=== PATIENT | female | born 1980 | race Caucasian/White ===

== ENCOUNTER 2022-04-19 08:00 | Outpatient (CLI) | payer BC, SELFPAY ==
--- NOTE | 2022-04-19 08:15 | CRLHL7_ITS ---
For Patients: As a result of the Century Cures Act, medical imaging exams and procedure reports are released immediately into your electronic medical record. You may view this report before your referring provider. If you have questions, please contact your health care provider. ULTRASOUND-GUIDED LEFT AXILLARY LYMPH NODE BIOPSY AND MARKER PLACEMENT CLINICAL HISTORY: Suspicious LEFT axillary lymph node. COMPARISON STUDIES: 04/11/2022. TECHNIQUE: Real-time ultrasound with image documentation was used for targeting the axillary lesion. Core biopsy specimens were obtained using an automated gun with an 18-gauge biopsy needle. CONSENT and TIME OUT: The procedure, risks, and alternatives were explained to the patient and a consent was signed. [place] Protocol was followed including pre-procedure verification that relevant information/documentation was available, reviewed and properly matched to the patient; consent accurate and complete; and equipment and supplies available. Time Out was conducted just prior to starting procedure to verify the four required elements: patient identity, correct side/site marked (if applicable), procedure, relevant images/results properly labeled and displayed (if applicable). PROCEDURE: The patient was positioned supine on the ultrasound table. The LEFT axilla was prepped with ChloraPrep. 8 cc 1 percent lidocaine used for local anesthesia. Core samples were obtained. A sterile metal biopsy clip was placed percutaneously to britt the lesion position within the LEFT axilla. The specimens were placed in 10% formalin and sent to the pathology department. Pressure was held on the biopsy site until all bleeding subsided. The skin incision was closed with Steri-Strips. An ice pack was positioned over the biopsy site. Post-biopsy instructions were reviewed with the patient, and a written copy was given to her. LATERALITY: LEFT axilla. LESION: Enlarged LEFT axillary lymph node with a thickened hypoechoic cortex measuring 2.4 x 1.0 x 1.1 cm. SUSPICION FOR MALIGNANCY: High. NUMBER OF SAMPLES: 5. BIOPSY CLIP SHAPE: Coil. PROXIMITY OF CLIP TO TARGET: Within the lesion. IMPRESSION: Ultrasound-guided LEFT axillary lymph node biopsy. When the pathology report is available, an addendum to this report will be made. ACR not applicable Dictated by Humble Burnham MD @ 04/19/2022 11:00:16 AM jj/Dictated by: Humble Burnham MD @ 04/19/2022 11:00:00 AM (Electronically Signed) ----ADDENDUM---- Addendum: Pathology consistent with metastatic disease to the LEFT axillary lymph node. This is concordant. Appropriate action recommended. HUMBLE BURNHAM M.D. Diagnostic Radiologist [email or web address] HOLDEN/tracy D& Transcribed: 2:[address]/Dictated by: Humble Burnham MD @ 04/19/2022 11:00:00 AM Signed by:?Humble Burnham MD @04/22/2022 3:37:46 PM (Electronic Signature)
--- NOTE | 2022-04-19 09:15 | CRLHL7_ITS ---
For Patients: As a result of the Century Cures Act, medical imaging exams and procedure reports are released immediately into your electronic medical record. You may view this report before your referring provider. If you have questions, please contact your health care provider. ULTRASOUND-GUIDED CORE NEEDLE BREAST BIOPSY OF TWO AND POST-BIOPSY DIGITAL MAMMOGRAM FOR BIOPSY MARKER PLACEMENT CLINICAL HISTORY: Suspicious LEFT breast masses. COMPARISON STUDIES: 04/11/2022. TECHNIQUE: Real-time ultrasound with image documentation was used for targeting the breast lesions. A spring-loaded biopsy system was used to obtain core tissue samples with an 18-gauge needle. Post-biopsy CC and ML digital mammograms were obtained to document position of the biopsy marker. CONSENT and TIME OUT: The procedure, risks, and alternatives were explained to the patient and a consent was signed. [place] Protocol was followed including pre-procedure verification that relevant information/documentation was available, reviewed and properly matched to the patient; consent accurate and complete; and equipment and supplies available. Time Out was conducted just prior to starting procedure to verify the four required elements: patient identity, correct side/site marked (if applicable), procedure, relevant images/results properly labeled and displayed (if applicable). PROCEDURE: All biopsies were performed in a similar manner. The patient was positioned supine on the ultrasound table. The breast was prepped with ChloraPrep. 8 cc of 1 percent lidocaine used for local anesthesia regarding each site. Core samples were obtained. A sterile metal biopsy clip was placed percutaneously to britt the lesion position within the breast. The specimens were placed in 10% formalin and sent to the Pathology Department. Pressure was held on the biopsy site until all bleeding subsided. The skin incision was closed with Steri-Strips. An ice pack was positioned over the biopsy site. The patient tolerated the procedure well. Post-biopsy instructions were reviewed with the patient, and a written copy was given to her. SITE A: LATERALITY: LEFT breast. LESION: Spiculated hypoechoic solid mass 2 o`clock 8 cm from the nipple measuring approximately 4.0 x 2.8 x 2.1 cm. SUSPICION: High. NUMBER OF SAMPLES: 5. BIOPSY CLIP SHAPE: Ribbon. PROXIMITY OF CLIP TO TARGET: Within the lesion. SITE B: LATERALITY: LEFT breast. LESION: Solid lobulated hypoechoic mass measuring 1.3 x 1.1 x 1.5 cm 1 o`clock 10 cm from the nipple. SUSPICION: High. NUMBER OF SAMPLES: 5. BIOPSY CLIP SHAPE: Coil. PROXIMITY OF CLIP TO TARGET: Within the lesion. DISTANCE BETWEEN: Sites A and B: 1 cm. IMPRESSION: Ultrasound-guided breast biopsy of two sites. When the pathology report is available, an addendum to this report will be made. ACR not applicable Dictated by Humble Burnham MD @ 04/19/2022 10:52:42 AM jj/Dictated by: Humble Burnham MD @ 04/19/2022 10:52:00 AM (Electronically Signed) ----ADDENDUM---- Addendum: Pathology consistent with invasive ductal carcinoma for both breast lesions and metastatic disease to the LEFT axillary lymph node. These results are concordant. Appropriate action is recommended. HUMBLE BURNHAM M.D. Diagnostic Radiologist [email or web address] HOLDEN/tracy D& Transcribed: 2:30 p.m. Signed by:?Humble Burnham MD @04/22/2022 3:37:43 PM (Electronic Signature)
--- NOTE | 2022-04-19 10:00 | CRLHL7_ITS ---
For Patients: As a result of the Cures Act, medical imaging exams and procedure reports are released immediately into your electronic medical record. You may view this report before your referring provider. If you have questions, please contact your health care provider. PLEASE SEE ULTRASOUND-GUIDED LEFT BREAST TWO-SITE BIOPSY PERFORMED SAME DAY CRL:[email or web address] marks/Dictated by: Donadl Bowie MD @ 04/19/2022 10:53:00 AM (Electronically Signed)
== END 2022-04-19 08:01 | disposition home or self-care (01) ==
LOC: US 08:05
PROVIDERS: Visit Provider Physician Assistant Medical
DX: N63.20 Unspecified lump in the left breast, unspecified quadrant (principal); C50.912 Malignant neoplasm of unspecified site of left female breast; R92.8 Other abnormal and inconclusive findings on diagnostic imaging of breast
CPT/HCPCS: 19083; 19084; 38505; 76942; 77065; 88305; 88342; 88361; 88377; A4648; A4649

== ENCOUNTER 2022-04-26 14:49 | Outpatient (CLI) | payer BC, SELFPAY ==
--- NOTE | 2022-04-26 15:00 | CRLHL7_ITS ---
For Patients: As a result of the Century Cures Act, medical imaging exams and procedure reports are released immediately into your electronic medical record. You may view this report before your referring provider. If you have questions, please contact your health care provider. BILATERAL BREAST MRI WITHOUT AND WITH GADOLINIUM, 04/26/2022 CLINICAL HISTORY: New diagnosis LEFT breast cancer. Diagnosed by ultrasound biopsy 04/19/2022. Biopsy-proven lymph node involvement. Two sites of cancer within the LEFT breast as well as a positive lymph node. History of BILATERAL silicone breast implants for augmentation. History of breast lift 10/2021. INDICATION FOR BREAST MRI: Staging of newly diagnosed breast cancer and screening of contralateral breast. Regional lymph nodes will also be assessed. COMPARISON STUDIES: BILATERAL mammogram 04/11/2022, ultrasound breast biopsy two sites with ultrasound-guided lymph node biopsy LEFT axilla 04/19/2022. CONTRAST: 15 mL Dotarem. TECHNIQUE: The patient was positioned prone using a breast coil. Multiple imaging sequences were obtained using 1-1.5 mm thick slices with no gap. The image sequences include T2-weighted STIR in the axial plane, T1-weighted nonfat-saturated gradient echo in the axial plane, pre- and post-contrast T1-weighted FLASH 3D with fat suppression in the axial plane, and T1-weighted FLASH high-resolution 3D with fat suppression in the sagittal plane. Image post-processing was performed on a [employer] workstation. Complex 3D rendering including maximum intensity projections (MIPS) and volumetric renderings were obtained to optimize visualization of the extent of pathology and relationship to the nipple, skin, and chest wall. This aids in determining feasibility of breast conservation surgery. Subtraction, multiplanar reconstruction, mean curve determination, and angiogenesis mapping were also performed. The study was technically adequate. FINDINGS: Breast Density: Scattered fibroglandular tissue. Breast Background Enhancement: Mild. RIGHT Breast: Negative for suspicious mass or non mass enhancement. LEFT Breast: Correlating with the ultrasound-guided biopsy at 2 o???clock 8 cm from the nipple there is a solid irregular mass containing a marker clip placed at biopsy. Measurement of the spiculated mass is 3 x 4 x 1.7 cm. At the 1 o???clock position the second site of cancer is identified as a solid enhancing rounded mass containing marker clip measurement 1 cm in diameter. In addition, there is segmental non mass enhancement extending toward the nipple over a length of 7 cm. This is suspicious enhancement and may correlate with the DCIS component of the diagnosis. If it would impact the treatment plan, consider biopsy of a more anterior site with MRI guidance. There is a small area of fat necrosis in the medial LEFT breast. Lymph Nodes: No enlarged RIGHT axillary nodes. There are enlarged lymph nodes in the LEFT axilla; one of which contains marker clip. At least three abnormal lymph nodes visualized. Other Findings: BILATERAL silicone breast implants subpectoral location unremarkable appearance. IMPRESSIONS AND RECOMMENDATIONS: Two biopsy-proven sites of breast cancer; the largest of which is at 2 o???clock 8 cm from the nipple measurement on MRI 3.1 x 4.4 x 1.7 cm. Second site 1 cm enhancing mass medial to the primary site. In addition, abnormal non mass enhancement extending towards the nipple 7 cm. If it would impact treatment consider biopsy of anterior site of enhancement to determine extent of disease. Abnormal LEFT axillary lymph nodes. RIGHT breast is negative. RIGHT axilla negative. BI-RADS: BI-RADS Category 4: Suspicious Yessenia Arreaga M.D. Body/Breast Radiologist [email or web address] ODELL/sarah Transcribed: 9:22 a.m. JR/Dictated by: Yessenia Arreaga MD @ 05/01/2022 9:10:00 AM (Electronically Signed)
== END 2022-04-26 14:50 | disposition home or self-care (01) ==
LOC: MRI 14:51
PROVIDERS: PCP Physician Assistant Medical; Visit Provider Surgery
DX: C50.912 Malignant neoplasm of unspecified site of left female breast (principal)
CPT/HCPCS: 77049; A9575

== ENCOUNTER 2022-05-07 07:56 | Day surgery (SDC) | payer BC, SELFPAY ==
[2022-05-07 08:14] VITALS: BMI 29.0
[2022-05-07] MEDS: SODIUM CHLORIDE 0.9 % (FLUSH) 10 ML SYRINGE IVF (08:30)
[2022-05-07] MEDS: LACTATED RINGERS 1000 ML 1,000 ML 100 ML IV (08:30)
[2022-05-07 08:36] VITALS: BP 134/84; PULSE 80; RESP 16; TEMP 36.7; O2SAT 99
--- NOTE | 2022-05-07 08:41 | SUR.PREOP ---
HOME COVID NEGATIVE.
--- NOTE | 2022-05-07 09:15 | CRLHL7_ITS ---
For Patients: As a result of the Century Cures Act, medical imaging exams and procedure reports are released immediately into your electronic medical record. You may view this report before your referring provider. If you have questions, please contact your health care provider. Indication: Port placement Technique: One fluoroscopic image of the upper chest. Fluoroscopic time 30.9 seconds. IMPRESSION: Fluoroscopic guidance for Port-A-Cath placement. Dictated by Donald Bowie MD @ 05/07/2022 10:20:14 AM (Electronically Signed)
[2022-05-07] MEDS: CEFAZOLIN 2 GM INJ IVP (09:20)
--- NOTE | 2022-05-07 09:20 | W.ANESCHARGE ---
Anesthesia Charges Start Date/Time Anesthesia Start Date: 05/07/22 Anesthesia Start Time: 09:10 Stop Date/Time Anesthesia Stop Date: 05/07/22 Anesthesia Stop Time: 10:13 Summary Emergency: No
[2022-05-07] MEDS: LIDOCAINE 1 % PF 30 ML INJECTION (09:27)
[2022-05-07] MEDS: BUPIVACAINE 0.5% 30 ML INJECTION (09:27)
[2022-05-07] MEDS: 0.9 % SODIUM CHL 20 ml vial INJECTION (09:40)
[2022-05-07] MEDS: HEPARIN 500 UNIT/5 ML SYRINGE IVF (09:50)
[2022-05-07] MEDS: ACETAMINOPHEN 325 MG TABLET 650 MG PO (10:04)
--- NOTE | 2022-05-07 10:04 | CRLHL7_ITS ---
For Patients: As a result of the Century Cures Act, medical imaging exams and procedure reports are released immediately into your electronic medical record. You may view this report before your referring provider. If you have questions, please contact your health care provider. Indication: POST OP PORT PLACEMENT Technique: Chest one view IMPRESSION: Right-sided Port-A-Cath is present with the tip in the mid SVC. No pneumothorax or pleural effusion. Dictated by Donald Bowie MD @ 05/07/2022 10:25:33 AM (Electronically Signed)
--- NOTE | 2022-05-07 10:07 | PM.GSPRC ---
Operative Note Date of procedure: 05/07/22 Pre-op diagnosis: Breast cancer Post-op diagnosis: Same Type of Procedure: Right internal jugular Port-A-Cath Indications: Patient is a 42-year-old female with recently new diagnosis invasive ductal carcinoma of the left breast. She has met with a surgeon, and an oncologist with recommendations for neoadjuvant treatment. Risks and benefits of port a catheter placement were discussed at length with the patient. Risks included, but were not limited to: Bleeding, infection, risk of damage to surrounding structures possible need for additional procedures. All questions and concerns were addressed with patient agreeing to proceed. Procedure Description: After discussing the risks and benefits of the procedure, the patient signed informed consent.? The operative site was marked and the patient was brought to the operating room and placed on the operating table in supine position.? Care was taken to pad the patient's pressure points.?? The patient was then given sedation by anesthesia.?? The operative site was then prepped and draped in the usual sterile fashion.? A time-out was then performed. The patient's right internal jugular vein was visualized using ultrasound. Local anesthetic was injected into the neck skin above the vein. This was accessed percutaneously via Seldinger technique using ultrasound guidance. A skin brittanie was made around the wire. Next local anesthetic was injected into the skin below the clavicle and along the proposed tract to the neck incision. A skin incision was then made with a 15 blade and a pocket created in the chest wall with cautery. A tunneler was then used to thread the catheter from the chest wall pocket to the neck incision. Once this was done fluoroscopy was brought into the field. Over the wire the tract was dilated using fluoroscopy. The wire and the dilator were then removed leaving the sheath intact in the vein. Through this the catheter was threaded. Using fluoroscopy the catheter was positioned into the distal SVC. The catheter was noted to flush and aspirate easily. The catheter was then connected to the port. The port was placed in the pocket and secured in place with two 2 0 Prolene stay sutures. It was noted to flush and aspirate easily. This was then locked with heparinized saline. The skin was closed with absorbable suture. Sterile dressings were applied. Instrument sponge and needle counts were correct at the end of the case. The patient was woken and taken to the PACU in stable condition. ? Findings: Compressible right internal jugular vein, successful placement of port a catheter Anesthesia: MAC Surgeon: Corina Zambrano MD Estimated blood loss (mL): 5 Condition: stable Disposition: same day
[2022-05-07 10:08] VITALS: BP 140/85; PULSE 82; RESP 16; TEMP 36.9; O2SAT 98
--- NOTE | 2022-05-07 10:14 | W.ANESCHARGE ---
Anesthesia Charges Start Date/Time Anesthesia Start Date: 05/07/22 Anesthesia Start Time: 09:10 Stop Date/Time Anesthesia Stop Date: 05/07/22 Anesthesia Stop Time: 10:13 Summary Emergency: No
[2022-05-07 10:15] VITALS: BP 133/87; PULSE 78; RESP 16; O2SAT 98
[2022-05-07 10:30] VITALS: BP 121/79; PULSE 67; RESP 16; O2SAT 98
[2022-05-07 10:45] VITALS: BP 116/76; PULSE 68; RESP 16; O2SAT 98
[2022-05-07 11:00] VITALS: BP 115/71; PULSE 67; RESP 16; O2SAT 97
== END 2022-05-07 11:30 | disposition home or self-care (01) ==
PROVIDERS: PCP Physician Assistant Medical; Visit Provider Surgery
PROC: (CPT 36561; principal; 2022-05-07 09:15)
DX: Z45.2 Encounter for adjustment and management of vascular access device (principal); C50.912 Malignant neoplasm of unspecified site of left female breast; Z17.0 Estrogen receptor positive status [ER+]
CPT/HCPCS: 36561; 00532; 71045; A9270; C1788; J0690; J1642; J1885; J2001; J2250; J2405; J2704; J3010; J3490; J7120

== ENCOUNTER 2022-05-10 12:53 | Outpatient (CLI) | payer BC, SELFPAY ==
[2022-05-10] MEDS: PERFLUTREN LIPID MICROSPHERES 2 ML VIAL IV (13:46)
--- NOTE | 2022-05-10 13:47 | PC.NURSE ---
Definity given via 20g PIV in right wrist 2ml pushed. tolerated well. Lot# [id number] Exp Date: 01/14/23. PIV taken out and catheter intact.
== END 2022-05-10 12:54 | disposition home or self-care (01) ==
LOC: RAD 12:53
PROVIDERS: PCP Physician Assistant Medical; Visit Provider Nurse Practitioner Family
DX: Z51.11 Encounter for antineoplastic chemotherapy (principal); C50.919 Malignant neoplasm of unspecified site of unspecified female breast
CPT/HCPCS: 93306; Q9957

== ENCOUNTER 2022-06-26 14:25 | Outpatient (CLI) | payer BC, SELFPAY ==
--- NOTE | 2022-06-26 14:30 | CRLHL7_ITS ---
For Patients: As a result of the 21st Century Cures Act, medical imaging exams and procedure reports are released immediately into your electronic medical record. You may view this report before your referring provider. If you have questions, please contact your health care provider. BILATERAL BREAST MRI WITHOUT AND WITH GADOLINIUM, 06/26/2022 CLINICAL HISTORY: 42-year-old female with recently diagnosed LEFT breast cancer, currently undergoing neoadjuvant therapy. Positive LEFT axillary lymph node. INDICATION FOR BREAST MRI: Evaluate response to neoadjuvant therapy. COMPARISON STUDIES: Mammogram and ultrasound 04/11/2022, breast MRI 04/26/2022. CONTRAST: 20 cc of Dotarem. TECHNIQUE: The patient was positioned prone using a breast coil. Multiple imaging sequences were obtained using 1-1.5 mm thick slices with no gap. The image sequences include T2-weighted STIR in the axial plane, T1-weighted nonfat-saturated gradient echo in the axial plane, pre- and post-contrast T1-weighted FLASH 3D with fat suppression in the axial plane, and T1-weighted FLASH high resolution 3D with fat suppression in the sagittal plane. Image post-processing was performed on a [employer] workstation. Complex 3D rendering including maximum intensity projections (MIPS) and volumetric renderings were obtained to optimize visualization of the extent of pathology and relationship to the nipple, skin, and chest wall. This aids in determining feasibility of breast conservation surgery. Subtraction, multiplanar reconstruction, mean curve determination, and angiogenesis mapping were also performed. The study was technically adequate. FINDINGS: Amount of Fibroglandular Tissue: Scattered fibroglandular tissue. Breast Background Enhancement: Moderate. RIGHT Breast: There is a subpectoral implant in place. No suspicious areas of enhancement. LEFT Breast: At 2 o`clock, middle to posterior depth there is an irregular mass with irregular margins and heterogeneous internal enhancement which measures 2.3 x 4.1 x 1.4 cm, previously 3.1 x 4.4 x 1.7 cm. Artifact from a biopsy marker clip is seen within the mass. Medial to this mass there is a second site of biopsy-proven malignancy which measures 1.0 x 0.7 x 0.7 cm, previously 1.2 x 1.0 x 0.9 cm. There is persistent non mass enhancement which extends anteriorly towards the nipple measuring approximately 6 cm the degree of enhancement appears less. Lymph Nodes: Decreased size of the LEFT axillary lymph nodes including the previously biopsied lymph node which measures 1.1 x 0.5 cm, previously 1.9 x 1.0 cm IMPRESSIONS AND RECOMMENDATIONS: LEFT breast: 1. Mild decreased size of the biopsy-proven malignant, consistent with treatment response. 2. Decreased size of a LEFT axillary lymph nodes which now appear morphologically normal. 3. Surgical/oncologic follow-up for continued management. RIGHT breast: Negative, there is no MRI evidence of contralateral malignancy. BI-RADS Category 6: Known Biopsy-Proven Malignancy Dictated by Usha Marc MD @ 06/27/2022 9:27:08 AM JR/Dictated by: Usha Marc MD @ 06/27/2022 9:27:00 AM (Electronically Signed)
== END 2022-06-26 14:26 | disposition home or self-care (01) ==
LOC: MRI 14:26
PROVIDERS: PCP Physician Assistant Medical; Visit Provider Physician Assistant
DX: C50.912 Malignant neoplasm of unspecified site of left female breast (principal)
CPT/HCPCS: 77049; A9575

== ENCOUNTER 2022-06-30 11:05 | Emergency (ER) | payer BC, SELFPAY ==
[2022-06-30 11:16] VITALS: BP 138/83; PULSE 86; RESP 18; TEMP 36.6; O2SAT 98; BMI 23.6
[2022-06-30 11:33] LABS: Appearance Urine Clear (Clear); Bilirubin Urine Negative (Negative); Blood Urine Negative (Negative); Color Urine Yellow (Yellow); Glucose Urine Negative (Negative); Ketones Urine Negative (Negative); Leukocyte Esterase Urine Negative (Negative); Nitrite Urine Negative (Negative); Protein Urine 1+ (Negative); Specific Gravity Urine 1.015 (1.000-1.030); Urobilinogen Urine 0.2 (0.2-1.0); pH Urine 8.5 (5.0-8.5)
--- NOTE | 2022-06-30 11:35 | CRLHL7_ITS ---
For Patients: As a result of the 21st Century Cures Act, medical imaging exams and procedure reports are released immediately into your electronic medical record. You may view this report before your referring provider. If you have questions, please contact your health care provider. Indication: Epigastric pain Technique: CT abdomen and pelvis with IV contrast Please note that all CT scans at this facility use dose modulation, iterative reconstruction, and/or weight-based dosing when appropriate to reduce radiation dose to as low as reasonably achievable. Comparison: None Findings: Bilateral breast implants. Lung bases clear. Normal heart size. No pericardial effusion. Normal liver size and contour. Diffuse hepatic steatosis. Hepatic and portal veins appear patent. No biliary dilatation. Normal gallbladder. Adrenal glands, kidneys, spleen, pancreas, stomach and duodenum are unremarkable. Normal course and caliber of the abdominal aorta and IVC. The aortic side branches and the renal veins appear patent. There is no lymphadenopathy. Bladder unremarkable. Status post hysterectomy. No bowel obstruction or bowel wall thickening. There is mural fat deposition within the colon. The appendix appears normal. No significant free fluid. No peritoneal soft tissue nodularity. No acute osseous abnormality. Impression: No etiology identified for patient`s epigastric pain. Please note that all CT scans at this facility use dose modulation, iterative reconstruction, and/or weight-based dosing when appropriate to reduce radiation dose to as low as reasonably achievable. Dictated by Ton Weaver MD @ 06/30/2022 12:53:35 PM (Electronically Signed)
--- NOTE | 2022-06-30 11:36 | ED.ABDPAIN ---
HPI - Abdominal Pain General Chief Complaint: Abdominal Pain Stated Complaint: Stomach burning and cramping Time Seen by Provider: 06/30/22 11:27 History of Present Illness HPI narrative: This 42-year-old female comes in reporting upper epigastric abdominal pain that began a few hours prior to arrival. She states that it is a crampy pain that comes and goes and currently she is not having any pain at the time of my visit. She does have a history of breast cancer and is undergoing chemotherapy. She does not report any nausea, vomiting, diarrhea, or fevers. She does arrive with normal vital signs. Related Data Home Medications Medication Instructions Recorded Confirmed ascorbate calcium (vitamin C) 500 250 mg PO DAILY 05/06/22 06/17/22 mg tablet bupropion HCl 150 mg 24 hr tablet, 150 mg PO DAILY 05/06/22 06/17/22 extended release cholecalciferol (vitamin D3) 125 5,000 unit PO DAILY 05/06/22 06/17/22 mcg (5,000 unit) capsule hydroxyzine HCl 10 mg tablet 10 mg PO Q8H PRN 05/06/22 06/17/22 magnesium citrate 100 mg capsule 250 mg PO QDAY PRN 05/06/22 06/17/22 mecobalamin (vitamin B12) 1,000 3,000 mcg sublingual QDAY 05/06/22 06/17/22 mcg disintegrating tablet,sublingual zinc sulfate 50 mg zinc (220 mg) 30 mg PO QDAY 05/06/22 06/17/22 tablet Previous Rx's Medication Instructions Recorded dexamethasone 4 mg tablet 8 mg PO BID PRN nausea #36 tabs 05/10/22 olanzapine 2.5 mg tablet 2.5 - 5 mg PO QHS chemotherapy 05/10/22 nausea #30 tabs ondansetron 4 mg disintegrating 4 mg PO Q6H PRN nausea #30 tabs 05/10/22 tablet prochlorperazine maleate 10 mg 10 mg PO TID PRN nausea #30 tabs 05/10/22 tablet lidocaine-prilocaine 2.5 %-2.5 % 1 applic topical ONCE PRN to 05/16/22 topical cream prevent pain with port access #30 grams ketorolac 10 mg tablet 10 mg PO Q8H 5 days #15 tabs 06/30/22 pantoprazole 20 mg tablet,delayed 20 mg PO DAILY #20 tabs 06/30/22 release (Protonix) Allergies Allergy/AdvReac Type Severity Reaction Status Date / Time hydromorphone Allergy Unknown Verified 06/30/22 11:46 Sulfa (Sulfonamide Allergy Unknown Verified 06/30/22 11:46 Antibiotics) [facility] Medical History (Updated 06/30/22 @ 13:26 by Oziel Enrique MD) Anxiety ?F41.9 - Anxiety disorder, unspecified (ICD-10) Depression ?F32.A - Depression, unspecified (ICD-10) Endometriosis ?N80.9 - Endometriosis, unspecified (ICD-10) Lichen sclerosus ?L90.0 - Lichen sclerosus et atrophicus (ICD-10) Vitamin D deficiency ?E55.9 - Vitamin D deficiency, unspecified (ICD-10) Surgical History (Updated 05/06/22 @ 08:42 by Esther Pimentel RN) H/O: hysterectomy ?Z90.710 - Acquired absence of both cervix and uterus (ICD-10) S/P bronchoscopy ?Z98.890 - Other specified postprocedural states (ICD-10) S/P laparoscopy ?Z98.890 - Other specified postprocedural states (ICD-10) Family History (Updated 06/17/22 @ 08:55 by Valerie Mckeon PA-C) Sister No problems noted. Sister No problems noted. Social History Smoking Status: Former smoker Do you use any of these nicotine containing products: None Second hand tobacco smoke exposure: No How often do you have a drink containing alcohol: 2-3 times a week Alcohol type: wine How many standard drinks containing alcohol do you have on a typical day: 1 or 2 How often do you have six or more drinks on one occasion: Never AUDIT-C Alcohol total score: 3 Non-prescribed substance use: denies use Caffeine: Yes (DAILY) Are you using contraception or practicing any form of control: No Exam Narrative: Exam Narrative: Constitutional: Well-developed, well-nourished, no acute distress. HEENT: Normocephalic, atraumatic. Neck: Normal range of motion. Nontender. Supple. Heart: Regular. No murmurs. Normal rate. Intact distal pulses. Lungs: Clear to auscultation. No chest discomfort. No wheezes, rhonchi, or rales. Abdomen: Normal bowel sounds. Mild tenderness in the upper abdomen. No rebound tenderness. Genitalia: Deferred. Back: No midline tenderness. Normal range of motion. Extremities: Normal range of motion. No injury. Skin: Intact. No rash. Warm. No erythema or pallor. Neurologic: No altered sensation. No weakness. Alert and oriented. Psychiatric: No suicidality. No anxiety or depression. No insomnia. Nursing notes and vitals signs are reviewed. Const: Vital Signs, click to edit/add: Vital Signs - 24 hr 06/30/22 11:16 Temperature 97.9 F Pulse Rate [Right Pulse Oximeter] 86 Respiratory Rate 18 Blood Pressure [Le ft Upper Arm] 138/83 Pulse Oximetry 98 Oxygen Delivery Me thod Room Air Course Vital Signs Vital signs: Initial Vital Signs Temperature 97.9 F 06/30/22 11:16 Temperature Source Temporal Artery Scan 06/30/22 11:16 Pulse Rate 86 06/30/22 11:16 Respiratory Rate 18 06/30/22 11:16 Blood Pressure 138/83 06/30/22 11:16 Blood Pressure Mean 101 06/30/22 11:16 Blood Pressure Position Sitting 06/30/22 11:16 Pulse Oximetry 98 06/30/22 11:16 Oxygen Delivery Method Room Air 06/30/22 11:16 Vital Signs Temperature 97.9 F 06/30/22 11:16 Pulse Rate 86 06/30/22 11:16 Respiratory Rate 18 06/30/22 11:16 Blood Pressure 138/83 06/30/22 11:16 Pulse Oximetry 98 06/30/22 11:16 Oxygen Delivery Method Room Air 06/30/22 11:16 Temperature 97.9 F 06/30/22 11:16 Pulse Rate 86 06/30/22 11:16 Respiratory Rate 18 06/30/22 11:16 Blood Pressure 138/83 06/30/22 11:16 Pulse Oximetry 98 06/30/22 11:16 Oxygen Delivery Method Room Air 06/30/22 11:16 MDM - Abdominal Pain MDM Narrative Medical decision making narrative: This 42-year-old female comes in with intermittent crampy upper epigastric pain. She is undergoing chemotherapy for breast cancer. She is scheduled to have chemotherapy tomorrow and states that she has been tolerating it well so far. An IV was established and a CT scan was done which showed no findings to explain the patient's intermittent discomfort. This was reassuring to her. She is okay to be discharged home to continue current plans. I did provide prescription for Toradol and Protonix. Lab Data Labs: Lab Results 06/30/22 06/30/22 Range/Units 11:26 11:45 WBC 12.27 H (4.50-11.00) K/uL RBC 3.65 L (4.00-5.20) m/uL Hgb 11.4 L (12.0-16.0) gm/dL Hct 35.0 (33.0-51.0) % MCV 96 (80-100) fL MCH 31 (26-34) pg MCHC 33 (32-36) gm/dL RDW Coeff of Philipp 16.7 H (11.5-15.5) % Plt Count 297 (140-440) K/uL Neut % (Auto) 77.1 H (42.0-72.0) % Lymph % (Auto) 10.0 L (20-44) % Frederick % (Auto) 6.4 (0.0-11.0) % Eos % (Auto) 0.0 (0.0-7.0) % Baso % (Auto) 0.2 (0.0-3.0) % Neut # (Auto) 9.50 H (1.7-7.0) K/uL Lymph # (Auto) 1.20 (0.90-2.90) K/uL Frederick # (Auto) 0.80 (0.00-0.90) K/UL Eos # (Auto) 0.00 (0.00-0.50) K/uL Baso # (Auto) 0.00 (0.00-0.30) K/uL Diff Slide Review Acceptable Review (Acceptable) Sodium 139 (135-149) mmol/L Potassium 4.1 (3.6-5.1) mmol/L Chloride 105 (96-114) mmol/L Carbon Dioxide 28 (20-32) mmol/L BUN 6 (5-24) mg/dL Creatinine 0.6 (0.5-1.5) mg/dL Estimated Creat Clear 128.95 Estimated GFR 116 ml/min Glucose 102 (60-115) mg/dL Calcium 8.8 (8.4-10.6) mg/dL Urine Color Yellow (Yellow) Urine Appearance Clear (Clear) Urine pH 8.5 (5.0-8.5) Ur Specific [place] 1.015 (1.000-1.030) Urine Protein 1+ A (Negative) Urine Glucose (UA) Negative (Negative) Urine Ketones Negative (Negative) Urine Blood Negative (Negative) Urine Nitrite Negative (Negative) Urine Bilirubin Negative (Negative) Urine Urobilinogen 0.2 (0.2-1.0) Ur Leukocyte Esterase Negative (Negative) Urine RBC 0-2 (0-2) Urine WBC 2-5 (0-5) Ur Squamous Epith Cells Few (None-Few) Amorphous Sediment Many A (None) Urine Bacteria Few A (None) Discharge Plan Discharge Clinical Impression: Abdominal pain Patient Disposition: Home, Self-Care Condition: Stable Additional Instructions: Take medication as needed and indicated. Follow up with MD as scheduled. Return if worsening. Prescriptions: New ketorolac 10 mg tablet 10 mg PO Q8H 5 Days Qty: 15 0RF pantoprazole [Protonix] 20 mg tablet,delayed release (DR/EC) 20 mg PO DAILY Qty: 20 2RF No Action zinc sulfate 50 mg zinc (220 mg) tablet 30 mg PO QDAY ascorbate calcium (vitamin C) 500 mg tablet 250 mg PO DAILY mecobalamin (vitamin B12) 1,000 mcg tablet,disintegrating 3,000 mcg sublingual QDAY Rx Instructions: place tablet under tongue and allow to dissolve for at least30 secs before swallowing magnesium citrate 100 mg capsule 250 mg PO QDAY PRN olanzapine 2.5 mg tablet 2.5 - 5 mg PO QHS Qty: 30 0RF Rx Instructions: Take 1 tab at bedtime for 4 days, starting night of chemotherapy. May increase to 2 tabs (5mg) if needed. Hold for excess sedation and caution taking with other sedating medications. prochlorperazine maleate 10 mg tablet 10 mg PO TID PRN (Reason: nausea) Qty: 30 2RF Rx Instructions: Take for chemotherapy related nausea and vomiting. ondansetron 4 mg tablet,disintegrating 4 mg PO Q6H PRN (Reason: nausea) Qty: 30 2RF Rx Instructions: Take starting 24 hours after chemotherapy for nausea not controlled despite prochlorperazine (compazine). dexamethasone 4 mg tablet 8 mg PO BID PRN (Reason: nausea) Qty: 36 0RF Rx Instructions: Start only if directed. Take 2 tabs (8mg) twice per day for 3 days, starting the day after chemo. Take with food. hydroxyzine HCl 10 mg tablet 10 mg PO Q8H PRN Patient Comments: TAKE 1 TABLET BY MOUTH EVERY 8 HOURS NEEDED FOR ANXIETY OR ITCHING cholecalciferol (vitamin D3) 125 mcg (5,000 unit) capsule 5,000 unit PO DAILY Patient Comments: TAKE 1 CAPSULE BY MOUTH DAILY bupropion HCl 150 mg tablet extended release 24 hr 150 mg PO DAILY lidocaine-prilocaine 2.5-2.5 % cream 1 applic topical ONCE PRN (Reason: to prevent pain with port access) Qty: 30 0RF Rx Instructions: apply to port site 30 minutes prior to port access Follow Up/Referrals: Yaw Flores PA-C [Primary Care Provider] - Stand Alone Forms: MyHealth Info Instructions
[2022-06-30 11:42] LABS: Bacteria Urine Few; RBC Urine 0-2 (0-2); Squamous Epithelial Cell Urine Few (None-Few)
[2022-06-30 11:43] LABS: Amorphous Sediment Urine Many
[2022-06-30 11:53] LABS: Basophils Percent Auto 0.2 % (0.0-3.0); Hemoglobin* 11.4 gm/dL (12.0-16.0); Immature Granulocytes Pct Auto 6.3 %; Mean Corpuscular HGB Conc 33 gm/dL (32-36); Mean Corpuscular Hemoglobin 31 pg (26-34); Mean Corpuscular Volume 96 fL (80-100); Monocytes Percent Auto 6.4 % (0.0-11.0); Neutrophils Percent Auto 77.1 % (42.0-72.0); Platelet Count* 297 K/uL (140-440); RDW Coefficient of Variation % 16.7 % (11.5-15.5); Red Blood Count 3.65 m/uL (4.00-5.20); White Blood Count* 12.27 K/uL (4.50-11.00)
[2022-06-30 11:58] LABS: Slide Review Reflex Yes
[2022-06-30 11:59] LABS: Slide Review Acceptable Review (Acceptable)
[2022-06-30 12:04] LABS: Chloride* 105 mmol/L (96-114); Potassium* 4.1 mmol/L (3.6-5.1); Sodium* 139 mmol/L (135-149)
[2022-06-30 12:07] LABS: Blood Urea Nitrogen* 6 mg/dL (5-24); Carbon Dioxide* 28 mmol/L (20-32); Creatinine* 0.6 mg/dL (0.5-1.5); Est. Creatinine Clearance* 128.95; Estimated Glomerular Filt Rate 116 ml/min; Glucose* 102 mg/dL (60-115)
[2022-06-30 12:08] LABS: Calcium* 8.8 mg/dL (8.4-10.6)
[2022-07-01 08:54] LABS: Alanine Aminotransferase* 27 U/L (4-35); Alkaline Phosphatase* 123 U/L (40-150); Aspartate Amino Transferase* 24 U/L (12-35); Bilirubin Total* 0.4 mg/dL (0.1-1.5); Total Protein* 6.7 g/dL (6.0-8.3)
== END 2022-06-30 13:37 | disposition home or self-care (01) ==
PROVIDERS: Emergency Provider Emergency Medicine Emergency Medical Services; PCP Physician Assistant Medical
DX: R10.9 Unspecified abdominal pain (principal)
CPT/HCPCS: 36415; 74177; 80048; 80053; 81001; 85025; 87086; 99284; 99285; Q9967

== ENCOUNTER 2022-08-05 16:03 | Outpatient (CLI) | payer BC, SELFPAY ==
--- NOTE | 2022-08-05 16:30 | CRLHL7_ITS ---
For Patients: As a result of the Century Cures Act, medical imaging exams and procedure reports are released immediately into your electronic medical record. You may view this report before your referring provider. If you have questions, please contact your health care provider. INDICATION: Clinical signs and symptoms suggesting acute pulmonary embolus. COMPARISON: None TECHNIQUE: : CT examination of the chest was performed with the uneventful intravenous administration of 95 cc of Isovue 370 while thin axial sections were obtained from above the apices of the lungs to the lung bases. Please note that all CT scans at this facility use dose modulation, iterative reconstruction, and/or weight-based dosing when appropriate to reduce radiation dose to as low as reasonably achievable. FINDINGS: : HEART and MEDIASTINUM: The heart size is normal. There is no mediastinal or hilar adenopathy or mass. There is no pericardial effusion. PULMONARY ARTERIAL CIRCULATION: There is no visible intraluminal filling defect to suggest pulmonary embolus. LUNGS: The lungs show no focal consolidation or mass. The airways appear normal. A few patchy ground-glass opacities are noted on the left which could be atelectatic or mild inflammatory. PLEURAL SPACES: There is no pleural effusion, pneumothorax or pleural based mass. VISUALIZED UPPER ABDOMEN: The limited visualized upper abdominal structures appear normal. OSSEOUS STRUCTURES: Age-appropriate appearance. No acute fracture or destructive process. TUBES and LINES: Poor normally located CHEST WALL: Bilateral breast implants IMPRESSION: 1. There is no finding of pulmonary embolus. 2. A few patchy ground-glass opacities noted on the left. This could be atelectatic or mild inflammatory. No focal consolidation, infiltrate or mass. No pleural effusion or pneumothorax. 3. Port placed properly. 4. Bilateral breast implants. Please note that all CT scans at this facility use dose modulation, iterative reconstruction, and/or weight-based dosing when appropriate to reduce radiation dose to as low as reasonably achievable. Dictated by Terrell Jones MD @ 08/05/2022 5:01:09 PM (Electronically Signed)
== END 2022-08-05 16:04 | disposition home or self-care (01) ==
LOC: CT 16:03
PROVIDERS: PCP Physician Assistant Medical; Visit Provider Clinical Nurse Specialist
DX: C50.919 Malignant neoplasm of unspecified site of unspecified female breast (principal); Z51.11 Encounter for antineoplastic chemotherapy
CPT/HCPCS: 71260; Q9967

== ENCOUNTER 2022-10-01 09:00 | Outpatient (RCR) | payer BC, SELFPAY ==
--- NOTE | 2022-05-10 15:24 | ONC.NURNOTE ---
I met with patient and her spouse for chemotherapy teaching. Contents of the chemotherapy binder were reviewed including side effects of chemotherapy, what to report to provider and how to contact provider during and after hours. Anti-nausea plan reviewed and patient encouraged to burr picker prescriptions from her pharmacy. Consent obtained. Patient verbalizes understanding.
--- NOTE | 2022-05-13 16:27 | ONC.NURNOTE ---
Received call from pt reporting her Olanzapine prescription was not being covered by insurance d/t 2 pills/day. Primary Operator called Jannette Roca to clarify pt only taking for 4 night starting day of chemo, for a total of 4 cycles. Pharmacist confirmed that was covered by insurance. Pt notified; plans to picket [employer] med tomorrow.
--- NOTE | 2022-05-15 09:56 | URNOTE ---
Received request for Cyclophosphamide(9070), Adriamycin (J9000), Fosaprpitant (J1453), Palonosetron (J2469), Pegrilgrastim (J2506) and Taxol (J9264). Per Phil at [facility], [phone], prior auth is not required for chemotherapy. Call ref #[id number]/15/[id number]
[2022-05-16 08:57] VITALS: BP 145/86; PULSE 87; RESP 18; TEMP 36.9; O2SAT 96
[2022-05-16 09:31] LABS: Basophils Absolute Auto 0.02 K/uL (0.00-0.30); Basophils Percent Auto 0.4 % (0.0-3.0); Hematocrit 40.4 % (33.0-51.0); Hemoglobin* 13.1 gm/dL (12.0-16.0); Immature Granulocytes Abs Auto 0.01 K/uL (0.00-0.30); Immature Granulocytes Pct Auto 0.2 %; Lymphocytes Absolute Auto 2.08 K/uL (0.90-2.90); Lymphocytes Percent Auto 42.2 % (20-44); Mean Corpuscular HGB Conc 32 gm/dL (32-36); Mean Corpuscular Hemoglobin 30 pg (26-34); Mean Corpuscular Volume 92 fL (80-100); Monocytes Percent Auto 8.1 % (0.0-11.0); Neutrophils Absolute Auto 2.42 K/uL (1.7-7.0); Neutrophils Percent Auto 49.1 % (42.0-72.0); Platelet Count* 278 K/uL (140-440); Red Blood Count 4.39 m/uL (4.00-5.20); White Blood Count* 4.93 K/uL (4.50-11.00)
[2022-05-16 09:33] LABS: Slide Review Reflex No
[2022-05-16 09:44] LABS: Chloride* 107 mmol/L (96-114); Potassium* 4.2 mmol/L (3.6-5.1); Sodium* 140 mmol/L (135-149)
[2022-05-16 09:46] LABS: Bilirubin Total* 0.5 mg/dL (0.1-1.5); Carbon Dioxide* 27 mmol/L (20-32); Creatinine* 0.7 mg/dL (0.5-1.5); Estimated Glomerular Filt Rate 111 ml/min
[2022-05-16 09:47] LABS: Alanine Aminotransferase* 21 U/L (4-35); Alkaline Phosphatase* 100 U/L (40-150); Aspartate Amino Transferase* 19 U/L (12-35); Blood Urea Nitrogen* 12 mg/dL (5-24); Calcium* 8.4 mg/dL (8.4-10.6); Glucose* 85 mg/dL (60-115); Total Protein* 6.9 g/dL (6.0-8.3)
[2022-05-16] MEDS: dexAMETHasone 10 MG in 0.9 % SODIUM CHLORIDE 100 ml 100 ML 404 MG IVPB (10:28)
[2022-05-16] MEDS: PALONOSETRON 0.25 MG/5 ML inj IV (10:28)
[2022-05-16] MEDS: FOSAPREPITANT 150 MG inj 150 MG in 0.9 % SODIUM CHLORIDE 250 ml 250 ML 510 MG IVPB (10:49)
[2022-05-16] MEDS: DOXOrubicin 2 MG/ML inj 125 MG IVP (11:15)
--- NOTE | 2022-05-16 13:25 | ONC.NURNOTE ---
I met with patient in the infusion center during her chemotherapy session. I reviewed home antiemetic schedule and a printed copy was provided to patient. Patient aware that she should not take the Dexamethasone unless directed and she will wait to start Ondansetron for 24 hours, using only as needed. Patient shares that she has started a caring bridge page and has found it to be therapeutic. Patients is with her and she reports having a good support system. Patient encouraged to call with any questions or concerns.
[2022-05-17] MEDS: PEGFILGRASTIM 6 MG/0.6 ML SYRINGE SUBCUT (13:24)
--- NOTE | 2022-05-23 16:20 | ONC.NURNOTE ---
?Pt emailed asking if contraindications to trying a private IV service for increasing energy, [employer], which offers combinations of IV fluids and supplements/medicines. [employer] Console Monitor reviewed the company and the [employer] cocktail specifically with Latasha Whitehead CNP. She notes it is unknown how these infusions may interact with chemotherapy, so as a Provider she cannot determine whether it would be beneficial or harmful; reviewed with pt via email, along with an offer to speak on phone or come be seen in [facility] to discuss strategies for managing fatigue.
[2022-06-03 09:30] VITALS: BP 125/86; PULSE 79; RESP 14; TEMP 36.4; O2SAT 97
[2022-06-03 10:05] LABS: Basophils Absolute Auto 0.03 K/uL (0.00-0.30); Basophils Percent Auto 0.6 % (0.0-3.0); Eosinophils Absolute Auto 0.01 K/uL (0.00-0.50); Eosinophils Percent Auto 0.2 % (0.0-7.0); Hematocrit 37.5 % (33.0-51.0); Hemoglobin* 12.2 gm/dL (12.0-16.0); Immature Granulocytes Pct Auto 1.9 %; Lymphocytes Absolute Auto 1.78 K/uL (0.90-2.90); Lymphocytes Percent Auto 33.6 % (20-44); Mean Corpuscular HGB Conc 33 gm/dL (32-36); Mean Corpuscular Hemoglobin 30 pg (26-34); Mean Corpuscular Volume 93 fL (80-100); Monocytes Percent Auto 9.8 % (0.0-11.0); Neutrophils Absolute Auto 2.86 K/uL (1.7-7.0); Neutrophils Percent Auto 53.9 % (42.0-72.0); Platelet Count* 392 K/uL (140-440); RDW Coefficient of Variation % 12.9 % (11.5-15.5); Red Blood Count 4.05 m/uL (4.00-5.20)
[2022-06-03 10:15] LABS: Slide Review Reflex No
[2022-06-03 10:23] LABS: Chloride* 106 mmol/L (96-114)
[2022-06-03 10:24] LABS: Potassium* 3.9 mmol/L (3.6-5.1); Sodium* 139 mmol/L (135-149)
[2022-06-03 10:26] LABS: Aspartate Amino Transferase* 19 U/L (12-35); Bilirubin Total* 0.3 mg/dL (0.1-1.5); Carbon Dioxide* 27 mmol/L (20-32); Creatinine* 0.6 mg/dL (0.5-1.5); Estimated Glomerular Filt Rate 116 ml/min; Total Protein* 6.5 g/dL (6.0-8.3)
[2022-06-03 10:27] LABS: Alanine Aminotransferase* 22 U/L (4-35); Alkaline Phosphatase* 102 U/L (40-150); Blood Urea Nitrogen* 10 mg/dL (5-24); Calcium* 8.7 mg/dL (8.4-10.6); Glucose* 89 mg/dL (60-115)
[2022-06-03] MEDS: PALONOSETRON 0.25 MG/5 ML inj IV (12:28)
[2022-06-03] MEDS: dexAMETHasone 10 MG in 0.9 % SODIUM CHLORIDE 100 ml 100 ML 404 MG IVPB (12:28)
[2022-06-03] MEDS: FOSAPREPITANT 150 MG inj 150 MG in 0.9 % SODIUM CHLORIDE 250 ml 250 ML 510 MG IVPB (12:52)
[2022-06-03] MEDS: DOXOrubicin 2 MG/ML inj 125 MG IVP (13:47)
[2022-06-03 14:20] VITALS: BP 119/76; PULSE 86; RESP 16; TEMP 36.1; O2SAT 95
--- NOTE | 2022-06-03 15:07 | ONC.NURNOTE ---
Pt here for C2 AC; saw Radha Hudson APRN. See her note for detailed plan. Regarding pt's extensive fatigue following chemo, changed home antiemetic plan, which previously included Olanzapine D 1-4. Reviewed new plan with pt for Compazine TID w meals and HS for total of QID, with addition of Zofran on day 2, either alternating with Compazine or take instead of Compazine; hold Olanzapine and continue to hold oral Dex. If pt's nausea not well-controlled with this, pt to call in next few days. Future possibilities could include use of Lorazepam vs Olanzapine.
[2022-06-03 15:15] VITALS: BP 121/78; PULSE 87; RESP 16; TEMP 36.1; O2SAT 96
--- NOTE | 2022-06-03 16:06 | ONC.NURNOTE ---
1420 aprox. 3/4 of cytoxan infused. pt states her mouth feels weird. like cant take a deep breath. feels like breathing in outside air when its cold outside. vs [id number]. Radha ANN notified and assest pt. see note. medication shut off for 25 min and restarted at half the rate. pt elmer well..symptoms did no reoccur. 1515 pt discharged with sister. vs wnl.
--- NOTE | 2022-06-03 16:18 | ONC.NURNOTE ---
patient states uses mag. if constipated with good results. states sore on side of tongue completely healed. she said sore throat healed. pt states on medication by her AUDITING SPECIALIST at [facility]. ok to treat per Radha ANN
--- NOTE | 2022-06-11 09:06 | ONC.NURNOTE ---
Patient calls with an update on her condition. Patient states she took 4mg of Dexamethasone on Friday. She felt more alert but felt crabby. She did not take the steroid Friday. Over the weekend she noted intermittent pain around her port. She describes it as a pulling feeling. She states it happens 5-6 times per day. She denies redness, drainage or swelling at the port site and denies neck or arm swelling. Denies shortness of breath. Patient advised to continue monitoring and call if symptoms worsen or do not improve. Patient also wanted to note that she received preliminary results from her genetic testing. She tested positive for BRCA2 mutation. The final report is still pending. I explained to Sylvie that this doesn't change our current treatment plan but would have implications for surgery as well as post surgery treatment.
[2022-06-17 09:06] LABS: Basophils Absolute Auto 0.02 K/uL (0.00-0.30); Basophils Percent Auto 0.4 % (0.0-3.0); Hemoglobin* 12.1 gm/dL (12.0-16.0); Immature Granulocytes Abs Auto 0.36 K/uL (0.00-0.30); Immature Granulocytes Pct Auto 6.8 %; Lymphocytes Absolute Auto 1.75 K/uL (0.90-2.90); Lymphocytes Percent Auto 32.8 % (20-44); Mean Corpuscular HGB Conc 33 gm/dL (32-36); Mean Corpuscular Hemoglobin 31 pg (26-34); Mean Corpuscular Volume 93 fL (80-100); Monocytes Percent Auto 11.4 % (0.0-11.0); Neutrophils Absolute Auto 2.59 K/uL (1.7-7.0); Neutrophils Percent Auto 48.6 % (42.0-72.0); Platelet Count* 189 K/uL (140-440); RDW Coefficient of Variation % 14.6 % (11.5-15.5); Red Blood Count 3.97 m/uL (4.00-5.20); White Blood Count* 5.33 K/uL (4.50-11.00)
[2022-06-17 09:21] LABS: Albumin* 4.1 g/dL (3.3-5.0); Chloride* 106 mmol/L (96-114); Sodium* 139 mmol/L (135-149)
[2022-06-17 09:22] LABS: Potassium* 4.1 mmol/L (3.6-5.1)
[2022-06-17 09:24] LABS: Alanine Aminotransferase* 26 U/L (4-35); Alkaline Phosphatase* 113 U/L (40-150); Aspartate Amino Transferase* 19 U/L (12-35); Bilirubin Total* 0.4 mg/dL (0.1-1.5); Blood Urea Nitrogen* 9 mg/dL (5-24); Carbon Dioxide* 27 mmol/L (20-32); Creatinine* 0.6 mg/dL (0.5-1.5); Estimated Glomerular Filt Rate 116 ml/min; Glucose* 95 mg/dL (60-115); Total Protein* 6.8 g/dL (6.0-8.3)
[2022-06-17 09:25] LABS: Calcium* 8.8 mg/dL (8.4-10.6)
[2022-06-17 09:28] LABS: Slide Review Acceptable Review (Acceptable); Slide Review Reflex Yes
[2022-06-17] MEDS: PALONOSETRON 0.25 MG/5 ML inj IV (11:15)
[2022-06-17] MEDS: dexAMETHasone 10 MG in 0.9 % SODIUM CHLORIDE 100 ml 100 ML 404 MG IVPB (11:15)
[2022-06-17] MEDS: FOSAPREPITANT 150 MG inj 150 MG in 0.9 % SODIUM CHLORIDE 250 ml 250 ML 510 MG IVPB (11:37)
[2022-06-17] MEDS: DOXOrubicin 2 MG/ML inj 125 MG IVP (12:19)
--- NOTE | 2022-06-21 17:51 | ONC.NURNOTE ---
Pt called today noting that since yesterday she gets 15-20 squiggly lines in her vision when she looks at moderate to bright light, but does not have this vision change when looking at things in shade or indirect light. She denies blurred vision or any other eye symptoms. Recommended pt see her eye doctor for an eye exam and to continue to monitor her symptoms. If symptoms suddenly worsen or additional symptoms suddenly appear, pt to be seen in ED.
[2022-07-01] MEDS: SODIUM CHLORIDE 0.9 % (FLUSH) 10 ML SYRINGE IVF (09:56)
[2022-07-01] MEDS: 0.9 % SODIUM CHLORIDE 250 ml IV ×2 (09:56→10:02)
[2022-07-01] MEDS: dexAMETHasone 10 MG in 0.9 % SODIUM CHLORIDE 100 ml 100 ML 404 MG IVPB (10:02)
[2022-07-01] MEDS: PALONOSETRON 0.25 MG/5 ML inj IV (10:02)
[2022-07-01] MEDS: FOSAPREPITANT 150 MG inj 150 MG in 0.9 % SODIUM CHLORIDE 250 ml 250 ML 510 MG IVPB (10:22)
[2022-07-01] MEDS: DOXOrubicin 2 MG/ML inj 125 MG IVP (10:56)
--- NOTE | 2022-07-01 12:20 | ONC.NURNOTE ---
Taxol teaching completed with patient and , focusing on peripheral neuropathy, hypersensitivity reaction and other common side effects; questions answered, handout given. Appts scheduled.
[2022-07-15 08:07] VITALS: BP 134/83; PULSE 96; RESP 16; TEMP 36.2; O2SAT 98
[2022-07-15 08:39] LABS: Basophils Absolute Auto 0.03 K/uL (0.00-0.30); Basophils Percent Auto 0.5 % (0.0-3.0); Hematocrit 31.2 % (33.0-51.0); Hemoglobin* 10.2 gm/dL (12.0-16.0); Immature Granulocytes Abs Auto 0.56 K/uL (0.00-0.30); Immature Granulocytes Pct Auto 9.4 %; Lymphocytes Percent Auto 18.4 % (20-44); Mean Corpuscular HGB Conc 33 gm/dL (32-36); Mean Corpuscular Hemoglobin 32 pg (26-34); Mean Corpuscular Volume 98 fL (80-100); Neutrophils Absolute Auto 3.54 K/uL (1.7-7.0); Neutrophils Percent Auto 59.7 % (42.0-72.0); Platelet Count* 220 K/uL (140-440); RDW Coefficient of Variation % 18.6 % (11.5-15.5); Red Blood Count 3.18 m/uL (4.00-5.20); White Blood Count* 5.93 K/uL (4.50-11.00)
[2022-07-15 08:40] LABS: Slide Review Reflex No
[2022-07-15 09:03] LABS: Albumin* 3.7 g/dL (3.3-5.0); Chloride* 107 mmol/L (96-114); Sodium* 138 mmol/L (135-149)
[2022-07-15 09:04] LABS: Potassium* 3.7 mmol/L (3.6-5.1)
[2022-07-15 09:06] LABS: Alanine Aminotransferase* 22 U/L (4-35); Alkaline Phosphatase* 95 U/L (40-150); Aspartate Amino Transferase* 18 U/L (12-35); Bilirubin Total* 0.2 mg/dL (0.1-1.5); Blood Urea Nitrogen* 6 mg/dL (5-24); Calcium* 8.5 mg/dL (8.4-10.6); Carbon Dioxide* 27 mmol/L (20-32); Creatinine* 0.5 mg/dL (0.5-1.5); Estimated Glomerular Filt Rate 121 ml/min; Glucose* 101 mg/dL (60-115); Total Protein* 6.1 g/dL (6.0-8.3)
[2022-07-15] MEDS: dexAMETHasone 20 MG in 0.9 % SODIUM CHLORIDE 100 ml 100 ML 408 MG IVPB (09:44)
[2022-07-15] MEDS: ONDANSETRON 2 MG/ML inj 8 MG IVP (10:07)
[2022-07-15] MEDS: FAMOTIDINE 20 MG, diphenhydrAMINE 50 MG in 0.9 % SODIUM CHLORIDE 100 ml 100 ML 309 MG IVPB (10:07)
[2022-07-15] MEDS: 0.9 % SODIUM CHLORIDE 250 ml IV (10:48)
--- NOTE | 2022-07-15 12:05 | ONC.NURNOTE ---
Called in 3 refills for Compazine 10mg PO TID PRN N/V #30 with 3 refills to pharmacy on file.
--- NOTE | 2022-07-16 11:59 | ONC.NURNOTE ---
Spoke with Sylvie this morning and she is feeling surprisingly well after her first Taxol. She denies any questions or concerns. Discussed with patient her plans for surgery. Patient is aware that Dr. Montelongo is leaving her practice and if she wants to do immediate reconstruction, she will need to find a new surgeon. Patient reached out to plastic surgeon Dr. Darrell Lopez and she will see him next week. From there, she will find out where he operates and what surgeons he works with.
[2022-07-22 10:01] LABS: Basophils Percent Auto 1.1 % (0.0-3.0); Eosinophils Percent Auto 0.2 % (0.0-7.0); Hematocrit 29.5 % (33.0-51.0); Hemoglobin* 9.8 gm/dL (12.0-16.0); Immature Granulocytes Pct Auto 1.6 %; Lymphocytes Percent Auto 23.6 % (20-44); Mean Corpuscular HGB Conc 33 gm/dL (32-36); Mean Corpuscular Hemoglobin 33 pg (26-34); Mean Corpuscular Volume 99 fL (80-100); Monocytes Percent Auto 10.1 % (0.0-11.0); Neutrophils Percent Auto 63.4 % (42.0-72.0); Platelet Count* 386 K/uL (140-440); RDW Coefficient of Variation % 17.9 % (11.5-15.5); Red Blood Count 2.98 m/uL (4.00-5.20); White Blood Count* 4.44 K/uL (4.50-11.00)
[2022-07-22 10:06] LABS: Slide Review Reflex No
[2022-07-22 10:21] LABS: Albumin* 3.8 g/dL (3.3-5.0); Chloride* 108 mmol/L (96-114); Sodium* 138 mmol/L (135-149)
[2022-07-22 10:24] LABS: Alanine Aminotransferase* 31 U/L (4-35); Alkaline Phosphatase* 82 U/L (40-150); Aspartate Amino Transferase* 21 U/L (12-35); Bilirubin Total* 0.3 mg/dL (0.1-1.5); Blood Urea Nitrogen* 5 mg/dL (5-24); Carbon Dioxide* 27 mmol/L (20-32); Creatinine* 0.6 mg/dL (0.5-1.5); Estimated Glomerular Filt Rate 116 ml/min; Glucose* 99 mg/dL (60-115); Total Protein* 6.2 g/dL (6.0-8.3)
[2022-07-22 10:25] LABS: Calcium* 8.6 mg/dL (8.4-10.6)
[2022-07-22 11:05] VITALS: BP 110/73; PULSE 81; RESP 16; TEMP 36.7; O2SAT 97
[2022-07-22] MEDS: 0.9 % SODIUM CHLORIDE 250 ml IV (11:08)
[2022-07-22] MEDS: dexAMETHasone 20 MG in 0.9 % SODIUM CHLORIDE 100 ml 100 ML 408 MG IVPB (11:08)
[2022-07-22] MEDS: ONDANSETRON 2 MG/ML inj 8 MG IVP (11:09)
[2022-07-22] MEDS: FAMOTIDINE 20 MG, diphenhydrAMINE 50 MG in 0.9 % SODIUM CHLORIDE 100 ml 100 ML 309 MG IVPB (11:33)
[2022-07-22] MEDS: HEPARIN 500 UNIT/5 ML SYRINGE IVF (13:18)
[2022-07-22] MEDS: SODIUM CHLORIDE 0.9 % (FLUSH) 10 ML SYRINGE IVF (13:18)
[2022-07-29 08:45] LABS: Basophils Percent Auto 0.5 % (0.0-3.0); Eosinophils Percent Auto 0.5 % (0.0-7.0); Hematocrit 28.9 % (33.0-51.0); Hemoglobin* 9.6 gm/dL (12.0-16.0); Lymphocytes Percent Auto 24.3 % (20-44); Mean Corpuscular HGB Conc 33 gm/dL (32-36); Mean Corpuscular Hemoglobin 33 pg (26-34); Mean Corpuscular Volume 101 fL (80-100); Monocytes Percent Auto 7.6 % (0.0-11.0); Neutrophils Percent Auto 66.1 % (42.0-72.0); Platelet Count* 262 K/uL (140-440); RDW Coefficient of Variation % 17.2 % (11.5-15.5); Red Blood Count 2.87 m/uL (4.00-5.20); White Blood Count* 3.83 K/uL (4.50-11.00)
[2022-07-29 08:48] LABS: Slide Review Reflex No
[2022-07-29 08:56] VITALS: BP 128/81; PULSE 92; RESP 18; TEMP 36.8; O2SAT 98
[2022-07-29] MEDS: 0.9 % SODIUM CHLORIDE 250 ml IV (09:02)
[2022-07-29] MEDS: SODIUM CHLORIDE 0.9 % (FLUSH) 10 ML SYRINGE IVF (09:02)
[2022-07-29 09:09] LABS: Albumin* 3.6 g/dL (3.3-5.0)
[2022-07-29 09:10] LABS: Chloride* 108 mmol/L (96-114); Sodium* 138 mmol/L (135-149)
[2022-07-29 09:12] LABS: Aspartate Amino Transferase* 20 U/L (12-35); Bilirubin Total* 0.6 mg/dL (0.1-1.5); Carbon Dioxide* 27 mmol/L (20-32); Creatinine* 0.6 mg/dL (0.5-1.5); Estimated Glomerular Filt Rate 116 ml/min
[2022-07-29 09:13] LABS: Alanine Aminotransferase* 28 U/L (4-35); Alkaline Phosphatase* 84 U/L (40-150); Blood Urea Nitrogen* 6 mg/dL (5-24); Calcium* 8.3 mg/dL (8.4-10.6); Glucose* 100 mg/dL (60-115); Potassium* 3.7 mmol/L (3.6-5.1); Total Protein* 5.8 g/dL (6.0-8.3)
[2022-07-29] MEDS: dexAMETHasone 20 MG in 0.9 % SODIUM CHLORIDE 100 ml 100 ML 408 MG IVPB (09:17)
[2022-07-29] MEDS: ONDANSETRON 2 MG/ML inj 8 MG IVP (09:17)
[2022-07-29] MEDS: FAMOTIDINE 20 MG, diphenhydrAMINE 50 MG in 0.9 % SODIUM CHLORIDE 100 ml 100 ML 420 MG IVPB (09:41)
--- NOTE | 2022-07-30 16:17 | ONC.NURNOTE ---
Returned call this morning ~1100 to pt who LM describing significant stomach cramps. Pt describes as lower middle of her belly; she states she has a high pain tolerance and these cramps were bringing her to tears. Pt has hx hysterectomy so menstrual issues ruled out. Denies urinary frequency, urgency or pain; no changes in color of urine. She describes her baseline bowel habits as having 2 soft stools/day. With having antiemetics/chemo yesterday, she had ~1 stool yesterday soft per usual, then this morning has significant cramping and passed a very hard stool. She denies n/v but does report slight acid reflux; she has a prescription to manage that and is taking it. Encouraged addition of Tums as needed. Pt denies fevers/chills. Upon lying down and pt palpating her abdomen, no increase or decrease of pain with putting pressure on upper and lower right quadrants and in general. Reviewed with pt that this could be abdominal cramping r/t constipation, but if she feels something more urgent is going on or symptoms worsen at all, recommended being seen in ED to r/o appendicitis, cholecystitis or other issues. Recommended pt remain hydrated these next few hours, try warm tea, and see if her symptoms improve. Pt and global technical writer agreed to connect via phone this afternoon. Dental Technician Instructor called pt at 1615 and LVM reiterating to go to ED if symptoms worsen or persist.
[2022-08-05 08:53] LABS: Basophils Percent Auto 0.5 % (0.0-3.0); Eosinophils Percent Auto 1.2 % (0.0-7.0); Hematocrit 31.7 % (33.0-51.0); Hemoglobin* 10.4 gm/dL (12.0-16.0); Lymphocytes Percent Auto 20.4 % (20-44); Mean Corpuscular HGB Conc 33 gm/dL (32-36); Mean Corpuscular Hemoglobin 34 pg (26-34); Mean Corpuscular Volume 104 fL (80-100); Monocytes Percent Auto 7.2 % (0.0-11.0); Neutrophils Percent Auto 69.7 % (42.0-72.0); Platelet Count* 326 K/uL (140-440); RDW Coefficient of Variation % 16.8 % (11.5-15.5); Red Blood Count 3.06 m/uL (4.00-5.20); White Blood Count* 4.17 K/uL (4.50-11.00)
[2022-08-05 08:56] LABS: Slide Review Reflex No
[2022-08-05 09:12] LABS: Albumin* 3.8 g/dL (3.3-5.0); Chloride* 107 mmol/L (96-114); Potassium* 3.8 mmol/L (3.6-5.1); Sodium* 137 mmol/L (135-149)
[2022-08-05 09:14] LABS: Aspartate Amino Transferase* 22 U/L (12-35); Bilirubin Total* 0.4 mg/dL (0.1-1.5); Carbon Dioxide* 26 mmol/L (20-32); Creatinine* 0.6 mg/dL (0.5-1.5); Estimated Glomerular Filt Rate 116 ml/min; Total Protein* 6.3 g/dL (6.0-8.3)
[2022-08-05 09:15] LABS: Alanine Aminotransferase* 32 U/L (4-35); Alkaline Phosphatase* 83 U/L (40-150); Blood Urea Nitrogen* 7 mg/dL (5-24); Calcium* 8.6 mg/dL (8.4-10.6); Glucose* 111 mg/dL (60-115)
[2022-08-05 09:18] VITALS: BP 139/94; PULSE 99; RESP 16; TEMP 37.1; O2SAT 98
[2022-08-05 11:37] LABS: Troponin I* 0.01 ng/mL (0.01-0.04)
[2022-08-05 11:50] LABS: D Dimer Quantitative* 0.27 ug/ml (0.00-0.50)
[2022-08-05] MEDS: FAMOTIDINE 20 MG, diphenhydrAMINE 50 MG in 0.9 % SODIUM CHLORIDE 100 ml 100 ML 309 MG IVPB (13:58)
[2022-08-05] MEDS: ONDANSETRON 2 MG/ML inj 8 MG IVP (13:59)
[2022-08-05] MEDS: dexAMETHasone 12 MG in 0.9 % SODIUM CHLORIDE 100 ml 100 ML 404.8 MG IVPB (14:00)
[2022-08-05 14:43] LABS: Magnesium* 1.8 mg/dL (1.5-2.6)
[2022-08-05] MEDS: SODIUM CHLORIDE 0.9 % (FLUSH) 10 ML SYRINGE IVF (15:11)
[2022-08-05] MEDS: 0.9 % SODIUM CHLORIDE 250 ml IV (15:11)
[2022-08-05] MEDS: HEPARIN 500 UNIT/5 ML SYRINGE IVF (15:11)
--- NOTE | 2022-08-05 15:20 | ONC.NURNOTE ---
Twila states chest pressure like she cant take a deep breath for 2 weeks. no temp. no sob. LS clear. heart reg s1s2. note has seasonal allergies and is on antihistamine. Radha Hudson APRN aware and saw pt. EKG. widen Q-T. pt to follow up with her primary. trop and Ddimer wnl. ok for chemo today. CT chest at 1600 today to r/o PE. Port wnl. sats wnl. Pt also states everytime she blows her rt nostril. theres blood clots. the bleeding stops. enc humidifier. toe nails a pit black on edged. feet and finger neuropathy present but not worsen. Radha aware.
--- NOTE | 2022-08-05 15:42 | ONC.NURNOTE ---
teaching info given to pt. on Iron replacement and foods higher in Iron. pt enc to take miralax daily if needed for constipation. suggested metamucil daily. states miralax works well.
[2022-08-12 08:00] VITALS: BP 146/77; PULSE 98; RESP 16; TEMP 36.4; O2SAT 98
[2022-08-12 08:23] LABS: Basophils Percent Auto 0.6 % (0.0-3.0); Eosinophils Percent Auto 1.8 % (0.0-7.0); Hematocrit 31.6 % (33.0-51.0); Hemoglobin* 10.3 gm/dL (12.0-16.0); Immature Granulocytes Pct Auto 0.6 %; Lymphocytes Percent Auto 24.9 % (20-44); Mean Corpuscular HGB Conc 33 gm/dL (32-36); Mean Corpuscular Hemoglobin 34 pg (26-34); Mean Corpuscular Volume 105 fL (80-100); Monocytes Percent Auto 7.3 % (0.0-11.0); Neutrophils Percent Auto 64.8 % (42.0-72.0); Platelet Count* 301 K/uL (140-440); RDW Coefficient of Variation % 15.7 % (11.5-15.5); Red Blood Count 3.01 m/uL (4.00-5.20); White Blood Count* 3.42 K/uL (4.50-11.00)
[2022-08-12 08:27] LABS: Slide Review Reflex No
[2022-08-12 08:36] LABS: Albumin* 3.8 g/dL (3.3-5.0); Chloride* 105 mmol/L (96-114); Sodium* 138 mmol/L (135-149)
[2022-08-12 08:37] LABS: Potassium* 3.8 mmol/L (3.6-5.1)
[2022-08-12 08:39] LABS: Alkaline Phosphatase* 83 U/L (40-150); Aspartate Amino Transferase* 24 U/L (12-35); Bilirubin Total* 0.6 mg/dL (0.1-1.5); Blood Urea Nitrogen* 8 mg/dL (5-24); Carbon Dioxide* 26 mmol/L (20-32); Creatinine* 0.6 mg/dL (0.5-1.5); Estimated Glomerular Filt Rate 116 ml/min; Glucose* 104 mg/dL (60-115); Total Protein* 6.2 g/dL (6.0-8.3)
[2022-08-12 08:40] LABS: Alanine Aminotransferase* 30 U/L (4-35); Calcium* 8.6 mg/dL (8.4-10.6)
[2022-08-12] MEDS: 0.9 % SODIUM CHLORIDE 250 ml IV (09:20)
[2022-08-12] MEDS: dexAMETHasone 12 MG in 0.9 % SODIUM CHLORIDE 100 ml 100 ML 404.8 MG IVPB (09:20)
[2022-08-12] MEDS: ONDANSETRON 2 MG/ML inj 8 MG IVP (09:20)
[2022-08-12] MEDS: FAMOTIDINE 20 MG, diphenhydrAMINE 50 MG in 0.9 % SODIUM CHLORIDE 100 ml 100 ML 309 MG IVPB (09:48)
[2022-08-12] MEDS: SODIUM CHLORIDE 0.9 % (FLUSH) 10 ML SYRINGE IVF (09:49)
[2022-08-12] MEDS: HEPARIN 500 UNIT/5 ML SYRINGE IVF (09:49)
--- NOTE | 2022-08-12 10:04 | ONC.NURNOTE ---
states no more chest pressure. states slowed down a bet. sleeping well. occ bloody nose able to stop. small loose stools 3x day. good po intake and u/o. states neuropathy is mild.
[2022-08-19 10:24] LABS: Basophils Percent Auto 0.6 % (0.0-3.0); Eosinophils Percent Auto 1.2 % (0.0-7.0); Hemoglobin* 10.3 gm/dL (12.0-16.0); Immature Granulocytes Pct Auto 0.6 %; Lymphocytes Percent Auto 25.4 % (20-44); Mean Corpuscular HGB Conc 33 gm/dL (32-36); Mean Corpuscular Hemoglobin 35 pg (26-34); Mean Corpuscular Volume 106 fL (80-100); Monocytes Percent Auto 8.2 % (0.0-11.0); Platelet Count* 329 K/uL (140-440); RDW Coefficient of Variation % 14.8 % (11.5-15.5); Red Blood Count 2.93 m/uL (4.00-5.20); White Blood Count* 3.42 K/uL (4.50-11.00)
[2022-08-19 10:27] LABS: Slide Review Reflex No
[2022-08-19 10:39] LABS: Chloride* 105 mmol/L (96-114)
[2022-08-19 10:40] LABS: Potassium* 3.7 mmol/L (3.6-5.1); Sodium* 138 mmol/L (135-149)
[2022-08-19 10:42] LABS: Creatinine* 0.6 mg/dL (0.5-1.5); Estimated Glomerular Filt Rate 116 ml/min
[2022-08-19 10:43] LABS: Alanine Aminotransferase* 44 U/L (4-35); Alkaline Phosphatase* 98 U/L (40-150); Aspartate Amino Transferase* 27 U/L (12-35); Bilirubin Total* 0.6 mg/dL (0.1-1.5); Blood Urea Nitrogen* 5 mg/dL (5-24); Carbon Dioxide* 27 mmol/L (20-32); Glucose* 87 mg/dL (60-115); Total Protein* 6.5 g/dL (6.0-8.3)
[2022-08-19 10:44] LABS: Calcium* 8.8 mg/dL (8.4-10.6)
[2022-08-19] MEDS: ONDANSETRON 2 MG/ML inj 8 MG IVP (12:12)
[2022-08-19] MEDS: dexAMETHasone 12 MG in 0.9 % SODIUM CHLORIDE 100 ml 100 ML 420 MG IVPB (12:13)
[2022-08-19] MEDS: FAMOTIDINE 20 MG, diphenhydrAMINE 50 MG in 0.9 % SODIUM CHLORIDE 100 ml 100 ML 420 MG IVPB (12:46)
[2022-08-19] MEDS: SODIUM CHLORIDE 0.9 % (FLUSH) 10 ML SYRINGE IVF (14:34)
[2022-08-19] MEDS: HEPARIN 500 UNIT/5 ML SYRINGE IVF (14:34)
[2022-08-26 08:23] VITALS: BP 143/84; PULSE 104; RESP 16; TEMP 37; O2SAT 99
[2022-08-26 08:24] LABS: Hematocrit 32.7 % (33.0-51.0); Hemoglobin* 10.7 gm/dL (12.0-16.0); Mean Corpuscular HGB Conc 33 gm/dL (32-36); Mean Corpuscular Hemoglobin 35 pg (26-34); Mean Corpuscular Volume 107 fL (80-100); Red Blood Count 3.06 m/uL (4.00-5.20); White Blood Count* 2.98 K/uL (4.50-11.00)
[2022-08-26 08:25] LABS: Basophils Percent Auto 0.7 % (0.0-3.0); Eosinophils Percent Auto 1.7 % (0.0-7.0); Lymphocytes Percent Auto 26.8 % (20-44); Monocytes Percent Auto 9.1 % (0.0-11.0); Neutrophils Percent Auto 60.7 % (42.0-72.0); Platelet Count* 310 K/uL (140-440); RDW Coefficient of Variation % 14.5 % (11.5-15.5); Slide Review Reflex No
[2022-08-26 08:38] LABS: Albumin* 4.1 g/dL (3.3-5.0); Chloride* 106 mmol/L (96-114)
[2022-08-26 08:39] LABS: Potassium* 3.7 mmol/L (3.6-5.1); Sodium* 140 mmol/L (135-149)
[2022-08-26 08:41] LABS: Aspartate Amino Transferase* 21 U/L (12-35); Bilirubin Total* 0.5 mg/dL (0.1-1.5); Carbon Dioxide* 25 mmol/L (20-32); Creatinine* 0.7 mg/dL (0.5-1.5); Estimated Glomerular Filt Rate 111 ml/min; Total Protein* 6.6 g/dL (6.0-8.3)
[2022-08-26 08:42] LABS: Alanine Aminotransferase* 28 U/L (4-35); Alkaline Phosphatase* 90 U/L (40-150); Blood Urea Nitrogen* 8 mg/dL (5-24); Glucose* 128 mg/dL (60-115)
[2022-08-26] MEDS: ONDANSETRON 2 MG/ML inj 8 MG IVP (09:31)
[2022-08-26] MEDS: dexAMETHasone 12 MG in 0.9 % SODIUM CHLORIDE 100 ml 100 ML 400 MG IVPB (09:32)
[2022-08-26] MEDS: FAMOTIDINE 20 MG, diphenhydrAMINE 50 MG in 0.9 % SODIUM CHLORIDE 100 ml 100 ML 309 MG IVPB (10:02)
[2022-09-03 08:15] VITALS: BP 160/93; PULSE 109; RESP 16; TEMP 36.2; O2SAT 98
[2022-09-03 08:29] LABS: Basophils Percent Auto 0.6 % (0.0-3.0); Eosinophils Percent Auto 1.2 % (0.0-7.0); Hematocrit 32.4 % (33.0-51.0); Hemoglobin* 10.7 gm/dL (12.0-16.0); Immature Granulocytes Pct Auto 0.9 %; Lymphocytes Percent Auto 25.2 % (20-44); Mean Corpuscular HGB Conc 33 gm/dL (32-36); Mean Corpuscular Hemoglobin 35 pg (26-34); Mean Corpuscular Volume 106 fL (80-100); Neutrophils Percent Auto 62.1 % (42.0-72.0); Platelet Count* 330 K/uL (140-440); Red Blood Count 3.06 m/uL (4.00-5.20); White Blood Count* 3.41 K/uL (4.50-11.00)
[2022-09-03 08:30] LABS: Slide Review Reflex No
[2022-09-03 08:44] LABS: Albumin* 3.9 g/dL (3.3-5.0); Chloride* 107 mmol/L (96-114)
[2022-09-03 08:45] LABS: Potassium* 3.6 mmol/L (3.6-5.1); Sodium* 139 mmol/L (135-149)
[2022-09-03 08:47] LABS: Alkaline Phosphatase* 96 U/L (40-150); Aspartate Amino Transferase* 20 U/L (12-35); Bilirubin Total* 0.5 mg/dL (0.1-1.5); Blood Urea Nitrogen* 9 mg/dL (5-24); Carbon Dioxide* 24 mmol/L (20-32); Creatinine* 0.6 mg/dL (0.5-1.5); Estimated Glomerular Filt Rate 116 ml/min; Total Protein* 6.4 g/dL (6.0-8.3)
[2022-09-03 08:48] LABS: Alanine Aminotransferase* 26 U/L (4-35); Calcium* 8.9 mg/dL (8.4-10.6); Glucose* 97 mg/dL (60-115)
[2022-09-03] MEDS: ONDANSETRON 2 MG/ML inj 8 MG IVP (09:06)
[2022-09-03 09:14] VITALS: BP 134/86; PULSE 96; O2SAT 100
[2022-09-03] MEDS: dexAMETHasone 12 MG in 0.9 % SODIUM CHLORIDE 100 ml 100 ML 405 MG IVPB (09:25)
[2022-09-03] MEDS: 0.9 % SODIUM CHLORIDE 250 ml IV (09:25)
[2022-09-03] MEDS: SODIUM CHLORIDE 0.9 % (FLUSH) 10 ML SYRINGE IVF (09:26)
[2022-09-03] MEDS: FAMOTIDINE 20 MG, diphenhydrAMINE 50 MG in 0.9 % SODIUM CHLORIDE 100 ml 100 ML 412 MG IVPB (09:46)
[2022-09-10 09:54] LABS: Basophils Percent Auto 0.5 % (0.0-3.0); Eosinophils Percent Auto 2.7 % (0.0-7.0); Hematocrit 33.2 % (33.0-51.0); Hemoglobin* 10.9 gm/dL (12.0-16.0); Immature Granulocytes Pct Auto 1.1 %; Lymphocytes Percent Auto 30.7 % (20-44); Mean Corpuscular HGB Conc 33 gm/dL (32-36); Mean Corpuscular Hemoglobin 35 pg (26-34); Mean Corpuscular Volume 105 fL (80-100); Monocytes Percent Auto 11.2 % (0.0-11.0); Neutrophils Percent Auto 53.8 % (42.0-72.0); Platelet Count* 328 K/uL (140-440); RDW Coefficient of Variation % 13.4 % (11.5-15.5); Red Blood Count 3.16 m/uL (4.00-5.20); White Blood Count* 3.65 K/uL (4.50-11.00)
[2022-09-10 09:55] LABS: Slide Review Reflex No
[2022-09-10 10:29] LABS: Albumin* 3.9 g/dL (3.3-5.0); Chloride* 104 mmol/L (96-114)
[2022-09-10 10:30] LABS: Potassium* 3.7 mmol/L (3.6-5.1); Sodium* 138 mmol/L (135-149)
[2022-09-10 10:32] LABS: Alkaline Phosphatase* 90 U/L (40-150); Aspartate Amino Transferase* 17 U/L (12-35); Bilirubin Total* 0.4 mg/dL (0.1-1.5); Blood Urea Nitrogen* 7 mg/dL (5-24); Carbon Dioxide* 25 mmol/L (20-32); Creatinine* 0.6 mg/dL (0.5-1.5); Estimated Glomerular Filt Rate 116 ml/min; Glucose* 89 mg/dL (60-115); Total Protein* 6.4 g/dL (6.0-8.3)
[2022-09-10 10:33] LABS: Alanine Aminotransferase* 23 U/L (4-35); Calcium* 8.7 mg/dL (8.4-10.6)
[2022-09-10] MEDS: ONDANSETRON 2 MG/ML inj 8 MG IVP (10:58)
[2022-09-10] MEDS: dexAMETHasone 12 MG in 0.9 % SODIUM CHLORIDE 100 ml 100 ML 404 MG IVPB (11:00)
[2022-09-10] MEDS: FAMOTIDINE 20 MG, diphenhydrAMINE 50 MG in 0.9 % SODIUM CHLORIDE 100 ml 100 ML 412 MG IVPB (11:20)
[2022-09-10] MEDS: SODIUM CHLORIDE 0.9 % (FLUSH) 10 ML SYRINGE IVF (13:17)
[2022-09-10] MEDS: HEPARIN 500 UNIT/5 ML SYRINGE IVF (13:17)
[2022-09-17 08:55] LABS: Basophils Percent Auto 0.7 % (0.0-3.0); Eosinophils Percent Auto 1.4 % (0.0-7.0); Hematocrit 35.1 % (33.0-51.0); Hemoglobin* 11.5 gm/dL (12.0-16.0); Immature Granulocytes Pct Auto 0.5 %; Lymphocytes Percent Auto 24.1 % (20-44); Mean Corpuscular HGB Conc 33 gm/dL (32-36); Mean Corpuscular Hemoglobin 34 pg (26-34); Mean Corpuscular Volume 105 fL (80-100); Monocytes Percent Auto 9.4 % (0.0-11.0); Neutrophils Percent Auto 63.9 % (42.0-72.0); Platelet Count* 314 K/uL (140-440); RDW Coefficient of Variation % 13.3 % (11.5-15.5); Red Blood Count 3.34 m/uL (4.00-5.20); White Blood Count* 4.24 K/uL (4.50-11.00)
[2022-09-17 09:04] LABS: Slide Review Reflex No
[2022-09-17 09:11] LABS: Chloride* 104 mmol/L (96-114)
[2022-09-17 09:12] LABS: Potassium* 3.8 mmol/L (3.6-5.1); Sodium* 138 mmol/L (135-149)
[2022-09-17 09:14] LABS: Alanine Aminotransferase* 24 U/L (4-35); Alkaline Phosphatase* 94 U/L (40-150); Aspartate Amino Transferase* 19 U/L (12-35); Bilirubin Total* 0.5 mg/dL (0.1-1.5); Blood Urea Nitrogen* 10 mg/dL (5-24); Carbon Dioxide* 25 mmol/L (20-32); Creatinine* 0.8 mg/dL (0.5-1.5); Estimated Glomerular Filt Rate 95 ml/min; Glucose* 106 mg/dL (60-115); Total Protein* 6.5 g/dL (6.0-8.3)
[2022-09-17 09:15] LABS: Calcium* 8.9 mg/dL (8.4-10.6)
[2022-09-17 09:28] VITALS: BP 182/81; PULSE 106; RESP 16; TEMP 36.6; O2SAT 98
[2022-09-17] MEDS: SODIUM CHLORIDE 0.9 % (FLUSH) 10 ML SYRINGE IVF ×2 (10:03→12:14)
[2022-09-17] MEDS: FAMOTIDINE 20 MG, diphenhydrAMINE 50 MG in 0.9 % SODIUM CHLORIDE 100 ml 100 ML 309 MG IVPB (10:03)
[2022-09-17] MEDS: 0.9 % SODIUM CHLORIDE 250 ml IV (10:03)
[2022-09-17] MEDS: ONDANSETRON 2 MG/ML inj 8 MG IVP (10:04)
[2022-09-17 10:07] VITALS: BP 131/92; PULSE 89
[2022-09-17] MEDS: dexAMETHasone 12 MG in 0.9 % SODIUM CHLORIDE 100 ml 100 ML 400 MG IVPB (10:26)
[2022-09-17] MEDS: HEPARIN 500 UNIT/5 ML SYRINGE IVF (12:14)
[2022-09-24 08:42] VITALS: BP 116/81; RESP 16; TEMP 36.4; O2SAT 94
[2022-09-24 09:07] LABS: Basophils Percent Auto 0.6 % (0.0-3.0); Hematocrit 33.3 % (33.0-51.0); Hemoglobin* 10.8 gm/dL (12.0-16.0); Immature Granulocytes Pct Auto 0.9 %; Lymphocytes Percent Auto 22.6 % (20-44); Mean Corpuscular HGB Conc 32 gm/dL (32-36); Mean Corpuscular Hemoglobin 34 pg (26-34); Mean Corpuscular Volume 103 fL (80-100); Monocytes Percent Auto 9.9 % (0.0-11.0); Platelet Count* 320 K/uL (140-440); RDW Coefficient of Variation % 13.4 % (11.5-15.5); Red Blood Count 3.22 m/uL (4.00-5.20); White Blood Count* 3.45 K/uL (4.50-11.00)
[2022-09-24 09:12] LABS: Slide Review Reflex No
[2022-09-24 09:28] LABS: Albumin* 3.7 g/dL (3.3-5.0); Chloride* 104 mmol/L (96-114); Sodium* 134 mmol/L (135-149)
[2022-09-24 09:29] LABS: Potassium* 3.7 mmol/L (3.6-5.1)
[2022-09-24 09:31] LABS: Alkaline Phosphatase* 93 U/L (40-150); Aspartate Amino Transferase* 22 U/L (12-35); Bilirubin Total* 0.5 mg/dL (0.1-1.5); Carbon Dioxide* 26 mmol/L (20-32); Creatinine* 0.7 mg/dL (0.5-1.5); Estimated Glomerular Filt Rate 111 ml/min; Total Protein* 6.1 g/dL (6.0-8.3)
[2022-09-24 09:32] LABS: Alanine Aminotransferase* 26 U/L (4-35); Blood Urea Nitrogen* 6 mg/dL (5-24); Calcium* 8.9 mg/dL (8.4-10.6); Glucose* 92 mg/dL (60-115)
[2022-09-24] MEDS: dexAMETHasone 12 MG in 0.9 % SODIUM CHLORIDE 100 ml 100 ML 420 MG IVPB (10:14)
[2022-09-24] MEDS: ONDANSETRON 2 MG/ML inj 8 MG IVP (10:14)
[2022-09-24] MEDS: FAMOTIDINE 20 MG, diphenhydrAMINE 50 MG in 0.9 % SODIUM CHLORIDE 100 ml 100 ML 420 MG IVPB (10:34)
[2022-09-30 10:06] LABS: Eosinophils Percent Auto 1.6 % (0.0-7.0); Hematocrit 35.3 % (33.0-51.0); Hemoglobin* 11.6 gm/dL (12.0-16.0); Lymphocytes Percent Auto 27.8 % (20-44); Mean Corpuscular HGB Conc 33 gm/dL (32-36); Mean Corpuscular Hemoglobin 34 pg (26-34); Mean Corpuscular Volume 104 fL (80-100); Monocytes Percent Auto 9.8 % (0.0-11.0); Neutrophils Percent Auto 59.1 % (42.0-72.0); Platelet Count* 331 K/uL (140-440); RDW Coefficient of Variation % 13.3 % (11.5-15.5); White Blood Count* 3.06 K/uL (4.50-11.00)
[2022-09-30 10:07] LABS: Basophils Percent Auto 0.7 % (0.0-3.0)
[2022-09-30 10:08] LABS: Slide Review Reflex No
[2022-09-30 10:22] LABS: Chloride* 104 mmol/L (96-114)
[2022-09-30 10:23] LABS: Potassium* 3.9 mmol/L (3.6-5.1); Sodium* 137 mmol/L (135-149)
[2022-09-30 10:25] LABS: Aspartate Amino Transferase* 22 U/L (12-35); Bilirubin Total* 0.5 mg/dL (0.1-1.5); Carbon Dioxide* 26 mmol/L (20-32); Creatinine* 0.7 mg/dL (0.5-1.5); Est. Creatinine Clearance* 106.69; Estimated Glomerular Filt Rate 111 ml/min; Total Protein* 6.5 g/dL (6.0-8.3)
[2022-09-30 10:26] LABS: Alanine Aminotransferase* 28 U/L (4-35); Alkaline Phosphatase* 80 U/L (40-150); Blood Urea Nitrogen* 10 mg/dL (5-24); Calcium* 8.9 mg/dL (8.4-10.6); Glucose* 106 mg/dL (60-115)
[2022-10-01 09:00] VITALS: BP 130/88; PULSE 106; RESP 18; TEMP 36.3; O2SAT 98
[2022-10-01] MEDS: ONDANSETRON 2 MG/ML inj 8 MG IVP (09:15)
[2022-10-01] MEDS: 0.9 % SODIUM CHLORIDE 250 ml IV (09:16)
[2022-10-01] MEDS: SODIUM CHLORIDE 0.9 % (FLUSH) 10 ML SYRINGE IVF (09:17)
[2022-10-01] MEDS: dexAMETHasone 12 MG in 0.9 % SODIUM CHLORIDE 100 ml 100 ML 404.8 MG IVPB (09:19)
[2022-10-01] MEDS: FAMOTIDINE 20 MG, diphenhydrAMINE 50 MG in 0.9 % SODIUM CHLORIDE 100 ml 100 ML 410 MG IVPB (09:39)
== END 2022-11-02 23:59 | disposition home or self-care (01) ==
LOC: CCIC 09:00
PROVIDERS: Nurse Practitioner Family; PCP Physician Assistant Medical; Referring Provider Physician Assistant Medical; Visit Provider Clinical Nurse Specialist
DX: Z51.11 Encounter for antineoplastic chemotherapy (principal); C50.912 Malignant neoplasm of unspecified site of left female breast; Z17.0 Estrogen receptor positive status [ER+]
CPT/HCPCS: 36415; 36591; 80053; 83735; 84484; 85025; 85379; 96372; 96376; 96377; 96411; 96413; 99203; 99205; 99212; 99214; 99215; J2506; J9000; J9070; J1100; J1200; J1453; J1642; J2405; J2469; J7050; J9267; S0028

== ENCOUNTER 2022-12-05 14:39 | Outpatient (CLI) | payer BC, SELFPAY ==
--- NOTE | 2022-12-05 15:00 | CRLHL7_ITS ---
For Patients: As a result of the Century Cures Act, medical imaging exams and procedure reports are released immediately into your electronic medical record. You may view this report before your referring provider. If you have questions, please contact your health care provider. DXA BONE MINERAL DENSITY STUDY Reason for exam: Malignant neoplasm of unspecified site. Current height (in): 68. Weight (lb): 180. Menopause age: 29. Ethnicity: White. 1. Have you had a previous hip or vertebral fracture? No. 2. Have you had any fractures during your adult life which did not result from significant trauma (e.g., auto accident)? No. 3. Did either of your parents have a hip fracture? No. 4. Do you smoke? No. 5. Have you ever taken Glucocorticoids? No. 6. Do you have rheumatoid arthritis? No. 7. Do you have secondary osteoporosis? No. 8. Do you drink 3 or more alcoholic drinks per day? No. 9. Are you being treated for osteoporosis? No. 10. Have you ever taken any of the following medications: Actonel, Evista, Fosamax, Miacalcin, Reclast, Boniva, Forteo, HRT (i.e., estrogen/hormone therapy), Protelos, Prolia, Vitamin D, Calcium, other ??? please specify. ANSWER: Yes, vitamin D, HRT, and calcium. 11. Do you have any of the following medical conditions: Anorexia or bulimia, asthma or emphysema, end stage renal disease, hyperparathyroidism, any seizure disorders, cancer, inflammatory bowel diseases, hysterectomy, other ??? please specify. ANSWER: Yes, cancer and hysterectomy. 12. What was your maximum height (inches)? 69. 13. Do you perform weight bearing exercise regularly? No. 14. Do you regularly consume dairy products? No. 15. Do you drink caffeinated beverages? Yes. If female: 16. At what age did your period start? 15. 17. Are you premenopausal? Yes. 18. How many full-term pregnancies have you had? 2. 19. Have you ever missed your period for more than 6 months in a row (not including or menopause)? No. TECHNIQUE: Bone mineral density study was performed using the [employer]. FINDINGS: The results of the study expressed as bone mineral density (BMD) are as follows: Lumbar spine L1 to L4: BMD: 0.963 g/cm2. T-score: -0.8. Z-score: -0.5 Neck Left: BMD: 0.652 g/cm2. T-score: -1.8. Z-score: -1.4 Right: BMD: 0.676 g/cm2. T-score: -1.6. Z-score: -1.2 Total Left: BMD: 0.756 g/cm2. T-score: -1.5. Z-score: -1.3 Right: BMD: 0.837 g/cm2. T-score: -0.9. Z-score: -0.7 IMPRESSION: Osteopenia. Donald Bowie M.D. Diagnostic Radiologist [email or web address] HOLDEN/[email or web address] marks/Dictated by: Donald Bowie MD @ 12/05/2022 3:34:00 PM (Electronically Signed)
== END 2022-12-05 14:40 | disposition home or self-care (01) ==
LOC: RAD 14:40
PROVIDERS: PCP Physician Assistant Medical; Visit Provider Internal Medicine Hematology & Oncology
DX: C50.919 Malignant neoplasm of unspecified site of unspecified female breast (principal); M85.88 Other specified disorders of bone density and structure, other site
CPT/HCPCS: 77080

== ENCOUNTER 2023-03-17 08:12 | Emergency (ER) | payer BC, SELFPAY ==
[2023-03-17 08:23] VITALS: BP 117/76; PULSE 77; RESP 16; TEMP 36.4; O2SAT 98; BMI 26.6
--- NOTE | 2023-03-17 08:54 | CRLHL7_ITS ---
For Patients: As a result of the Century Cures Act, medical imaging exams and procedure reports are released immediately into your electronic medical record. You may view this report before your referring provider. If you have questions, please contact your health care provider. INDICATION: Right-sided abdominal pain and history of breast cancer COMPARISON: 06/30/2022 TECHNIQUE: CT of the abdomen and pelvis after the administration of intravenous contrast. Multiplanar axial, coronal, and sagittal reformats were reconstructed. Contrast: 89 mL Isovue 370 intravenously. Oral contrast was not administered. FINDINGS: Lung bases: Normal. Liver: Normal. No masses. Small amount of focal fatty infiltration at the falciform ligament. Normal vasculature. Gallbladder and biliary tree: Normal gallbladder. No biliary duct dilation. Pancreas: Normal. Spleen: Normal. Normal size. Adrenal glands: Normal. No nodules. Kidneys and bladder: Normal size and position. No cyst or mass. There are 2 3-4 mm nonobstructing calculi in the right intrarenal collecting system. No other urinary tract calculi. Very mild bilateral pelviectasis is in a similar pattern compared to prior. Neither ureter is dilated. The urinary bladder is normal. GI: Diverticulosis without diverticulitis. No dilated segments. No abnormal bowel wall thickening or hyperenhancement. Moderate stool burden. The appendix is normal. Vessels: Aorta and major branches, including the mesenteric vessels: Patent. Normal caliber. No atherosclerotic plaques. IVC and tributaries: Normal. Mesenteric and portal veins: Normal. Peritoneum: No free fluid. Lymph nodes: No adenopathy. Pelvis: No pelvic mass. Bones: No fractures. No focal bone lesions. Normal for age. Abdominal wall: Bilateral breast reconstruction with implants. IMPRESSION: 1. Right intrarenal collecting system nephrolithiasis without urinary tract dilatation. 2. Diverticulosis without diverticulitis. Moderate stool burden. Please note that all CT scans at this facility use dose modulation, iterative reconstruction, and/or weight-based dosing when appropriate to reduce radiation dose to as low as reasonably achievable. Dictated by Sylvie Echevarria MD @ 03/17/2023 9:58:45 AM (Electronically Signed)
[2023-03-17] MEDS: 0.9 % SODIUM CHLORIDE 1000 ml 1,000 ML IV (09:14)
[2023-03-17 09:33] LABS: Basophils Percent Auto 0.6 % (0.0-3.0); Eosinophils Percent Auto 1.9 % (0.0-7.0); Hematocrit 37.9 % (33.0-51.0); Hemoglobin* 12.4 gm/dL (12.0-16.0); Lymphocytes Percent Auto 25.4 % (20-44); Mean Corpuscular HGB Conc 33 gm/dL (32-36); Mean Corpuscular Hemoglobin 31 pg (26-34); Mean Corpuscular Volume 95 fL (80-100); Monocytes Percent Auto 8.4 % (0.0-11.0); Neutrophils Percent Auto 62.7 % (42.0-72.0); Platelet Count* 234 K/uL (140-440); RDW Coefficient of Variation % 13.6 % (11.5-15.5); White Blood Count* 3.11 K/uL (4.50-11.00)
[2023-03-17 09:35] LABS: Slide Review Reflex No
[2023-03-17 09:40] LABS: Chloride* 104 mmol/L (96-114)
[2023-03-17 09:41] LABS: Albumin* 4.3 g/dL (3.3-5.0); Sodium* 137 mmol/L (135-149)
[2023-03-17 09:42] LABS: Potassium* 3.8 mmol/L (3.6-5.1)
[2023-03-17 09:44] LABS: Amylase* 61 U/L (18-89); Anion Gap 8 mEq/L (7-15); Aspartate Amino Transferase* 20 U/L (12-35); Bilirubin Total* 0.7 mg/dL (0.1-1.5); Carbon Dioxide* 25 mmol/L (20-32); Creatinine* 0.8 mg/dL (0.5-1.5); Est. Creatinine Clearance* 95.74; Estimated Glomerular Filt Rate 94 ml/min
[2023-03-17 09:45] LABS: Alanine Aminotransferase* 15 U/L (4-35); Alkaline Phosphatase* 103 U/L (40-150); Blood Urea Nitrogen* 12 mg/dL (5-24); Calcium* 8.8 mg/dL (8.4-10.6); Glucose* 91 mg/dL (60-115); Lipase* 34 U/L (23-300)
[2023-03-17 09:47] LABS: C Reactive Protein* 0.6 mg/dL (0.5-1.0)
[2023-03-17 10:18] VITALS: BP 123/81; PULSE 78; RESP 16; O2SAT 100
[2023-03-17 10:29] LABS: Appearance Urine Clear (Clear); Bilirubin Urine Negative (Negative); Blood Urine Negative (Negative); Color Urine Yellow (Yellow); Glucose Urine Negative (Negative); Ketones Urine Negative (Negative); Leukocyte Esterase Urine Negative (Negative); Nitrite Urine Negative (Negative); Protein Urine Negative (Negative); Specific Gravity Urine 1.015 (1.000-1.030); Urobilinogen Urine 0.2 (0.2-1.0)
[2023-03-17 10:47] LABS: RBC Urine 0-2 (0-2); WBC Urine 0-2 (0-5)
[2023-03-17 10:48] LABS: Amorphous Sediment Urine Few; Squamous Epithelial Cell Urine Few (None-Few)
[2023-03-17 10:49] LABS: Bacteria Urine Few
--- NOTE | 2023-03-17 13:28 | ED_ITS ---
HPI - Abdominal Pain General Date Seen: 03/17/23 Chief Complaint: Abdominal Pain Stated Complaint: RLQ abdominal pain Time Seen by Provider: 03/17/23 09:07 Source: patient Mode of arrival: ambulatory Limitations: no limitations History of Present Illness HPI narrative: Patient is a very nice 43-year-old female with the past history of breast cancer presents here with right lower quadrant pain that she has had on off for a few days, seemingly worse improves, not so bad that she can not walk, but does double her over when it is bad. She does have a history of some mild constipation, and wonders if this is playing into a 2. She has no fevers chills her appetite has been good she has not eaten anything today. She does have an appendix, does have a history of a previous hysterectomy, no coughing sore throat, viral type symptoms. She has no redness associated with this no dysuria frequency of urination. Related Data Home Medications Medication Instructions Recorded Confirmed bupropion HCl 150 mg 24 hr tablet, 150 mg PO DAILY 05/06/22 03/17/23 extended release hydroxyzine HCl 10 mg tablet 10 mg PO Q8H PRN 05/06/22 03/17/23 acetaminophen 500 mg tablet 500 mg PO Q6H PRN 02/05/23 02/05/23 (Tylenol Extra Strength) biotin 5,000 mcg-lutein 10 mg tab PO .qd 02/05/23 02/05/23 tablet collagen neocell PO 02/05/23 bupropion HCl 100 mg tablet 100 mg PO BID 03/17/23 03/17/23 hydroxyzine pamoate 25 mg capsule 25 - 50 mg PO Q6H PRN muscle spasm 03/17/23 03/17/23 lorazepam 0.5 mg tablet mg PO 03/17/23 prochlorperazine maleate 10 mg 10 mg PO 3XD PRN nausea/vomiting 03/17/23 03/17/23 tablet Previous Rx's Medication Instructions Recorded anastrozole 1 mg tablet (Arimidex) 1 mg PO QDAY #90 tabs 02/05/23 olaparib 150 mg tablet (Lynparza) 300 mg (2 x 150 mg) PO BID #120 02/05/23 tabs calcium carbonate 600 mg-vitamin 1 tab PO BIDWMEAL #240 tabs 02/17/23 D3 10 mcg (400 unit) chewable tablet (Calcium 600 with Vitamin D3) Allergies Allergy/AdvReac Type Severity Reaction Status Date / Time hydromorphone Allergy Severe Anaphalacti Verified 02/05/23 10:35 c Sulfa (Sulfonamide Allergy Severe throat Verified 02/05/23 10:35 Antibiotics) closes Review of Systems Status of ROS Reports: 10 or more systems reviewed and unremarkable except as noted in History and below PFSH [facility] Medical History Heart burn ?R12 - Heartburn (ICD-10) 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 (ICD-10) Constipation ?K59.00 - Constipation, unspecified (ICD-10) Mucositis ?K12.30 - Oral mucositis (ulcerative), unspecified (ICD-10) Vaginal infection ?N76.0 - Acute vaginitis (ICD-10) Vitamin D deficiency ?E55.9 - Vitamin D deficiency, unspecified (ICD-10) Lichen sclerosus ?L90.0 - Lichen sclerosus et atrophicus (ICD-10) Endometriosis ?N80.9 - Endometriosis, unspecified (ICD-10) Depression ?F32.A - Depression, unspecified (ICD-10) Anxiety ?F41.9 - Anxiety disorder, unspecified (ICD-10) Surgical History S/P laparoscopy ?Z98.890 - Other specified postprocedural states (ICD-10) H/O: hysterectomy ?Z90.710 - Acquired absence of both cervix and uterus (ICD-10) S/P bronchoscopy ?Z98.890 - Other specified postprocedural states (ICD-10) Family History Sister BRCA gene mutation positive Sister No problems noted. Son BRCA gene mutation positive Social History Smoking Status: Former smoker Do you use any of these nicotine containing products: None Second hand tobacco smoke exposure: No How often do you have a drink containing alcohol: 4 or more times a week Alcohol type: wine How many standard drinks containing alcohol do you have on a typical day: 1 or 2 AUDIT-C Alcohol total score: 4 Non-prescribed substance use: denies use Caffeine: Yes (DAILY) Are you using contraception or practicing any form of control: No Exam Narrative: Exam Narrative: She is seen in room 7 she is in no apparent distress very nice lady. Pupils equal round reactive to light there is no scleral icterus redness or TMs are normal oropharynx is normal her neck is supple, no is no adenopathy anterior posterior chains her chest is good air entry bilaterally with no wheezes crackles noted heart sounds no clicks murmurs or gallops, her abdomen shows some [id number] tenderness in the right lower quadrant on palpation. There is no peritoneal signs, no organomegaly is noted her bowel sounds are normal there is no CVA tenderness she moves all extremities independently well, neurologically intact, she has no rashes noted. Const: Vital Signs, click to edit/add: Vital Signs - 24 hr 03/17/23 08:23 03/17/23 10:18 Temperature 97.5 F L Pulse Rate [Pulse Oximeter] 77 78 Respiratory Rate 16 16 Blood Pressure [Ri ght Upper Arm] 117/76 123/81 Pulse Oximetry 98 100 Oxygen Delivery Me thod Room Air Room Air Course Course ED Course: I discussed with her that there is no evidence of appendicitis, laboratory work is otherwise normal. I would favor watching this and using some MiraLax. If she has increasing abdominal pain fevers chills or sweats or other issues. Then re check at that point she was comfortable this plan. Vital Signs Vital signs: Initial Vital Signs Temperature 97.5 F L 03/17/23 08:23 Temperature Source Temporal Artery Scan 03/17/23 08:23 Pulse Rate 77 03/17/23 08:23 Respiratory Rate 16 03/17/23 08:23 Blood Pressure 117/76 03/17/23 08:23 Blood Pressure Mean 89 03/17/23 08:23 Blood Pressure Position Sitting 03/17/23 08:23 Pulse Oximetry 98 03/17/23 08:23 Oxygen Delivery Method Room Air 03/17/23 08:23 Vital Signs Temperature 97.5 F L 03/17/23 08:23 Pulse Rate 77 03/17/23 08:23 Respiratory Rate 16 03/17/23 08:23 Blood Pressure 117/76 03/17/23 08:23 Pulse Oximetry 98 03/17/23 08:23 Oxygen Delivery Method Room Air 03/17/23 08:23 Temperature 97.5 F L 03/17/23 08:23 Pulse Rate 78 03/17/23 10:18 Respiratory Rate 16 03/17/23 10:18 Blood Pressure 123/81 03/17/23 10:18 Pulse Oximetry 100 03/17/23 10:18 Oxygen Delivery Method Room Air 03/17/23 10:18 Medications Administered Medications: Discontinued Medications Generic Name Dose Route Start Last Admin Trade Name Cherry PRN Reason Stop Dose Admin Sodium Chloride 1,000 mls @ 1,000 mls/hr 03/17/23 09:00 03/17/23 10:00 0.9 % Sodium Chloride 1000 Ml IV 03/17/23 09:59 Infused .Q1H SABI Infusion MDM - Abdominal Pain MDM Narrative Medical decision making narrative: During the evaluation of this patient I considered multiple differential diagnosis including life-threatening differentials which are appendicitis, aortic aneurysm, mesenteric ischemia, bowel perforation, ectopic , volvulus and bowel obstruction, other differential diagnosis include but are not limited to inflammatory bowel disease, cholecystitis, pancreatitis, hepatitis, gastritis, GERD, diverticulitis, peptic ulcer disease, pyelonephritis/UTI, renal colic/stone, pelvic inflammatory disease, cervicitis, endometritis, intrauterine , dysfunctional uterine bleeding, ovarian cyst/torsion, spontaneous as well as other etiologies Medical Records Attestation: I reviewed the patient's medical records. Lab Data Attestation: I reviewed the patient's lab results. Labs: Lab Results 03/17/23 03/17/23 Range/Units 08:54 09:10 WBC 3.11 L (4.50-11.00) K/uL RBC 4.00 (4.00-5.20) m/uL Hgb 12.4 (12.0-16.0) gm/dL Hct 37.9 (33.0-51.0) % MCV 95 (80-100) fL MCH 31 (26-34) pg MCHC 33 (32-36) gm/dL RDW Coeff of Philipp 13.6 (11.5-15.5) % Plt Count 234 (140-440) K/uL Neut % (Auto) 62.7 (42.0-72.0) % Lymph % (Auto) 25.4 (20-44) % Park % (Auto) 8.4 (0.0-11.0) % Eos % (Auto) 1.9 (0.0-7.0) % Baso % (Auto) 0.6 (0.0-3.0) % Neut # (Auto) 1.90 (1.7-7.0) K/uL Lymph # (Auto) 0.80 L (0.90-2.90) K/uL Park # (Auto) 0.30 (0.00-0.90) K/UL Eos # (Auto) 0.10 (0.00-0.50) K/uL Baso # (Auto) 0.00 (0.00-0.30) K/uL Abs Immat Gran (auto) 0.00 (0.00-0.30) K/uL Imm/Tot Granulo (auto) 1.0 % Sodium 137 (135-149) mmol/L Potassium 3.8 (3.6-5.1) mmol/L Chloride 104 (96-114) mmol/L Carbon Dioxide 25 (20-32) mmol/L Anion Gap 8 (7-15) mEq/L BUN 12 (5-24) mg/dL Creatinine 0.8 (0.5-1.5) mg/dL Estimated Creat Clear 95.74 Estimated GFR 94 ml/min Glucose 91 (60-115) mg/dL Calcium 8.8 (8.4-10.6) mg/dL Total Bilirubin 0.7 (0.1-1.5) mg/dL Direct Bilirubin 0.0 (0.0-0.5) mg/dL AST 20 (12-35) U/L ALT 15 (4-35) U/L Alkaline Phosphatase 103 (40-150) U/L C-Reactive Protein 0.6 (0.5-1.0) mg/dL Total Protein 7.0 (6.0-8.3) g/dL Albumin 4.3 (3.3-5.0) g/dL Amylase 61 (18-89) U/L Lipase 34 (23-300) U/L Urine Color Yellow (Yellow) Urine Appearance Clear (Clear) Urine pH 8.0 (5.0-8.5) Ur Specific [place] 1.015 (1.000-1.030) Urine Protein Negative (Negative) Urine Glucose (UA) Negative (Negative) Urine Ketones Negative (Negative) Urine Blood Negative (Negative) Urine Nitrite Negative (Negative) Urine Bilirubin Negative (Negative) Urine Urobilinogen 0.2 (0.2-1.0) Ur Leukocyte Esterase Negative (Negative) Urine RBC 0-2 (0-2) Urine WBC 0-2 (0-5) Ur Squamous Epith Cells Few (None-Few) Amorphous Sediment Few A (None) Urine Bacteria Few A (None) Imaging Data CT scan - abdomen: Attestation: I have reviewed the pertinent imaging results. My impression: Review of the CT shows no acute findings. There is some intrarenal nephrolithiasis, but no obstructing lesions. There is evidence of a moderate stool burden. Discharge Plan Discharge Clinical Impression: Abdominal pain Patient Disposition: Home w/ Parent or Adult Condition: Stable Instructions: Abdominal Pain (ED) Additional Instructions: CT scan was really reassuring there is some evidence of some small kidney stones bilaterally but nothing obstructing or causing any problems. There was a moderate stool burden in this may be a bowel type of discomfort such as constipation. I would suggest some MiraLax, 1 cap full with 20 oz of water, take this once a day for the next 3 days to see we can promote evacuation. Return here if increasing abdominal pain fevers chills or other issue. Please give her a copy of the CT scan report. Prescriptions: No Action acetaminophen [Tylenol Extra Strength] 500 mg tablet 500 mg PO Q6H PRN biotin-lutein 5,000 mcg- 10 mg tablet PO .qd collagen neocell PO Patient Comments: 3gm of collagen collagen with hyaluronic acid anastrozole [Arimidex] 1 mg tablet 1 mg PO QDAY Qty: 90 1RF Lynparza 150 mg tablet 300 mg PO BID Qty: 120 0RF hydroxyzine HCl 10 mg tablet 10 mg PO Q8H PRN Patient Comments: TAKE 1 TABLET BY MOUTH EVERY 8 HOURS NEEDED FOR ANXIETY OR ITCHING bupropion HCl 150 mg tablet extended release 24 hr 150 mg PO DAILY bupropion HCl 100 mg tablet 100 mg PO BID lorazepam 0.5 mg tablet PO hydroxyzine pamoate 25 mg capsule 25 - 50 mg PO Q6H PRN (Reason: muscle spasm) prochlorperazine maleate 10 mg tablet 10 mg PO 3XD PRN (Reason: nausea/vomiting) Calcium 600 with Vitamin D3 600 mg-10 mcg (400 unit) tablet,chewable 1 tab PO BIDWMEAL Qty: 240 3RF Follow Up/Referrals: Yaw Flores PA-C [Primary Care Provider] - Stand Alone Forms: [employer] Info Instructions
== END 2023-03-17 10:48 | disposition home or self-care (01) ==
PROVIDERS: Emergency Provider Family Medicine; PCP Physician Assistant Medical
DX: R10.31 Right lower quadrant pain (principal)
CPT/HCPCS: 36415; 74177; 80048; 80076; 81001; 82150; 83690; 85025; 86140; 87086; 99284; J7030; Q9967

== ENCOUNTER 2023-04-23 08:30 | Outpatient (RCR) | payer BC, SELFPAY ==
[2023-02-19 14:43] LABS: Basophils Percent Auto 0.6 % (0.0-3.0); Eosinophils Percent Auto 2.2 % (0.0-7.0); Hematocrit 37.6 % (33.0-51.0); Hemoglobin* 12.1 gm/dL (12.0-16.0); Immature Granulocytes Pct Auto 0.3 %; Lymphocytes Percent Auto 28.4 % (20-44); Mean Corpuscular HGB Conc 32 gm/dL (32-36); Mean Corpuscular Hemoglobin 30 pg (26-34); Mean Corpuscular Volume 93 fL (80-100); Monocytes Percent Auto 9.2 % (0.0-11.0); Neutrophils Percent Auto 59.3 % (42.0-72.0); Platelet Count* 306 K/uL (140-440); RDW Coefficient of Variation % 12.8 % (11.5-15.5); Red Blood Count 4.04 m/uL (4.00-5.20); White Blood Count* 3.59 K/uL (4.50-11.00)
[2023-02-19 14:56] LABS: Slide Review Reflex No
[2023-02-19 14:59] LABS: Albumin* 3.9 g/dL (3.3-5.0); Chloride* 105 mmol/L (96-114); Sodium* 139 mmol/L (135-149)
[2023-02-19 15:00] LABS: Potassium* 3.3 mmol/L (3.6-5.1)
[2023-02-19 15:02] LABS: Alanine Aminotransferase* 19 U/L (4-35); Alkaline Phosphatase* 113 U/L (40-150); Anion Gap 6 mEq/L (7-15); Aspartate Amino Transferase* 18 U/L (12-35); Bilirubin Total* 0.2 mg/dL (0.1-1.5); Blood Urea Nitrogen* 10 mg/dL (5-24); Carbon Dioxide* 28 mmol/L (20-32); Creatinine* 0.8 mg/dL (0.5-1.5); Estimated Glomerular Filt Rate 94 ml/min; Glucose* 117 mg/dL (60-115); Total Protein* 6.6 g/dL (6.0-8.3)
[2023-02-19 15:03] LABS: Calcium* 8.6 mg/dL (8.4-10.6)
[2023-03-26 11:04] LABS: Basophils Percent Auto 0.6 % (0.0-3.0); Eosinophils Percent Auto 0.9 % (0.0-7.0); Hematocrit 38.3 % (33.0-51.0); Hemoglobin* 12.5 gm/dL (12.0-16.0); Lymphocytes Percent Auto 30.6 % (20-44); Mean Corpuscular HGB Conc 33 gm/dL (32-36); Mean Corpuscular Hemoglobin 31 pg (26-34); Mean Corpuscular Volume 96 fL (80-100); Monocytes Percent Auto 7.7 % (0.0-11.0); Neutrophils Percent Auto 60.2 % (42.0-72.0); Platelet Count* 242 K/uL (140-440); RDW Coefficient of Variation % 14.4 % (11.5-15.5); White Blood Count* 3.24 K/uL (4.50-11.00)
[2023-03-26 11:05] LABS: Slide Review Reflex No
[2023-03-26 11:28] LABS: Albumin* 4.4 g/dL (3.3-5.0); Chloride* 101 mmol/L (96-114); Potassium* 4.2 mmol/L (3.6-5.1); Sodium* 137 mmol/L (135-149)
[2023-03-26 11:30] LABS: Creatinine* 0.8 mg/dL (0.5-1.5); Estimated Glomerular Filt Rate 94 ml/min
[2023-03-26 11:31] LABS: Alanine Aminotransferase* 24 U/L (4-35); Alkaline Phosphatase* 95 U/L (40-150); Anion Gap 8 mEq/L (7-15); Aspartate Amino Transferase* 23 U/L (12-35); Bilirubin Total* 0.6 mg/dL (0.1-1.5); Blood Urea Nitrogen* 13 mg/dL (5-24); Calcium* 9.3 mg/dL (8.4-10.6); Carbon Dioxide* 28 mmol/L (20-32); Glucose* 88 mg/dL (60-115)
[2023-04-23 09:16] LABS: Basophils Percent Auto 0.7 % (0.0-3.0); Hematocrit 39.6 % (33.0-51.0); Lymphocytes Percent Auto 28.5 % (20-44); Mean Corpuscular HGB Conc 33 gm/dL (32-36); Mean Corpuscular Hemoglobin 33 pg (26-34); Mean Corpuscular Volume 100 fL (80-100); Monocytes Percent Auto 7.3 % (0.0-11.0); Neutrophils Percent Auto 61.5 % (42.0-72.0); Platelet Count* 269 K/uL (140-440); RDW Coefficient of Variation % 16.2 % (11.5-15.5); Red Blood Count 3.97 m/uL (4.00-5.20); White Blood Count* 3.02 K/uL (4.50-11.00)
[2023-04-23 09:30] LABS: Slide Review Reflex No
[2023-04-23 09:41] LABS: Albumin* 4.5 g/dL (3.3-5.0)
[2023-04-23 09:42] LABS: Chloride* 106 mmol/L (96-114); Potassium* 4.2 mmol/L (3.6-5.1); Sodium* 140 mmol/L (135-149)
[2023-04-23 09:44] LABS: Anion Gap 7 mEq/L (7-15); Aspartate Amino Transferase* 19 U/L (12-35); Bilirubin Total* 0.6 mg/dL (0.1-1.5); Carbon Dioxide* 27 mmol/L (20-32); Creatinine* 0.8 mg/dL (0.5-1.5); Estimated Glomerular Filt Rate 94 ml/min; Total Protein* 7.3 g/dL (6.0-8.3)
[2023-04-23 09:45] LABS: Alanine Aminotransferase* 19 U/L (4-35); Alkaline Phosphatase* 109 U/L (40-150); Blood Urea Nitrogen* 11 mg/dL (5-24); Glucose* 78 mg/dL (60-115)
== END 2023-05-17 23:59 | disposition home or self-care (01) ==
LOC: CCIC 08:30
PROVIDERS: PCP Physician Assistant Medical; Referring Provider Physician Assistant Medical; Visit Provider Internal Medicine Hematology & Oncology
DX: C50.412 Malignant neoplasm of upper-outer quadrant of left female breast (principal); Z17.0 Estrogen receptor positive status [ER+]; M85.80 Other specified disorders of bone density and structure, unspecified site; Z79.811 Long term (current) use of aromatase inhibitors; Z90.13 Acquired absence of bilateral breasts and nipples; L90.0 Lichen sclerosus et atrophicus; M79.10 Myalgia, unspecified site
CPT/HCPCS: 36415; 80053; 85025; 99212; 99213; 99214; 99215; G0463

== ENCOUNTER 2023-09-04 11:54 | Emergency (ER) | payer BC, SELFPAY ==
[2023-09-04 12:02] VITALS: BP 137/96; PULSE 83; RESP 18; TEMP 36.4; O2SAT 100; BMI 27.3
--- NOTE | 2023-09-04 12:19 | ED_ITS ---
HPI - General Adult General Time Seen by Provider: 12:13 Date Seen: 09/04/23 Chief complaint: Unspecified Complaint, Adult Stated complaint: Food lodged in throat Time Seen by Provider: 09/04/23 12:13 Source: patient and RN notes reviewed Mode of arrival: ambulatory Limitations: no limitations History of Present Illness HPI narrative: Can this 43-year-old female is coming in with sense of food stuck. It started last night after eating chicken noodle soup. She feels it on the left side of the upper throat/neck area. She points inside by the left tonsillar area but maybe a little further down. No difficulty breathing. It is not food stuck in the esophagus. She has been drinking fluids, tried warm water, tried drinking a lot of fluids. No significant pain. This is driving her nuts. She did just have fat grafting done as part of reconstructive surgery after breast cancer and double mastectomies. She states her looked and could not see anything. If she turns her head towards the right, can feel it more in that left upper neck area/throat. Related Data Home Medications ?Medication ?Instructions ?Recorded ?Confirmed acetaminophen 500 mg tablet 500 mg PO Q6H PRN 02/05/23 08/21/23 (Tylenol Extra Strength) biotin 5,000 mcg-lutein 10 mg tab PO .qd 02/05/23 08/21/23 tablet collagen neocell PO 02/05/23 08/21/23 lorazepam 0.5 mg tablet mg PO 03/17/23 08/21/23 prochlorperazine maleate 10 mg 10 mg PO 3XD PRN nausea/vomiting 03/17/23 08/21/23 tablet hydroxyzine HCl 10 mg tablet 10 mg PO Q8H 03/26/23 08/21/23 Previous Rx's ?Medication ?Instructions ?Recorded calcium carbonate 600 mg-vitamin 1 tab PO BIDWMEAL #240 tabs 02/17/23 D3 10 mcg (400 unit) chewable tablet (Calcium 600 with Vitamin D3) bimatoprost 0.03 % drops with 1 applic topical QDAY #5 mL 04/17/23 applicator, eyelash base (Latisse) olaparib 150 mg tablet (Lynparza) 300 mg (2 x 150 mg) PO BID #120 07/16/23 tabs anastrozole 1 mg tablet (Arimidex) 1 mg PO QDAY #90 tabs 08/11/23 bupropion HCl 300 mg 24 hr tablet, 300 mg PO QAM #90 tabs 08/21/23 extended release Allergies Allergy/AdvReac Type Severity Reaction Status Date / Time hydromorphone Allergy Severe Anaphalacti Verified 08/21/23 09:12 c Sulfa (Sulfonamide Allergy Severe throat Verified 08/21/23 09:12 Antibiotics) closes Review of Systems Narrative: As per HPI. 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 (ICD-10) Constipation ?K59.00 - Constipation, unspecified (ICD-10) Mucositis ?K12.30 - Oral mucositis (ulcerative), unspecified (ICD-10) Vaginal infection ?N76.0 - Acute vaginitis (ICD-10) Vitamin D deficiency ?E55.9 - Vitamin D deficiency, unspecified (ICD-10) Lichen sclerosus ?L90.0 - Lichen sclerosus et atrophicus (ICD-10) Endometriosis ?N80.9 - Endometriosis, unspecified (ICD-10) Depression ?F32.A - Depression, unspecified (ICD-10) Anxiety ?F41.9 - Anxiety disorder, unspecified (ICD-10) Surgical History S/P laparoscopy ?Z98.890 - Other specified postprocedural states (ICD-10) H/O: hysterectomy ?Z90.710 - Acquired absence of both cervix and uterus (ICD-10) S/P bronchoscopy ?Z98.890 - Other specified postprocedural states (ICD-10) Family History Sister BRCA gene mutation positive Sister No problems noted. Son BRCA gene mutation positive Social History Smoking Status: Former smoker Do you use any of these nicotine containing products: None Second hand tobacco smoke exposure: No How often do you have a drink containing alcohol: 4 or more times a week Alcohol type: wine How many standard drinks containing alcohol do you have on a typical day: 1 or 2 AUDIT-C Alcohol total score: 4 Non-prescribed substance use: denies use Caffeine: Yes (DAILY) Are you using contraception or practicing any form of control: No Exam Const: Vital Signs, click to edit/add: Vital Signs - 24 hr 09/04/23 12:02 Temperature 97.6 F Pulse Rate [Left P ulse Oximeter] 83 Respiratory Rate 18 Blood Pressure [Ri ght Upper Arm] 137/96 H Pulse Oximetry 100 Oxygen Delivery Me thod Room Air This 43-year-old female is alert, interactive, no apparent distress. Seen in triage due to the acuity and the full ER. She is ambulatory into the room, breathing easily on room air, speech is normal. Face is atraumatic. Feel no neck masses or adenopathy. Oropharynx reveals normal oral mucosa dentition good repair. Tonsils without any exudates erythema, see no tonsillar crypts. I cannot see any retained foreign body on that left pharyngeal sidewall. Documenting provider has reviewed patient's vital signs: yes Course Course ED Course: Reviewed with patient that I a will try to talk to ENT to see if we can get her in for examination. Consultations Consultation #1: Dr. Sánchez is in [place] today. We are to send her directly there. She is advised to not eat or drink anything per his request EN route. Time: 12:14 Vital Signs Vital signs: Initial Vital Signs Temperature 97.6 F 09/04/23 12:02 Temperature Source Temporal Artery Scan 09/04/23 12:02 Pulse Rate 83 09/04/23 12:02 Pulse Rhythm Regular 09/04/23 12:02 Pulse Strength 3+ Normal 09/04/23 12:02 Respiratory Rate 18 09/04/23 12:02 Blood Pressure 137/96 H 09/04/23 12:02 Blood Pressure Mean 109 H 09/04/23 12:02 Blood Pressure Position Sitting 09/04/23 12:02 Pulse Oximetry 100 09/04/23 12:02 Oxygen Delivery Method Room Air 09/04/23 12:02 Vital Signs Temperature 97.6 F 09/04/23 12:02 Pulse Rate 83 09/04/23 12:02 Respiratory Rate 18 09/04/23 12:02 Blood Pressure 137/96 H 09/04/23 12:02 Pulse Oximetry 100 09/04/23 12:02 Oxygen Delivery Method Room Air 09/04/23 12:02 Temperature 97.6 F 09/04/23 12:02 Pulse Rate 83 09/04/23 12:02 Respiratory Rate 18 09/04/23 12:02 Blood Pressure 137/96 H 09/04/23 12:02 Pulse Oximetry 100 09/04/23 12:02 Oxygen Delivery Method Room Air 09/04/23 12:02 Discharge Plan Discharge Clinical Impression: Foreign body in hypopharynx Qualifiers: Encounter type: initial encounter Qualified Code(s): T17.208A - Unspecified foreign body in pharynx causing other injury, initial encounter Patient Disposition: Home, Self-Care Condition: Stable Additional Instructions: Proceed to ENT clinic in [place] where you will have further evaluation by Dr. Sánchez. He asked that you not eat or drink in the meantime. Prescriptions: No Action acetaminophen [Tylenol Extra Strength] 500 mg tablet 500 mg PO Q6H PRN biotin-lutein 5,000 mcg- 10 mg tablet PO .qd collagen neocell PO Patient Comments: 3gm of collagen collagen with hyaluronic acid bupropion HCl 300 mg tablet extended release 24 hr 300 mg PO QAM Qty: 90 1RF Rx Instructions: Take one tablet once in the morning for depression. hydroxyzine HCl 10 mg tablet 10 mg PO Q8H Patient Comments: TAKE 1 TABLET BY MOUTH EVERY 8 HOURS NEEDED FOR ANXIETY OR ITCHING lorazepam 0.5 mg tablet PO Hold Instructions: na prochlorperazine maleate 10 mg tablet 10 mg PO 3XD PRN (Reason: nausea/vomiting) Calcium 600 with Vitamin D3 600 mg-10 mcg (400 unit) tablet,chewable 1 tab PO BIDWMEAL Qty: 240 3RF bimatoprost [Latisse] 0.03 % drops with applicator 1 applic topical QDAY Qty: 5 3RF Rx Instructions: Place one drop on applicator and apply evenly along the skin of the upper eyelid at base of eyelashes once daily at bedtime; repeat procedure for second eye (use a clean applicator) Lynparza 150 mg tablet 300 mg PO BID Qty: 120 3RF anastrozole [Arimidex] 1 mg tablet 1 mg PO QDAY Qty: 90 3RF Follow Up/Referrals: Yaw Flores PA-C [Primary Care Provider] - Stand Alone Forms: [facility] [place] Info Instructions
== END 2023-09-04 12:31 | disposition home or self-care (01) ==
PROVIDERS: Emergency Provider Family Medicine; PCP Physician Assistant Medical
DX: T17.208A Unspecified foreign body in pharynx causing other injury, initial encounter (principal)
CPT/HCPCS: 99282; 99283

== ENCOUNTER 2023-09-15 12:45 | Outpatient (RCR) | payer BC, SELFPAY ==
[2023-05-22 15:33] LABS: Basophils Percent Auto 0.3 % (0.0-3.0); Eosinophils Percent Auto 0.8 % (0.0-7.0); Hematocrit 39.9 % (33.0-51.0); Hemoglobin* 13.6 gm/dL (12.0-16.0); Immature Granulocytes Pct Auto 0.3 %; Lymphocytes Percent Auto 31.5 % (20-44); Mean Corpuscular HGB Conc 34 gm/dL (32-36); Mean Corpuscular Hemoglobin 34 pg (26-34); Mean Corpuscular Volume 101 fL (80-100); Monocytes Percent Auto 6.5 % (0.0-11.0); Neutrophils Percent Auto 60.6 % (42.0-72.0); Platelet Count* 250 K/uL (140-440); RDW Coefficient of Variation % 15.4 % (11.5-15.5); Red Blood Count 3.96 m/uL (4.00-5.20); White Blood Count* 3.84 K/uL (4.50-11.00)
[2023-05-22 15:37] LABS: Slide Review Reflex No
[2023-05-22 15:54] LABS: Albumin* 4.7 g/dL (3.3-5.0)
[2023-05-22 15:55] LABS: Chloride* 103 mmol/L (96-114); Potassium* 3.7 mmol/L (3.6-5.1); Sodium* 138 mmol/L (135-149)
[2023-05-22 15:57] LABS: Anion Gap 7 mEq/L (7-15); Bilirubin Total* 0.7 mg/dL (0.1-1.5); Carbon Dioxide* 28 mmol/L (20-32); Creatinine* 0.8 mg/dL (0.5-1.5); Estimated Glomerular Filt Rate 94 ml/min
[2023-05-22 15:58] LABS: Alanine Aminotransferase* 15 U/L (4-35); Alkaline Phosphatase* 125 U/L (40-150); Aspartate Amino Transferase* 19 U/L (12-35); Blood Urea Nitrogen* 14 mg/dL (5-24); Calcium* 9.6 mg/dL (8.4-10.6); Glucose* 97 mg/dL (60-115); Total Protein* 7.5 g/dL (6.0-8.3)
--- NOTE | 2023-05-22 16:30 | ONC.NURNOTE ---
Patient informed that her labs are WNL to continue Lynparza 300 mg BID. Patient denies any questions or concerns. She is anxious to get her PET/CT results. I told her that I would reach out to her with results once they are available.
--- NOTE | 2023-05-26 15:40 | ONC.NURNOTE ---
Message left for patient with PET/CT results. Patient informed no evidence of metastatic disease. Patient encouraged to call with questions or concerns.
[2023-06-18 08:59] LABS: Basophils Percent Auto 0.4 % (0.0-3.0); Eosinophils Percent Auto 1.5 % (0.0-7.0); Hematocrit 36.6 % (33.0-51.0); Hemoglobin* 12.3 gm/dL (12.0-16.0); Immature Granulocytes Pct Auto 0.4 %; Lymphocytes Percent Auto 26.2 % (20-44); Mean Corpuscular HGB Conc 34 gm/dL (32-36); Mean Corpuscular Hemoglobin 35 pg (26-34); Mean Corpuscular Volume 106 fL (80-100); Monocytes Percent Auto 7.3 % (0.0-11.0); Neutrophils Percent Auto 64.2 % (42.0-72.0); Platelet Count* 234 K/uL (140-440); RDW Coefficient of Variation % 14.6 % (11.5-15.5); Red Blood Count 3.47 m/uL (4.00-5.20); Slide Review Reflex No; White Blood Count* 2.75 K/uL (4.50-11.00)
[2023-06-18 09:11] LABS: Albumin* 4.2 g/dL (3.3-5.0); Chloride* 108 mmol/L (96-114); Sodium* 140 mmol/L (135-149)
[2023-06-18 09:12] LABS: Potassium* 3.8 mmol/L (3.6-5.1)
[2023-06-18 09:14] LABS: Alanine Aminotransferase* 15 U/L (4-35); Alkaline Phosphatase* 101 U/L (40-150); Anion Gap 7 mEq/L (7-15); Aspartate Amino Transferase* 15 U/L (12-35); Bilirubin Total* 0.6 mg/dL (0.1-1.5); Blood Urea Nitrogen* 12 mg/dL (5-24); Carbon Dioxide* 25 mmol/L (20-32); Creatinine* 0.8 mg/dL (0.5-1.5); Estimated Glomerular Filt Rate 94 ml/min; Total Protein* 6.6 g/dL (6.0-8.3)
[2023-06-18 09:15] LABS: Calcium* 9.1 mg/dL (8.4-10.6); Glucose* 83 mg/dL (60-115)
--- NOTE | 2023-06-18 13:55 | ONC.NURNOTE ---
Patient informed that her lab results are all within parameters to continue Lynparza. Patient is overall doing okay. She is struggling with fatigue and weight gain but otherwise states she is doing good. Patient verbalizes understanding for labs and follow up with Dr. Chaves on 07/16.
--- NOTE | 2023-07-16 15:26 | ONC.NURNOTE ---
Patient sent an email to [facility]: I?m having black squiggly dots in my left eye. I don?t want to google but it?s not going away. It?s been happening for about 2 weeks now.? any issues for me with that? How often is this happening? Consistent Has your vision changed? little blurry Any headaches? yes Do you have an established eye doctor? no Concerns reviewed with Dr. Crisostomo. Patient informed that this is not likely related to her Lynparza, Anastrozole or her breast cancer. Patient was advised to contact her PCP and have an evaluation with an eye doctor. Patient has follow up on 07/20 with DANIELLE Carrera.
[2023-07-21 09:21] LABS: Basophils Percent Auto 0.7 % (0.0-3.0); Eosinophils Percent Auto 1.4 % (0.0-7.0); Hematocrit 38.7 % (33.0-51.0); Hemoglobin* 12.9 gm/dL (12.0-16.0); Immature Granulocytes Pct Auto 0.5 %; Lymphocytes Percent Auto 26.8 % (20-44); Mean Corpuscular HGB Conc 33 gm/dL (32-36); Mean Corpuscular Hemoglobin 36 pg (26-34); Mean Corpuscular Volume 108 fL (80-100); Monocytes Percent Auto 10.5 % (0.0-11.0); Neutrophils Percent Auto 60.1 % (42.0-72.0); Platelet Count* 222 K/uL (140-440); RDW Coefficient of Variation % 13.7 % (11.5-15.5); Red Blood Count 3.57 m/uL (4.00-5.20); White Blood Count* 4.21 K/uL (4.50-11.00)
[2023-07-21 09:24] LABS: Slide Review Reflex No
[2023-07-21 09:37] LABS: Albumin* 4.4 g/dL (3.3-5.0); Chloride* 108 mmol/L (96-114); Potassium* 3.9 mmol/L (3.6-5.1); Sodium* 140 mmol/L (135-149)
[2023-07-21 09:39] LABS: Anion Gap 3 mEq/L (7-15); Bilirubin Total* 0.7 mg/dL (0.1-1.5); Carbon Dioxide* 29 mmol/L (20-32); Creatinine* 0.8 mg/dL (0.5-1.5); Estimated Glomerular Filt Rate 94 ml/min
[2023-07-21 09:40] LABS: Alanine Aminotransferase* 17 U/L (4-35); Alkaline Phosphatase* 109 U/L (40-150); Aspartate Amino Transferase* 20 U/L (12-35); Blood Urea Nitrogen* 10 mg/dL (5-24); Calcium* 9.4 mg/dL (8.4-10.6); Glucose* 73 mg/dL (60-115)
[2023-07-21 11:50] LABS: Thyroid Stimulating Hormone* 0.482 uIU/mL (0.270-4.20)
[2023-07-21 12:10] LABS: Vitamin B12* > 1000 pg/mL (243-894)
[2023-08-19 09:11] LABS: Basophils Percent Auto 0.9 % (0.0-3.0); Eosinophils Percent Auto 2.8 % (0.0-7.0); Hemoglobin* 12.6 gm/dL (12.0-16.0); Immature Granulocytes Pct Auto 0.3 %; Lymphocytes Percent Auto 31.9 % (20-44); Mean Corpuscular HGB Conc 33 gm/dL (32-36); Mean Corpuscular Hemoglobin 36 pg (26-34); Mean Corpuscular Volume 107 fL (80-100); Monocytes Percent Auto 7.5 % (0.0-11.0); Neutrophils Percent Auto 56.6 % (42.0-72.0); Platelet Count* 228 K/uL (140-440); RDW Coefficient of Variation % 13.6 % (11.5-15.5); Red Blood Count 3.54 m/uL (4.00-5.20)
[2023-08-19 09:20] LABS: Slide Review Acceptable Review (Acceptable); Slide Review Reflex Yes
[2023-08-19 09:24] LABS: Chloride* 108 mmol/L (96-114)
[2023-08-19 09:25] LABS: Albumin* 4.2 g/dL (3.3-5.0); Sodium* 140 mmol/L (135-149)
[2023-08-19 09:27] LABS: Anion Gap 3 mEq/L (7-15); Aspartate Amino Transferase* 17 U/L (12-35); Bilirubin Total* 0.6 mg/dL (0.1-1.5); Carbon Dioxide* 29 mmol/L (20-32); Creatinine* 0.8 mg/dL (0.5-1.5); Est. Creatinine Clearance* 92.41; Estimated Glomerular Filt Rate 94 ml/min
[2023-08-19 09:28] LABS: Alanine Aminotransferase* 15 U/L (4-35); Alkaline Phosphatase* 104 U/L (40-150); Blood Urea Nitrogen* 13 mg/dL (5-24); Glucose* 71 mg/dL (60-115); Total Protein* 6.8 g/dL (6.0-8.3)
[2023-08-22 17:01] LABS: Cortisol, Serum 7.4 ug/dL
--- NOTE | 2023-08-25 14:17 | ONC.NURNOTE ---
Addendum entered by Alejandra Martínez 08/29/23 14:41: Call to patient for an updated on her condition. Patient states she is now only needing one nap per day instead of two. She is still sleeping consistently 10 hours per night. Her mood is slightly better. Patient will continue to hold Lynparza and Anastrozole until her 09/07 follow up. Original Note: Patient sent [facility] the following email: Why is everything normal but I?m not? No I slept all weekend. Kept notes and I slept an average of 18 hours a day since I last saw you. Even did it on I slept for four hours after my appointment. This can?t be my everyday. I?m gonna lose it.? I don?t feel that different off the lynparza. Discussed with Dr. Crisostomo. Patient instructed to hold Anastrozole in addition to Lynparza. [facility] will call patient the end of this week for an update on her condition. Patient to have her ECHO this week. Patient also reports that she ran out of her buspirone, so she has been without it for several days. She will start the new Rx today.
--- NOTE | 2023-09-05 12:15 | ONC.NURNOTE ---
Appt with Reanna Mckeon PA-C for pt moved out 1 week. Pt had fat grafting of her breasts this week and is very sore; she notes it is difficult to determine if her fatigue has improved since going of AI and Lynparza. She also is pushing out her Heart Echo ~ 2-3 wks until her breasts are no longer tender.? Additionally, she was seen in ED and then ENT yesterday for strong sensation of food stuck in her throat. She had eaten chicken noodle soup and 1 chip the night before. She had tried eating and drinking many different things to dislodge, but could still feel it going up and down in her throat. Unclear if they recommended for or against the common pop rocks to induce burping it up, but she was hesitant about it with her very sore bells from liposuction. No visualization of foreign body by ED or ENT; discharged to monitor. Pt went home and tried drinking a Coke rapidly, which induced a burp and successfully dislodged the food. She did not visualize the foreign body but rather successfully swallowed it. She says she is 100% better now.? Scheduled for her monthly labs prior to appt with Reanna Mckeon PA-C 09/14.
[2023-09-15 12:58] LABS: Basophils Absolute Auto 0.02 K/uL (0.00-0.30); Basophils Percent Auto 0.3 % (0.0-3.0); Eosinophils Absolute Auto 0.14 K/uL (0.00-0.50); Eosinophils Percent Auto 2.4 % (0.0-7.0); Hematocrit 37.6 % (33.0-51.0); Hemoglobin* 12.3 gm/dL (12.0-16.0); Immature Granulocytes Abs Auto 0.01 K/uL (0.00-0.30); Immature Granulocytes Pct Auto 0.2 %; Lymphocytes Absolute Auto 1.42 K/uL (0.90-2.90); Lymphocytes Percent Auto 24.8 % (20-44); Mean Corpuscular HGB Conc 33 gm/dL (32-36); Mean Corpuscular Hemoglobin 34 pg (26-34); Mean Corpuscular Volume 104 fL (80-100); Monocytes Percent Auto 6.1 % (0.0-11.0); Neutrophils Absolute Auto 3.78 K/uL (1.7-7.0); Neutrophils Percent Auto 66.2 % (42.0-72.0); Platelet Count* 264 K/uL (140-440); RDW Coefficient of Variation % 12.1 % (11.5-15.5); Red Blood Count 3.62 m/uL (4.00-5.20); White Blood Count* 5.72 K/uL (4.50-11.00)
[2023-09-15 12:59] LABS: Slide Review Reflex No
[2023-09-15 13:15] LABS: Albumin* 4.3 g/dL (3.3-5.0); Chloride* 103 mmol/L (96-114); Sodium* 139 mmol/L (135-149)
[2023-09-15 13:16] LABS: Potassium* 3.6 mmol/L (3.6-5.1)
[2023-09-15 13:18] LABS: Alanine Aminotransferase* 18 U/L (4-35); Alkaline Phosphatase* 110 U/L (40-150); Anion Gap 7 mEq/L (7-15); Aspartate Amino Transferase* 19 U/L (12-35); Bilirubin Total* 0.6 mg/dL (0.1-1.5); Blood Urea Nitrogen* 12 mg/dL (5-24); Calcium* 8.7 mg/dL (8.4-10.6); Carbon Dioxide* 29 mmol/L (20-32); Creatinine* 0.7 mg/dL (0.5-1.5); Est. Creatinine Clearance* 105.61; Estimated Glomerular Filt Rate 111 ml/min; Glucose* 92 mg/dL (60-115); Total Protein* 6.5 g/dL (6.0-8.3)
--- NOTE | 2023-09-17 16:02 | ONC.NURNOTE ---
Addendum entered by Alejandra Martínez 09/24/23 10:22: MARY received a call from patients PCP Dawson Augustin at [facility]. I updated her on patients condition and the medication changes we have recently made. Dawson will reach out to patient and offer an appointment to discuss her concerns. Original Note: I spoke at length with patient today. She reports that she feels like she has been waving a white flag but doesn't feel like anyone realizes how significant her concerns are. She denies feeling suicidal and feels safe. She expressed in many different ways how frustrated and angry she is feeling about everything she has had to deal with the past few years. She shares that she is very unhappy with her body image right now and this is impacting her desire to leave her home. She is frustrated with her weight gain and she is unhappy with the results of her breast reconstruction. She does not know who to turn to or who can help her. I allowed patient to share her feelings and validated them. With the patients blessing, I assured her that I would call her PCP office to see how we can work together to help her. At this time, patient understands the risks of being off her breast cancer treatments (Anastrozole and Lynparza). She reports that she needs to get her mental health in check before she can consider restarting them. I told Sylvie that I would check in with her the first part of next week.
--- NOTE | 2023-10-08 14:11 | ONC.NURNOTE ---
Addendum entered by Alejandra Martínez 10/10/23 11:46: Patient states that the available appointments in [place] did not work with her schedule. Patient will have PET/CT on 11/05 here in [place] and follow up with Dr. Crisostomo 11/11. I reminded patient that she still needs to have her ECHO done. I provided the number to radiology scheduling. Original Note: Patient emailed N to request assistance with rescheduling her 10/22 PET/CT. She is going to be out of town now. [facility] rescheduled to 10/09 but patient also cancelled this appointment because she was concerned about fasting/low carb diet restrictions for the 08 of October. Patient is currently scheduled for 11/05. I have faxed a request to [facility] to see if they can get her in sooner, ideally prior to her 10/[address] Crisostomo.
== END 2023-11-18 23:59 | disposition home or self-care (01) ==
LOC: CCIC 12:45
PROVIDERS: Internal Medicine Hematology & Oncology; PCP Physician Assistant Medical; Referring Provider Physician Assistant Medical; Visit Provider Physician Assistant
DX: C50.412 Malignant neoplasm of upper-outer quadrant of left female breast (principal); Z17.0 Estrogen receptor positive status [ER+]; M85.80 Other specified disorders of bone density and structure, unspecified site; R53.83 Other fatigue; F32.A Depression, unspecified; Z79.811 Long term (current) use of aromatase inhibitors; N20.0 Calculus of kidney
CPT/HCPCS: 36415; 78815; 80053; 82533; 82607; 84443; 85025; 85045; 86308; 99214; 99215; G0463; A9552

== ENCOUNTER 2023-10-22 19:41 | Emergency (ER) | payer BC, SELFPAY ==
[2023-10-22 19:47] VITALS: BP 163/100; PULSE 71; RESP 16; TEMP 36.4; O2SAT 100; BMI 26.6
--- NOTE | 2023-10-22 19:54 | CRLHL7_ITS ---
For Patients: As a result of the Century Cures Act, medical imaging exams and procedure reports are released immediately into your electronic medical record. You may view this report before your referring provider. If you have questions, please contact your health care provider. INDICATION: R Abd/Flank pain; hx kidney stones. HX BREAST CANCER. TECHNIQUE: CT abdomen and pelvis without contrast. COMPARISON: None. FINDINGS: Limited evaluation of the intra-abdominal solid organs without IV contrast. Lower chest: Bilateral breast implants. Lungs appear clear. Heart size within normal limits.. Liver: Normal in size and attenuation. No suspicious masses. Gallbladder and bile ducts: No stones or inflammation. No biliary dilatation. Pancreas: Unremarkable. No mass or inflammation. Spleen: Normal in size. No masses. Adrenal glands: Normal in size. No nodules. Kidneys: 6 millimeter stone just proximal to the right UVJ with proximal moderate hydroureteronephrosis. Additional nonobstructing stone measuring approximately 3 millimeters at the inferior pole of the right kidney. Punctate nonobstructing stone at the inferior pole of left kidney. No left hydronephrosis or hydroureter. No renal masses or suspicious cysts. GI tract: No bowel obstruction. Normal appendix. Vasculature: Abdominal aorta is normal in caliber. Lymph nodes: No lymphadenopathy. Peritoneum/Abdominal Wall: Unremarkable. No sign of mass or infiltration. No free air or significant free fluid. Pelvis: Uterus is absent. Bladder is decompressed. Bones: Unremarkable for age. IMPRESSION: 1. 6 millimeter obstructing stone at the distal right ureter just proximal to the right UVJ with proximal moderate hydroureteronephrosis. 2. Nonobstructing renal stones bilaterally. 3. Status post hysterectomy and bilateral mastectomy. Please note that all CT scans at this facility use dose modulation, iterative reconstruction, and/or weight-based dosing when appropriate to reduce radiation dose to as low as reasonably achievable. Dictated by Roula Kowalski MD @ 10/22/2023 8:45:23 PM (Electronically Signed)
--- NOTE | 2023-10-22 19:55 | ED_ITS ---
HPI - General Adult General Chief complaint: Flank Pain Stated complaint: kidney stone Time Seen by Provider: 10/22/23 19:45 History of Present Illness HPI narrative: This 43-year-old female comes in with right flank pain and abdominal pain it began a couple hours prior to arrival. She has a history of kidney stones and feels that this is what is causing her symptoms. She has had some nausea and vomiting. She reports frequency of urine also since the symptoms started. Related Data Home Medications ?Medication ?Instructions ?Recorded ?Confirmed acetaminophen 500 mg tablet 500 mg PO Q6H PRN 02/05/23 09/15/23 (Tylenol Extra Strength) biotin 5,000 mcg-lutein 10 mg tab PO .qd 02/05/23 09/15/23 tablet collagen neocell PO 02/05/23 09/15/23 lorazepam 0.5 mg tablet mg PO 03/17/23 09/15/23 prochlorperazine maleate 10 mg 10 mg PO 3XD PRN nausea/vomiting 03/17/23 09/15/23 tablet hydroxyzine HCl 10 mg tablet 10 mg PO Q8H 03/26/23 09/15/23 Previous Rx's ?Medication ?Instructions ?Recorded calcium carbonate 600 mg-vitamin 1 tab PO BIDWMEAL #240 tabs 02/17/23 D3 10 mcg (400 unit) chewable tablet (Calcium 600 with Vitamin D3) bimatoprost 0.03 % drops with 1 applic topical QDAY #5 mL 04/17/23 applicator, eyelash base (Latisse) olaparib 150 mg tablet (Lynparza) 300 mg (2 x 150 mg) PO BID #120 07/16/23 tabs anastrozole 1 mg tablet (Arimidex) 1 mg PO QDAY #90 tabs 08/11/23 bupropion HCl 300 mg 24 hr tablet, 300 mg PO QAM #90 tabs 08/21/23 extended release Allergies Allergy/AdvReac Type Severity Reaction Status Date / Time hydromorphone Allergy Severe Anaphalacti Verified 09/04/23 13:06 c Sulfa (Sulfonamide Allergy Severe throat Verified 09/04/23 13:06 Antibiotics) closes Review of Systems Status of ROS: Reports: 10 or more systems reviewed and unremarkable except as noted in History and below Narrative: Constitutional: No fevers, no weight gain or loss. Eyes: No discharge. No vision changes. HENT: No congestion, no sore throat, no ear pain. Cardiovascular: No chest pain, no palpitations. Respiratory: No shortness of breath, no wheezes, no cough. Gastrointestinal: No diarrhea. Right-sided flank pain and abdominal pain with associated vomiting. Genitourinary: No dysuria, no hematuria. Musculoskeletal: Normal range of motion. Skin: No rashes, no pruritis. Neurological: No dizziness, weakness, sensory change, speech change. Endo/Heme/Allergies: No bruising or bleeding. No polydipsia. Pysch: no suicidality, no anxiety, no insomnia. All other systems reviewed and are negative. [facility] Medical History Heart burn ?R12 - Heartburn (ICD-10) 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 (ICD-10) Constipation ?K59.00 - Constipation, unspecified (ICD-10) Mucositis ?K12.30 - Oral mucositis (ulcerative), unspecified (ICD-10) Vaginal infection ?N76.0 - Acute vaginitis (ICD-10) Vitamin D deficiency ?E55.9 - Vitamin D deficiency, unspecified (ICD-10) Lichen sclerosus ?L90.0 - Lichen sclerosus et atrophicus (ICD-10) Endometriosis ?N80.9 - Endometriosis, unspecified (ICD-10) Depression ?F32.A - Depression, unspecified (ICD-10) Anxiety ?F41.9 - Anxiety disorder, unspecified (ICD-10) Surgical History S/P laparoscopy ?Z98.890 - Other specified postprocedural states (ICD-10) H/O: hysterectomy ?Z90.710 - Acquired absence of both cervix and uterus (ICD-10) S/P bronchoscopy ?Z98.890 - Other specified postprocedural states (ICD-10) Family History Sister BRCA gene mutation positive Sister No problems noted. Son BRCA gene mutation positive Social History Smoking Status: Former smoker Do you use any of these nicotine containing products: None Second hand tobacco smoke exposure: No How often do you have a drink containing alcohol: 4 or more times a week Alcohol type: wine How many standard drinks containing alcohol do you have on a typical day: 1 or 2 AUDIT-C Alcohol total score: 4 Non-prescribed substance use: denies use Caffeine: Yes (DAILY) Are you using contraception or practicing any form of control: No Exam Narrative: Exam Narrative: Constitutional: Well-developed, well-nourished, no acute distress. HEENT: Normocephalic, atraumatic. Neck: Normal range of motion. Nontender. Supple. Heart: Regular. No murmurs. Normal rate. Intact distal pulses. Lungs: Clear to auscultation. No chest discomfort. No wheezes, rhonchi, or rales. Abdomen: Normal bowel sounds. No rebound tenderness. Pain when percussing over the right flank. Pain radiating into the right lower abdomen. Genitalia: Deferred. Back: No midline tenderness. Normal range of motion. Extremities: Normal range of motion. No injury. Skin: Intact. No rash. Warm. No erythema or pallor. Neurologic: No altered sensation. No weakness. Alert and oriented. Psychiatric: No suicidality. No anxiety or depression. No insomnia. Nursing notes and vitals signs are reviewed. Const: Vital Signs, click to edit/add: Vital Signs - 24 hr 10/22/23 19:47 Temperature 97.6 F Pulse Rate [Pulse Oximeter] 71 Respiratory Rate 16 Blood Pressure [Ri ght Upper Arm] 163/100 H Pulse Oximetry 100 Oxygen Delivery Me thod Room Air Course Vital Signs Vital signs: Initial Vital Signs Temperature 97.6 F 10/22/23 19:47 Temperature Source Temporal Artery Scan 10/22/23 19:47 Pulse Rate 71 10/22/23 19:47 Pulse Rhythm Regular 10/22/23 19:47 Respiratory Rate 16 10/22/23 19:47 Blood Pressure 163/100 H 10/22/23 19:47 Blood Pressure Mean 121 H 10/22/23 19:47 Blood Pressure Position Sitting 10/22/23 19:47 Pulse Oximetry 100 10/22/23 19:47 Oxygen Delivery Method Room Air 10/22/23 19:47 Vital Signs Temperature 97.6 F 10/22/23 19:47 Pulse Rate 71 10/22/23 19:47 Respiratory Rate 16 10/22/23 19:47 Blood Pressure 163/100 H 10/22/23 19:47 Pulse Oximetry 100 10/22/23 19:47 Oxygen Delivery Method Room Air 10/22/23 19:47 Temperature 97.6 F 10/22/23 19:47 Pulse Rate 71 10/22/23 19:47 Respiratory Rate 16 10/22/23 19:47 Blood Pressure 163/100 H 10/22/23 19:47 Pulse Oximetry 100 10/22/23 19:47 Oxygen Delivery Method Room Air 10/22/23 19:47 Medications Administered Medications: Discontinued Medications Generic Name Dose Route Start Last Admin Trade Name Cherry PRN Reason Stop Dose Admin Ketorolac Tromethamine 30 mg 10/22/23 19:54 10/22/23 20:03 Ketorolac 30 Mg/Ml Inj IVP 10/22/23 19:55 30 mg ONCE ONE Administration Morphine Sulfate 4 mg 10/22/23 19:54 10/22/23 20:03 Morphine 10 Mg/Ml Inj IVP 10/22/23 19:55 4 mg ONCE ONE Administration Ondansetron HCl 4 mg 10/22/23 19:54 10/22/23 20:03 Ondansetron 2 Mg/Ml Inj IVP 10/22/23 19:55 4 mg ONCE ONE Administration Medical Decision Making MDM Narrative Medical decision making narrative: An IV was established with the patient received Toradol 30 mg, morphine 4 mg, and Zofran [address] imaging of the abdomen and pelvis is obtained. This brought sufficient relief to the patient's symptoms. CT imaging of her abdomen and pelvis show a 6 mm stone at the right ureterovesical junction. I explained the patient that this is larger than average but there is some consolation that it his made the trach this far. She feels okay to return home and received prescriptions for Toradol, [place], and Zofran. I advised her to return to emergency department if symptoms are persistent or worsening. She may need assistance of a urologist unable to pass the stone. Discharge Plan Discharge Prescriptions: No Action acetaminophen [Tylenol Extra Strength] 500 mg tablet 500 mg PO Q6H PRN biotin-lutein 5,000 mcg- 10 mg tablet PO .qd collagen neocell PO Patient Comments: 3gm of collagen collagen with hyaluronic acid bupropion HCl 300 mg tablet extended release 24 hr 300 mg PO QAM Qty: 90 1RF Rx Instructions: Take one tablet once in the morning for depression. hydroxyzine HCl 10 mg tablet 10 mg PO Q8H Patient Comments: TAKE 1 TABLET BY MOUTH EVERY 8 HOURS NEEDED FOR ANXIETY OR ITCHING lorazepam 0.5 mg tablet PO Hold Instructions: na prochlorperazine maleate 10 mg tablet 10 mg PO 3XD PRN (Reason: nausea/vomiting) Calcium 600 with Vitamin D3 600 mg-10 mcg (400 unit) tablet,chewable 1 tab PO BIDWMEAL Qty: 240 3RF bimatoprost [Latisse] 0.03 % drops with applicator 1 applic topical QDAY Qty: 5 3RF Rx Instructions: Place one drop on applicator and apply evenly along the skin of the upper eyelid at base of eyelashes once daily at bedtime; repeat procedure for second eye (use a clean applicator) Lynparza 150 mg tablet 300 mg PO BID Qty: 120 3RF anastrozole [Arimidex] 1 mg tablet 1 mg PO QDAY Qty: 90 3RF Follow Up/Referrals: Yaw Flores PA-C [Primary Care Provider] -
[2023-10-22] MEDS: MORPHINE 10 MG/ML inj 4 MG IVP (20:03)
[2023-10-22] MEDS: KETOROLAC 30 MG/ML inj IVP (20:03)
[2023-10-22] MEDS: ONDANSETRON 2 MG/ML inj 4 MG IVP (20:03)
[2023-10-22 21:18] LABS: Appearance Urine Clear (Clear); Bilirubin Urine Negative (Negative); Blood Urine Trace-intact (Negative); Color Urine Yellow (Yellow); Glucose Urine Negative (Negative); Ketones Urine Negative (Negative); Leukocyte Esterase Urine Negative (Negative); Nitrite Urine Negative (Negative); Protein Urine Negative (Negative); Urobilinogen Urine 0.2 (0.2-1.0)
[2023-10-22 22:07] LABS: RBC Urine 0-2 (0-2)
[2023-10-22 22:08] LABS: Amorphous Sediment Urine Moderate; Bacteria Urine Few
== END 2023-10-22 21:19 | disposition home or self-care (01) ==
PROVIDERS: Emergency Provider Emergency Medicine Emergency Medical Services; PCP Physician Assistant Medical
DX: N20.1 Calculus of ureter (principal)
CPT/HCPCS: 74176; 81001; 87086; 96374; 96375; 99283; 99284; J1885; J2270; J2405

== ENCOUNTER 2023-11-07 09:03 | Outpatient (CLI) | payer OTHER, SELFPAY | END 2023-11-07 09:04 | disposition home or self-care (01) | LOC: RAD 09:03 | PROVIDERS: PCP Physician Assistant Medical; Visit Provider Physician Assistant | DX: C50.912 Malignant neoplasm of unspecified site of left female breast (principal); Z51.81 Encounter for therapeutic drug level monitoring; Z79.899 Other long term (current) drug therapy | CPT/HCPCS: 93306 ==

== ENCOUNTER 2023-11-20 16:15 | Outpatient (CLI) | payer OTHER, SELFPAY ==
--- NOTE | 2023-11-20 16:30 | PE_ITS ---
[facility] [address] [address] Phone:?[phone] Fax:?[phone] Referring Physician Information: Valerie Mckeon PA-C [address] [address] Phone:?[phone] Fax:?[phone] Patient:Mary Hammond D.O.B:?1980 Sex:?Female Phone:?[phone] [facility] MRN:?[id number] Exam Date:?11/20/2023 EXAM: PET EYES TO THIGHS, CANCER RESTAGING CLINICAL INFORMATION: Breast cancer, restaging. TECHNICAL INFORMATION: Helical acquisition of data was obtained from the orbits to the upper thighs with reconstruction of 3.75 mm thick images at 3.[address] data was used for attenuation correction. PET scanning was performed through the same anatomic range 60 minutes following administration of 12.59 mCi of 18-FDG delivered intravenously. The patient's glucose at the time of the injection was 97 mg/dL. PET, CT and PET/CT fusion images are interpreted using a computer viewing workstation. PET, CT and PET/CT fusion images were archived and saved in the patient's permanent medical record. COMPARISON: PET-CT from 05/22/2023. INTERPRETATION: Head and Neck: There are no abnormal hypermetabolic foci within the head or neck. There is physiologic uptake in the intracranial soft tissues. Chest: There are no abnormal hypermetabolic foci within the chest. Background mediastinal blood pool uptake has a maximum SUV of 2.2. Status post bilateral mastectomy with podiatry professor implants in situ. Left axillary dissection redemonstrated. No lung nodules or masses detected on this free-breathing exam. No lymphadenopathy detected. Abdomen and Pelvis: There are no abnormal hypermetabolic foci within the abdomen or pelvis. Background hepatic parenchymal uptake has a maximum SUV of 2.86. There is physiologic excretion of radiotracer in the urine and bowel. Skeleton, Musculature, and Integument: No abnormal hypermetabolic foci within the skeleton. No diego osteoblastic or osteolytic disease. CONCLUSION: Stable postoperative appearance. No abnormal FDG uptake to indicate active malignancy. Electronically signed on 11/21/2023 12:14:00 PM by Nadeem Brown M.D.
== END 2023-11-20 16:16 | disposition home or self-care (01) ==
LOC: RAD 16:17
PROVIDERS: PCP Physician Assistant Medical; Visit Provider Physician Assistant
DX: C50.412 Malignant neoplasm of upper-outer quadrant of left female breast (principal)
CPT/HCPCS: 78815; A9552

== ENCOUNTER 2024-03-24 12:33 | Emergency (ER) | payer OTHER, SELFPAY ==
[2024-03-24 12:45] VITALS: BP 130/90; PULSE 101; RESP 18; TEMP 36.4; O2SAT 96; BMI 28.5
--- NOTE | 2024-03-24 13:46 | ED.SOB ---
HPI - SOB/Dyspnea General Time Seen by Provider: 13:46 Date Seen: 03/24/24 Chief Complaint: Shortness of Breath/Dyspnea Stated Complaint: difficulty breathing Time Seen by Provider: 03/24/24 13:29 Source: patient, RN notes reviewed and old records reviewed Mode of arrival: ambulatory Limitations: no limitations History of Present Illness HPI Narrative: 44-year-old female with history of breast cancer presents today with shortness of breath. Patient reports about 1 week of feeling like she cannot take a deep breath. Also notes decreased activity tolerance. Denies chest pain, cough, shortness of breath, fever, chills. Denies lower extremity swelling. Feels like her upper abdomen bulges on more when she takes big breath. Feels similar to when she had what sounds like atelectasis after having surgery in the past. Related Data Home Medications ?Medication ?Instructions ?Recorded ?Confirmed acetaminophen 500 mg tablet 500 mg PO Q6H PRN 02/05/23 03/24/24 (Tylenol Extra Strength) biotin 5,000 mcg-lutein 10 mg 2 tab PO .qd 02/05/23 03/24/24 tablet collagen neocell 2 tab PO DAILY 02/05/23 03/24/24 lorazepam 0.5 mg tablet 0.5 mg PO PRN 03/17/23 01/29/24 hydroxyzine HCl 10 mg tablet 10 mg PO Q8H 03/26/23 03/24/24 C-PHENTREXONE PO TID 03/24/24 Previous Rx's ?Medication ?Instructions ?Recorded calcium 600 mg (as carbonate)-vit 1 tab PO BIDWMEAL #240 tabs 02/17/23 D3 10 mcg (400 unit) chewable tablet (Calcium 600 with Vitamin D3) bupropion HCl 300 mg 24 hr tablet, 300 mg PO QAM #90 tabs 08/21/23 extended release albuterol sulfate 90 mcg/actuation 2 inh inhalation Q4H PRN #1 ea 03/24/24 breath activated powder inhaler prednisone 50 mg tablet 50 mg PO DAILY #5 tabs 03/24/24 Allergies Allergy/AdvReac Type Severity Reaction Status Date / Time hydromorphone Allergy Severe Anaphalacti Verified 01/29/24 11:08 c Sulfa (Sulfonamide Allergy Severe throat Verified 01/29/24 11:08 Antibiotics) closes [facility] Medical History (Updated 03/24/24 @ 15:51 by Darrell Stallings MD) Vasomotor symptoms due to menopause ?N95.1 - Menopausal and female climacteric states (ICD-10) Heart burn ?R12 - Heartburn (ICD-10) 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 (ICD-10) Constipation ?K59.00 - Constipation, unspecified (ICD-10) Mucositis ?K12.30 - Oral mucositis (ulcerative), unspecified (ICD-10) Vaginal infection ?N76.0 - Acute vaginitis (ICD-10) Vitamin D deficiency ?E55.9 - Vitamin D deficiency, unspecified (ICD-10) Lichen sclerosus ?L90.0 - Lichen sclerosus et atrophicus (ICD-10) Endometriosis ?N80.9 - Endometriosis, unspecified (ICD-10) Depression ?F32.A - Depression, unspecified (ICD-10) Anxiety ?F41.9 - Anxiety disorder, unspecified (ICD-10) Surgical History S/P laparoscopy ?Z98.890 - Other specified postprocedural states (ICD-10) H/O: hysterectomy ?Z90.710 - Acquired absence of both cervix and uterus (ICD-10) S/P bronchoscopy ?Z98.890 - Other specified postprocedural states (ICD-10) Family History Sister BRCA gene mutation positive Sister No problems noted. Son BRCA gene mutation positive Social History Smoking Status: Former smoker Do you use any of these nicotine containing products: None Second hand tobacco smoke exposure: No How often do you have a drink containing alcohol: 4 or more times a week Alcohol type: wine How many standard drinks containing alcohol do you have on a typical day: 1 or 2 AUDIT-C Alcohol total score: 4 Non-prescribed substance use: denies use Caffeine: Yes (DAILY) Are you using contraception or practicing any form of control: No Exam Narrative: Exam Narrative: General: Well-developed and well-nourished, no acute distress Head: Atraumatic and normocephalic Eyes: Pupils are equal reactive, extraocular motions intact, conjunctiva clear ENT: External nose and ears are normal, posterior pharynx without erythema or exudate Neck: No midline cervical tenderness, full spontaneous range of motion the neck, trachea midline, no adenopathy Heart: Regular rate and rhythm no murmurs or thrills Lungs: Clear to auscultation bilaterally without wheezes or crackles Abdomen: Soft, nontender, nondistended with active bowel sounds Musculoskeletal: No tenderness, deformity, or edema Neurologic: Awake, alert, and oriented x3, no gross focal neurologic deficits, cranial nerves intact as tested Psych: Mood and affect are appropriate Skin: No rashes Const: Vital Signs, click to edit/add: Vital Signs - 24 hr 03/24/24 12:45 03/24/24 13:47 03/24/24 15:00 Temperature 97.5 F L Pulse Rate [Pulse Oximeter] 101 H 90 Respiratory Rate 18 14 18 Blood Pressure [Ri ght Upper Arm] 130/90 H 131/92 H Pulse Oximetry 96 99 94 Oxygen Delivery Me thod Room Air Room Air 03/24/24 15:56 Temperature 98.4 F Pulse Rate [Pulse Oximeter] 102 H Respiratory Rate 18 Blood Pressure [Ri ght Upper Arm] 130/80 Pulse Oximetry 99 Oxygen Delivery Me thod Room Air Course Course ED Course: Reviewed most recent oncology note from January 2024, at that time patient was not on chemotherapy and at that time elected to stay off therapy. Also reviewed CT scan from January 2014 which showed possible atypical sarcoid, however CT PE study from April 2022 did not demonstrate any evidence of sarcoid. Patient presents today with feeling like she can not get a deep breath in which is been going on for about a week, also notes decreased exercise tolerance with fatigue and diaphoresis. Denies chest pain. On exam here, awake alert, finally stable, no hypoxia, borderline tachycardia. Lungs are clear bilaterally, no abdominal pain, lower extremity swelling. Consider atelectasis, bronchitis, pneumonia although no crackles no coughing no fever, also high risk for pulmonary embolism. CT PE study is ordered along with labs and DuoNeb. Reevaluation(s) Time of Reevaluation #1: 15:01 Reevaluation #1: Labs independently interpreted by me with mild leukopenia, normal venous gas, negative troponin. EKG is reassuring. Patient seen by respiratory therapy, some improvement after DuoNeb but much better after PEP therapy. Suspect some mucous plugging or atelectasis. CT is pending, anticipate discharge. EKG independently interpreted by me performed at 2:27 p.m. demonstrates sinus rhythm rate 86, no acute ST elevations or depressions, prolonged QT at 481, normal MI 140. No prior for comparison Time of Reevaluation #2: 15:28 Reevaluation #2: CT PE independently interpreted by me negative for acute central pulmonary embolism, negative for infiltrate or effusion, no pericardial effusion. Anticipate discharge with inhaler, continued PEP therapy, and prednisone burst. Vital Signs Vital signs: Initial Vital Signs Temperature 97.5 F L 03/24/24 12:45 Temperature Source Temporal Artery Scan 03/24/24 12:45 Pulse Rate 101 H 03/24/24 12:45 Respiratory Rate 18 03/24/24 12:45 Blood Pressure 130/90 H 03/24/24 12:45 Blood Pressure Mean 103 03/24/24 12:45 Blood Pressure Position Sitting 03/24/24 12:45 Pulse Oximetry 96 03/24/24 12:45 Oxygen Delivery Method Room Air 03/24/24 12:45 Vital Signs Temperature 97.5 F L 03/24/24 12:45 Pulse Rate 101 H 03/24/24 12:45 Respiratory Rate 18 03/24/24 12:45 Blood Pressure 130/90 H 03/24/24 12:45 Pulse Oximetry 96 03/24/24 12:45 Oxygen Delivery Method Room Air 03/24/24 12:45 Temperature 98.4 F 03/24/24 15:56 Pulse Rate 102 H 03/24/24 15:56 Respiratory Rate 18 03/24/24 15:56 Blood Pressure 130/80 03/24/24 15:56 Pulse Oximetry 99 03/24/24 15:56 Oxygen Delivery Method Room Air 03/24/24 15:56 Medications Administered Medications: Discontinued Medications Generic Name Dose Route Start Last Admin Trade Name Freq PRN Reason Stop Dose Admin Albuterol/Ipratropium 1 neb 03/24/24 14:08 03/24/24 14:44 Iprat-Albut 0.5-2.5 Mg/3 Ml Neb IH 03/24/24 14:09 1 neb ONCE ONE Administration MDM - SOB/Dyspnea Lab Data Labs: Lab Results 03/24/24 03/24/24 Range/Units 14:09 14:35 WBC 3.89 L (4.50-11.00) K/uL RBC 4.56 (4.00-5.20) m/uL Hgb 13.9 (12.0-16.0) gm/dL Hct 42.4 (33.0-51.0) % MCV 93 (80-100) fL MCH 31 (26-34) pg MCHC 33 (32-36) gm/dL RDW Coeff of Philipp 11.6 (11.5-15.5) % Plt Count 204 (140-440) K/uL Neut % (Auto) 51.9 (42.0-72.0) % Lymph % (Auto) 36.2 (20-44) % [place] % (Auto) 11.3 H (0.0-11.0) % Eos % (Auto) 0.0 (0.0-7.0) % Baso % (Auto) 0.3 (0.0-3.0) % Neut # (Auto) 2.00 (1.7-7.0) K/uL Lymph # (Auto) 1.40 (0.90-2.90) K/uL [place] # (Auto) 0.40 (0.00-0.90) K/UL Eos # (Auto) 0.00 (0.00-0.50) K/uL Baso # (Auto) 0.00 (0.00-0.30) K/uL Abs Immat Gran (auto) 0.00 (0.00-0.30) K/uL Imm/Tot Granulo (auto) 0.3 % VBG pH 7.401 (7.32-7.43) VBG pCO2 44 (40-50) mmHG VBG pO2 30.5 (25-47) mmHG VBG HCO3 28 (21-28) mmol/L Sodium 139 (135-149) mmol/L Potassium 4.3 (3.6-5.1) mmol/L Chloride 105 (96-114) mmol/L Carbon Dioxide 25 (20-32) mmol/L Anion Gap 9 (7-15) mEq/L BUN 7 (5-24) mg/dL Creatinine 0.7 (0.5-1.5) mg/dL Estimated Creat Clear 108.30 Estimated GFR 110 ml/min Glucose 93 (60-115) mg/dL Calcium 9.0 (8.4-10.6) mg/dL Magnesium 2.1 (1.5-2.6) mg/dL NT-Pro-B Natriuret Pep 70 pg/mL POC Troponin I 0.00 L (0.01-0.04) ng/ml Discharge Plan Discharge Clinical Impression: Acute dyspnea Patient Disposition: Home, Self-Care Condition: Stable Instructions: Dyspnea (ED) Additional Instructions: Use PEP valve 4 times a day while awake Use albuterol inhaler every 2-3 hours as needed for shortness of breath Take prednisone as prescribed Follow-up with your primary care doctor in 5-7 days Activity Level: Activity as Tolerated Discharge Diet: Regular Prescriptions: New albuterol sulfate 90 mcg/actuation aerosol powdr breath activated 2 inh inhalation Q4H PRNQty: 1 0RF prednisone 50 mg tablet 50 mg PO DAILY Qty: 5 0RF No Action acetaminophen [Tylenol Extra Strength] 500 mg tablet 500 mg PO Q6H PRN biotin-lutein 5,000 mcg- 10 mg tablet 2 tab PO .qd collagen neocell 2 tab PO DAILY Patient Comments: 3gm of collagen collagen with hyaluronic acid bupropion HCl 300 mg tablet extended release 24 hr 300 mg PO QAM Qty: 90 1RF Rx Instructions: Take one tablet once in the morning for depression. C-PHENTREXONE PO TID hydroxyzine HCl 10 mg tablet 10 mg PO Q8H Patient Comments: TAKE 1 TABLET BY MOUTH EVERY 8 HOURS NEEDED FOR ANXIETY OR ITCHING lorazepam 0.5 mg tablet 0.5 mg PO PRN Calcium 600 with Vitamin D3 600 mg-10 mcg (400 unit) tablet,chewable 1 tab PO BIDWMEAL Qty: 240 3RF Follow Up/Referrals: Yaw Flores PA-C [Primary Care Provider] - Stand Alone Forms: [employer] Info Instructions
[2024-03-24 13:47] VITALS: BP 131/92; PULSE 90; RESP 14; O2SAT 99
--- NOTE | 2024-03-24 14:08 | CRLHL7_ITS ---
For Patients: As a result of the Century Cures Act, medical imaging exams and procedure reports are released immediately into your electronic medical record. You may view this report before your referring provider. If you have questions, please contact your health care provider. INDICATION: Dyspnea. History of breast cancer. COMPARISON: None available. TECHNIQUE: CT pulmonary angiography with 95 cc of Isovue 370 intravenous contrast. Please note that all CT scans at this facility use dose modulation, iterative reconstruction, and/or weight-based dosing when appropriate to reduce radiation dose to as low as reasonably achievable. FINDINGS: THORAX Pulmonary Arterial Vasculature: Opacification of the pulmonary arterial tree is adequate for assessment of pulmonary embolism. No intraluminal pulmonary arterial filling defect is identified to indicate a pulmonary embolism. Visualized Lower Neck: No lower cervical adenopathy. Lungs: No significant pulmonary findings. Pleura: No pleural effusion. No pneumothorax. Mediastinum: Thoracic aorta and pulmonary trunk are normal in caliber. Heart and pericardium are without significant findings. Trachea and esophagus are normal in appearance. No mediastinal lymphadenopathy. ABDOMEN Visualized Upper Abdomen: No significant findings. SKELETON AND BODY WALL Bilateral breast implants without complication. Left axillary lymph node dissection. IMPRESSION: No evidence of pulmonary embolism or other acute cardiopulmonary process to explain the history of dyspnea. Please note that all CT scans at this facility use dose modulation, iterative reconstruction, and/or weight-based dosing when appropriate to reduce radiation dose to as low as reasonably achievable. Dictated by Christian López MD @ 03/24/2024 3:35:05 PM (Electronically Signed)
[2024-03-24] MEDS: IPRAT-ALBUT 0.5-2.5 MG/3 ML NEB 1 NEB IH (14:44)
[2024-03-24 14:49] LABS: Basophils Percent Auto 0.3 % (0.0-3.0); Hematocrit 42.4 % (33.0-51.0); Hemoglobin* 13.9 gm/dL (12.0-16.0); Immature Granulocytes Pct Auto 0.3 %; Lymphocytes Percent Auto 36.2 % (20-44); Mean Corpuscular HGB Conc 33 gm/dL (32-36); Mean Corpuscular Hemoglobin 31 pg (26-34); Mean Corpuscular Volume 93 fL (80-100); Monocytes Percent Auto 11.3 % (0.0-11.0); Neutrophils Percent Auto 51.9 % (42.0-72.0); Platelet Count* 204 K/uL (140-440); RDW Coefficient of Variation % 11.6 % (11.5-15.5); Red Blood Count 4.56 m/uL (4.00-5.20); White Blood Count* 3.89 K/uL (4.50-11.00)
[2024-03-24 14:52] LABS: Slide Review Reflex No
[2024-03-24 14:54] LABS: HCO3 VBG 28 mmol/L (21-28); PCO2 VBG 44 mmHG (40-50); PO2 VBG 30.5 mmHG (25-47); pH VBG 7.401 (7.32-7.43)
[2024-03-24 15:00] VITALS: RESP 18; O2SAT 94
--- NOTE | 2024-03-24 15:02 | RESP.RT ---
Patient lying in bed, HOB up. BBS diminished all lung field, more prominent LLL. DuoNeb given with small volume nebulizer, mouth piece, and Med/Air at 7 Lpm, patient used tx well, improved breath sounds, PEP with Aerobika settings #5. Patient has good effort exhalation with good chest shake. Had patient feel chest shake to understand use of Aerobika. Patient understands and states verbally. BBS post treatment improved air movement all [place] with slightly less in LLL.
[2024-03-24 15:12] LABS: Chloride* 105 mmol/L (96-114); Potassium* 4.3 mmol/L (3.6-5.1); Sodium* 139 mmol/L (135-149)
[2024-03-24 15:15] LABS: Anion Gap 9 mEq/L (7-15); Blood Urea Nitrogen* 7 mg/dL (5-24); Carbon Dioxide* 25 mmol/L (20-32); Creatinine* 0.7 mg/dL (0.5-1.5); Estimated Glomerular Filt Rate 110 ml/min; Glucose* 93 mg/dL (60-115)
[2024-03-24 15:16] LABS: Magnesium* 2.1 mg/dL (1.5-2.6)
[2024-03-24 15:49] LABS: NT Pro B Type NatriureticPept* 70 pg/mL
[2024-03-24 15:56] VITALS: BP 130/80; PULSE 102; RESP 18; TEMP 36.9; O2SAT 99
== END 2024-03-24 16:14 | disposition home or self-care (01) ==
PROVIDERS: Emergency Provider Family Medicine; PCP Physician Assistant Medical
DX: R06.00 Dyspnea, unspecified (principal)
CPT/HCPCS: 36415; 71275; 80048; 82803; 83735; 83880; 84484; 85025; 93005; 94640; 94664; 99284; 99285; Q9967

== ENCOUNTER 2024-05-27 09:10 | Outpatient (RCR) | payer OTHER, SELFPAY | END 2024-06-01 23:59 | disposition home or self-care (01) | LOC: CCIC 09:10 | PROVIDERS: PCP Physician Assistant Medical; Referring Provider Physician Assistant Medical; Visit Provider Physician Assistant | DX: C50.412 Malignant neoplasm of upper-outer quadrant of left female breast (principal); Z17.0 Estrogen receptor positive status [ER+] | CPT/HCPCS: 99213; 99214; G0463 ==

== ENCOUNTER 2024-09-29 10:51 | Emergency (ER) | payer OTHER, SELFPAY ==
--- OUTSIDE RECORDS SUMMARY | 2024-09-29 10:53 | XMS_ITS | Clinical Summary ---
Author Organization [facility] Address [address] [place] [address] Care Team Providers Care Gravel Truck Driver Name Role Phone Unavailable Primary Care Provider Unavailabl e Source Comments Patient records contain information from all sites at [facility]. For routine questions regarding patient records, call [phone] during business hours, M-F 8:00 AM - 5:00 PM Central Time. 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 3 Active amoxicillin (AMOXIL) 500 mg tablet Take 500 mg by mouth 3 (three) times a day. for 5 days 3 Active cholecalciferol (VITAMIN D3) 125 mcg (5,000 Unit) capsule 5,000 Units. 1 Active hydrOXYzine (ATARAX) 10 mg tablet 10 mg. 1 Active hydrOXYzine (VISTARIL) 25 mg capsule TAKE 1 -2 CAPSULES BY MOUTH EVERY 6 HOURS NEEDED FOR MUSCLE SPASM. 3 Active ibuprofen (MOTRIN) 600 mg tablet TAKE 1 TABLET BY MOUTH EVERY 6 TO 8 HOURS NEEDED 3 Active methocarbamoL (ROBAXIN) 500 mg tablet Take 500 mg by mouth every 6 (six) hours as needed. 3 Active mometasone (ELOCON) 0.1 % cream Apply 1 Application topically 2 (two) times a day. Apply to treatment field twice daily. 45 g 2 3 Active Active Problems Problem Noted Date Diagnosed Date Malignant Neoplasm Of Breast Upper Outer Quadrant Female Left 12/11/2022 Cancer Staging:Clinical stage from 04/19/2022:Stage IIA(cT2, cN1(f), cM0, G1, ER+, RI+, HER2-) - Unsigned Pathologic stage from 11/05/2022:No Stage Recommended(ypT2, pN1a, cM0, G1, ER+, RI+, HER2-) - Unsigned Family History Medical History Relation Name Comments Uterine cancer Aunt 1 Breast cancer Aunt 2 BRCA2 Positive Father Squamous cell carcinoma Father skin Lung cancer Maternal Grandfather smoker Basal cell carcinoma of skin Mother BRCA2 Positive Sister 1 BRCA2 Positive Sister 2 BRCA2 Positive Son Esophageal cancer Uncle smoker Relation Name Status Comments Aunt 1 Aunt 2 Father Maternal Grandfather Mother Sister 1 Sister 2 Son Uncle Social History Tobacco Use Types Packs/Day Years Used Date Smoking Tobacco: Former Cigarettes Q uit: 2009 Smokeless Tobacco: Never Alcohol Use Standard Drinks/Week Comments Yes 3 (1 standard drink = 0.6 oz pur e alcohol) Hunger Vital Sign Answer Date Recorded Within the past 12 months, y ou worried that your food would run out before you got the money to buy more. Never true 12/10/19 23 Within the past 12 months, t he food you bought just didn't last and you didn't have money to get more. Never true 12/09/2022 PRAPARE - Transportation Answer Date Re corded In the past 12 months, has l ack of transportation kept you from medical appointments or from getting medications? No 07/2022 In the past 12 months, has l ack of transportation kept you from meetings, work, or from getting things needed for daily living? No 12/09/2022 Housing Stability Answer Date Recorded What is your living situation today? I have a [facility] place to live 12/09/2022 Comments Unknown Sex and Gender Information Value Date Recorded Sex Assigned at Female 12/09/2022 4:06 PM CDT Legal Sex Female 8:48 AM DOCTOR OF NURSE ANESTHESIA Gender Identity Female 12/09/2022 4:06 PM CDT Sexual Orientation Straight 12/09/2022 4: 06 PM CDT Last Filed Vital Signs Vital Sign Reading Time Taken Comments Blood Pressure 145/89 12/13/2022 8:42 AM CDT Pulse 76 12/13/2022 8:42 AM CDT Temperature 36.7 C (98 F) 01/21/2023 8:59 AM CDT Respiratory Rate - - Oxygen Saturation - - Inhaled Oxygen Concentration - - Weight 84.9 kg (187 lb 2.7 oz) 01/21/2023 8:59 A M CDT Height - - Body Mass Index - - Plan of Treatment Health Maintenance Due Date Last Done Comments HIV Screening 1981 Hepatitis C Screening 1981 Lipid (Cholesterol) Screening 1981 COVID-19 Vaccine (#1) 1986 Hepatitis B Vaccines (2 of 3 - 3-dose series) 08/09/1994 07/12/1994 Pneumococcal vaccine (0-49 years) (1 of 2 - PCV) 02/19/2000 Zoster Vaccines (1 of 2) 02/19/2000 HPV Vaccines (1 - Risk 3-dose SCDM series) 02/19/2008 Influenza Vaccine (#1) 2024 6, 12/24/2007, 01/28/2007 Depression Screening (Annual PHQ-2) 04/07/2024 DTaP,Tdap,and Td Vaccines (5 - Td or Tdap) 12/13/2027 12/12/2017, 04/29/2011, 04/07/2000, Additional history exists Mammogram Discontinued 04/19/2022, 04/11/2022 IPV Vaccines Aged Out No longer eligi ble based on patient's age to complete this topic Procedures Procedure Name Priority Date/Time Associated Diagnosis Comments OUTSIDE MG MAMMOGRAM Routine 04/19/2022 9:15 AM DOCTOR OF NURSE ANESTHESIA from Last 3 Months or Most Recently Relevant to Health Maintenance Results * MM clip placement LT-Outside Mammogram (04/19/2022 9:15 AM DOCTOR OF NURSE ANESTHESIA) Narrative IIMS - 11/19/2022 3:43 PM CDT This order has been created and auto-finalized to support the import of outside images. If available, original interpretation can be found on the Media Tab in Chart Review, in Document Viewer, or as an image in QREADS. If a re-interpretation or overread is required please follow defined workflow. us Provider Not In System IMG BI PROCEDURES Final R esult IIMS NA from Last 3 Months or Most Recently Relevant to Health Maintenance Insurance [facility]
--- OUTSIDE RECORDS SUMMARY | 2024-09-29 10:53 | XMS_ITS | Clinical Summary ---
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 15 Tablet 1 3 Active calcium carbonate-vitamin D3, 600 mg-400 unit, (Calcium 600 + D) 600 mg-10 mcg (400 unit) tablet Take 1 Tablet by mouth two times daily with meals. Active ondansetron (ZOFRAN ODT) [address] 1 Tablet (8 mg) on the tongue every 8 hours if needed for nausea. 5 Tablet 09/02/2023 10:08 AM CDT 4 Active BIOTIN-LUTEIN ORAL Take by mouth once daily. 3 Active ghlziuqg-ldhkdd-exl orbic acid (Collagen 1500 Plus C) 500 mg-800 mcg- 50 mg cap Take by mouth. 3 Active hydrOXYzine HCl (ATARAX) 5 mg tablet Take by mouth. 3 Active buPROPion (WELLBUTRIN XL) 300 mg Extended-Release tabletIndications:D epression with anxiety,Depression due to physical illness Take 1 Tablet (300 mg) by mouth once daily. 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 She detailed summary letter dated 06/06/22 by cancer genetic counselor. Linda Goldstein MS, [facility] 06/07/2022 11:14 AM Lichen sclerosus 05/29/2022 Female sexual dysfunction 10/31/2021 Obesity, unspecified 05/15/2012 Endometriosis, site unspecified 08/10/2007 Resolved Problems Problem Noted Date Diagnosed Date Resolved Date Unspecified examination 07/01/201107/07 Overview (07/01/2011): Last mammogram, 06/16 Abscess, vulva 05/28/2008 08/01/2011 care and examinat ion immediately after delivery 03/21/2007 08/01/2011 Acute posthemorrhagic anemia 03/21/2007 08/01/2011 Supervision of other normal 09/11/2006 05/29/2008 Encounters Date Type Department Care Team Description 07/05/2024 3:00 PM CDT Office Visit [address] [address] Yaw Flores PA Pre-Op Exam 07/04/2024 Travel from Last 3 Months Immunizations Immunization Administration Dates Next Due DTP 08/04/1986 Hepatitis A (Adult) 09/09/2016,10/30/2015 Hepatitis B (Adult) 07/12/1994 Hepatitis B (Peds) 07/11/1995,11/28/1994 Influenza, IIV3 (Age >=3 years) 12/24/2007,01/28 Influenza, IIV4 03/25/2016 MMR 02/24/1992 Oral Polio Vaccine 08/04/1986 Td (Age >=7 Years) 01/09/2004 Td, Preservative Free (age >= 7 Years) 8 Tdap 04/29/2011,04/07/2000 Family History Medical History Relation Name Comments Good Health Daughter PASH - breast a denomas Allergies Father Asthma Father Hyperlipidemia Father Cancer-breast Maternal Aunt Arthritis Maternal Grandfather Cancer Maternal Grandfather small c ell lung cancer - chemo 08/2009 Arthritis Maternal Grandmother Osteoporosis Maternal Grandmother Stroke Maternal Grandmother Cancer-prostate Maternal Uncle Allergies Mother Cancer Mother melanoma Osteoporosis Mother Cancer Other 1 leukemia - mGGF A/lung/prostate - mGGFa Cancer-breast Other 2 maternal great gm 70 at dx Cancer Paternal Aunt uterine and ov cyn cancer age 16 age 60 Cancer-ovarian Paternal Aunt Heart Disease Paternal Grandmother deceas ed age 65 from CVA, CAD, tobacco abuse Stroke Paternal Grandmother Allergies Sister 1 Sara Asthma Sister 1 Sara Thyroid nodules Sister 2 Magda Anesthesia Problem No Family History Blood Disease No Family History Cancer-colon No Family History Clotting disorder No Family History Relation Name Status Comments Daughter Alive Father Alive Maternal Aunt Alive Maternal Grandfather Maternal Grandmother (Age 65 yrs ) Maternal Uncle Alive Mother Alive Other 1 Other 2 Paternal Aunt Paternal Grandfather (Age ?) Paternal Grandmother (Age 70's) Sister 1 Sara Alive Sister 2 Magda Alive Son Alive Social History Tobacco Use Types Packs/Day Years Used Date Smoking Tobacco: Former Cigarettes 0.5 16.8 1 996 - 02/11/2012 Smokeless Tobacco: Never Tobacco Cessation:Counseling Given: Not Answered Comments:tobacco quitting general health infomation given Alcohol Use Standard Drinks/Week Comments Yes 3 (1 standard drink = 0.6 oz pur e alcohol) occasional PHQ-2 Answer Date Recorded PHQ-2 TOTAL SCORE 2 09/24/2023 Social Connections Answer Date Recorded Do you often feel lonely or isolated from those around you? 0 08/19/2023 Financial Resource Strain Answer Date R ecorded Difficulty of Paying Living Expenses 3 08/19/2023 Difficulty of Paying Living Expenses Not on file 08/19/2023 Food Insecurity Answer Date Recorded Do you worry your food will run out before you are able to buy more? 1 08/19/2023 Transportation Needs Answer Date Record ed Does lack of transportation keep you from medica l appointments? 1 08/19/2023 Does lack of transportation keep you from work, meetings or getting things that you need? 1 08/19/2023 Housing Stability Answer Date Recorded What is your housing situation today? 1 08/19/2023 Utilities Answer Date Recorded Do you have trouble paying f or utilities (for example, heat, electricity, water, phone)? 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 Not on file Not on file Not on file Obstetrics History Para Term AB IAB SAB Ectopic Multiple Livin g Live Births 2 2 2 0 0 0 0 0 0 2 2 Date Outcome GA Total Labor Labor/2nd/3rd Weight Sex Type Anes PTL Mirta A1 A5 Name Clin 2000 Term 40w 0d 12h 00m/ 4.51 kg (9 lb 15 oz) M VAGINA L VACU Livin g Adonay Comments:none 2006 Term F C-Sect ion Livin g Laurie le Last Filed Vital Signs Vital Sign Reading Time Taken Comments Blood Pressure 120/78 07/05/2024 3:15 PM CDT Pulse 104 07/05/2024 3:15 PM CDT Temperature 36.7 C (98 F) 07/05/2024 3:15 PM CDT Respiratory Rate 18 08/07/2022 10:53 AM CDT Oxygen Saturation 96% 07/05/2024 3:15 PM CDT Inhaled Oxygen Concentration - - Weight 85.4 kg (188 lb 3.2 oz) 07/05/2024 3:15 P M CDT Height 174.5 cm (5' 8.7) 07/05/2024 3:15 PM CDT Body Mass Index 28.03 07/05/2024 3:15 PM CDT Plan of Treatment Health Maintenance Due Date Last Done Comments COVID-19 vaccine series (#1) 1986 HIV for age 15-65 02/19/1996 Hepatitis C screening for ag e 18-79 1999 Pneumococcal series for age 6-49 (1 of 2 - PCV) 02/19/2000 Depression screening for age 12+ 09/24/2024 09/25/2023, 02/13/2023, 04/11/2022, Additional history exists Influenza Vaccine (Season Ended) 2024 03/25/2016, 12/24/2007, 01/28/2007 BMI (ht and wt on same day) for age 18+ 07/05/2025 07/05/2024, 05/26/2024, 03/24/2024, Additional history exists Tetanus booster 12/13/2027 12/12/2017, 04/08, 01/09/2004, Additional history exists Hepatitis B series for 19+ Completed 07/10, 11/28/1994, 07/12/1994 Tdap Completed 04/29/2011, 04/07/2000 Procedures Procedure Name Priority Date/Time Associated Diagnosis Comments HEMOGLOBIN Routine 07/05/2024 3:43 PM CDT Pre-op examination from Last 3 Months Results * HEMOGLOBIN (07/05/2024 3:43 PM CDT) HEMOGLOBIN 13.8 11.7 - 15.5 g/dL [place] [employer] Company[employer]indi Huang Blood BLOOD SPECIMEN / Unknown 07/05/2024 3:43 PM CDT 07/05/2024 3:43 PM CDT us Yaw [facility] Final Resul t [facility] [address] [place] [address], [facility] [address] [place] [address] from Last 3 Months Insurance [facility] COMP Advance Directives * Full Code (Latest Code Status on File) Date Activated Date Inactivated Comments 04/28/2014 12:35 PM 04/29/2014 2:27 AM * Full Code Date Activated Date Inactivated Comments 08/07/2011 8:00 AM 08/07/2011 5:39 PM * Full Code Date Activated Date Inactivated Comments 08/21/2009 4:39 PM 08/23/2009 4:22 PM * Full Code Date Activated Date Inactivated Comments 08/21/2009 12:07 PM 08/21/2009 4:39 PM * Full Code Date Activated Date Inactivated Comments 04/19/2009 11:51 AM 04/19/2009 12:06 PM Care Teams Sas Statistical Programmer Relationship Specialty [place] [address] [place] [address] PCP - General Physician Interior Design Assistant 04/11/22 Carol Norton, RN [address] [place] [address] [address] [place] [address] Nurse Navigator - Oncology Registered Nurse 09/04/22 Paige Moon MD [address] [place] [address] [place] [id number] Surgery - General 09/04/22
--- OUTSIDE RECORDS SUMMARY | 2024-09-29 10:53 | XMS_ITS | Clinical Summary ---
Author Organization [facility] Address [address] [place] [address] Care Team Providers Care Furnace Worker Name Role Phone Bill Fernández MD Primary Care Provider [phone] Source Comments You are receiving this document as you are listed as the primary care provider,follow-up provider, or the patient has been referred to you for consultation.This is in compliance with the Medicare andMedicaid EHR Incentive Program,which states Providers who transition their patient to another setting of careor provider of care or refers their patient to another provider of care shouldprovide summary care record for each transition of care or referral. [address] Allergies Active Allergy Reactions Criticality Noted Date Comments Hydromorphone Cardiovascular arrest High 05/31/2019 Hydromorphone Respiratory Arrest High 10/16/2015 Sulfa Antibiotics Anaphylaxis High 06/16/2015 Sulfacetamide Anaphylaxis High 05/31/2019 Medications cholecalciferol (VITAMIN D3) 1000 UNITS tablet Take 1,000 Units by mouth two times a day. Active cyanocobalamin 2000 MCG tablet Take 3,000 mcg by mouth daily. Active omeprazole (PRILOSEC) 20 MG capsuleIndicatio ns:Gastroesophag eal reflux disease without esophagitis Take 1 Cap by mouth daily. Take 1 hour before a meal. 30 Cap 3 7 Active triamcinolone acetonide (KENALOG) 0.1 % creamIndications :Rash and nonspecific skin eruption Apply to rash bid-tid prn 45 g 7 Active Additional Information Patient not taking.Reported on 01/28/2017 buPROPion (WELLBUTRIN XL) 300 MG 24 hour release tablet TAKE 1 TABLET BY MOUTH EVERY MORNING 90 Tab 2 8 Active GAURI 3-0.02 MG tabletIndication s:Surgical menopause TAKE 1 TABLET BY MOUTH DAILY 28 Tab 8 Active escitalopram oxalate (LEXAPRO) 10 MG tablet TAKE 1 TABLET BY MOUTH EVERY 24 HOURS 90 Tablet 9 Active escitalopram (LEXAPRO) 20 MG tabletIndication s:TOÑO (generalized anxiety disorder) (HRC),Moderate episode of recurrent major depressive disorder (HRC) Take 1 Tablet by mouth daily. 90 Tablet 3 0 Active drospirenone-eth inyl estradiol (DHARMESH) 3-0.03 MG tabletIndication s:Hot flashes Take 1 Tablet by mouth daily. 84 Tablet 3 0 Active Phentermine HCl 37.5 MG capsule Take 37.5 mg by mouth daily. 0 Active buPROPion (WELLBUTRIN XL) 300 MG 24 hour release tabletIndication s:TOÑO (generalized anxiety disorder) (HRC),Moderate episode of recurrent major depressive disorder (HRC) Take 1 Tablet by mouth daily. 90 Tablet 3 1 Active Active Problems Problem Noted Date Diagnosed Date TOÑO (generalized anxiety disorder) 05/31/2019 Moderate episode of recurrent major depressive d isorder 05/31/2019 Posttraumatic stress disorder 05/31/2019 Hot flashes 05/31/2019 Hx of sarcoidosis 11/18/2016 Hx of endometriosis 11/18/2016 Bilateral sensorineural hearing loss 11/20/2015 Vitamin B12 deficiency 10/23/2015 Anxiety 10/16/2015 S/P ENIO-BSO (total abdominal hysterectomy and bilateral salpingo-oophorectomy) 06/16/2015 Surgical menopause 06/16/2015 Dysthymic disorder 06/16/2015 Family history of autoimmune disorder 06/16/2015 Resolved Problems Problem Noted Date Diagnosed Date Resolved Date Malaise and fatigue 06/16/2015 11/19/19 17 Early menopause 06/16/2015 06/16/2015 Immunizations Immunization Administration Dates Next Due DTP 08/04/1986,08/04/1986 HepA Adult (19+ yrs) 09/09/2016,10/30/2015 HepB Adult (Engerix-B, 20+ yrs, 3 dose series) 0 07/12/1994 HepB Ped/Adol (0-18 yrs) 07/11/1995,11/28/1994 Influenza IIV4 (Quadrivalent) 0.5mL (45544) 03/07 MMR 02/24/1992 OPV, Trivalent (Orimune or tOPV) 08/04/1986,07/08 TDAP (ADACEL) 04/29/2011 Td 01/09/2004 Family History Medical History Relation Name Comments Allergies Father Asthma Father Cancer, Skin Father basal High Blood Pressure Father High Cholesterol Father Hyperlipidemia Father Lupus Mother MS Mother Myastenia Gravis Mother Other[Other] Mother Has MS, Sjogren 's, Lupus, Myesthesina Gravis, Rheumatoid arthritis/Melanoma. Rheumatic Fever Mother raynaud's phenomenon Mother restless leg Mother sjorgens Mother Vitiligo Daughter 1 Other[Other] Daughter 2 Stomach ulcers Bipolar Disorder Maternal Aunt Cancer, Breast Maternal Aunt nisreen's thyroiditis Maternal Aunt Cancer Maternal Grandfather Lung ca ncer. Other[Other] Maternal Grandfather MS Other[Other] Maternal Grandmother Vasculi tis, Lupus, blood clots. Cancer, Uterine Paternal Aunt Other[Other] Paternal Grandfather in a fire in his 30s, was a novelties sales representative. Stroke Paternal Grandmother Other[Other] Sister 1 Premature menop ause, can't have kids Migraines Sister 2 Other[Other] Sister 2 Lyme disease prolong QT Son 1 Other[Other] Son 2 Long QT syndrom e Relation Name Status Comments Father Alive Mother Alive Daughter 1 Daughter 2 Alive Maternal Aunt Maternal Grandfather Maternal Grandmother Paternal Aunt Paternal Grandfather Paternal Grandmother Sister 1 Alive Sister 2 Alive Son 1 Son 2 Alive Social History Tobacco Use Types Packs/Day Years Used Date Smoking Tobacco: Former Cigarettes Q uit: 06/15/2009 Smokeless Tobacco: Never Alcohol Use Standard Drinks/Week Comments Yes 0 (1 standard drink = 0.6 oz pur e alcohol) 0-2 per week PHQ-2 Answer Date Recorded PHQ-2 Score 4 05/31/2019 Comments No Sex and Gender Information Value Date Recorded Sex Assigned at Not on file Legal Sex Female 7:02 AM CDT Gender Identity Not on file Sexual Orientation Not on file 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 on file 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 on 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 Not on file Not on file Not on file Last Filed Vital Signs Vital Sign Reading Time Taken Comments Blood Pressure 143/96 05/31/2019 9:10 AM HEAVY CLEANER Pulse 80 05/31/2019 9:10 AM HEAVY CLEANER Temperature 36.8 C (98.2 F) 10/06/2015 3:40 PM CDT Respiratory Rate 16 01/03/2016 2:08 PM CDT Oxygen Saturation - - Inhaled Oxygen Concentration - - Weight 85.7 kg (188 lb 14.4 oz) 05/31/2019 9:09 AM HEAVY CLEANER Height 175 cm (5' 8.9) 05/31/2019 9:09 AM HEAVY CLEANER Body Mass Index 27.98 05/31/2019 9:09 AM HEAVY CLEANER Plan of Treatment Health Maintenance Due Date Last Done Comments Hep C Screening (Preventive Services) 1981 Mammogram 1981 IPV (Polio) Vaccine (2 of 3 - 4-dose series) 09/01/1986 08/04/1986, 08/04/1986 DTaP/Tdap/Td Vaccine (5 - Tdap) 04/29/2021 04/29/2011, 01/09/2004, 04/07/2000, Additional history exists Adult Preventive Visit 05/31/2021 05/31/2019 COVID-19 Vaccine ( - season) 2023 Influenza Vaccine (Season Ended) 2024 03/25/2016 Zoster/Shingles Vaccine (1 of 2) 2031 HepB Vaccine Completed 07/11/1995, 11/06, 07/12/1994 HepA Vaccine Aged Out 09/09/2016, 10/30/2015 No lo nger eligible based on patient's age to complete this topic HIV Screening (Preventive Services) Completed 05/31/2019 HPV Vaccine Aged Out No longer eligi ble based on patient's age to complete this topic Hib Vaccine Aged Out No longer eligi ble based on patient's age to complete this topic MCV4 Vaccine Aged Out No longer eligi ble based on patient's age to complete this topic Meningococcal B Vaccine Aged Out No l onger eligible based on patient's age to complete this topic Pneumococcal Vaccine Aged Out No long er eligible based on patient's age to complete this topic Procedures Procedure Name Priority Date/Time Associated Diagnosis Comments HIV 1/2 AG/AB 4TH GEN Routine 05/31/2019 10:09 AM HEAVY CLEANER Screening for HIV (human immunodeficiency virus) from Last 3 Months or Most Recently Relevant to Health Maintenance Results * HIV 1/2 Ag/Ab 4th Generation (05/31/2019 10:09 AM HEAVY CLEANER) HIV 1/2 Antigen/Antib dipak (4th generation) Negative (Non Reactive) Negative (Non Reactive) 05/31/2019 4:40 PM HEAVY CLEANER [facility] Comment:HIV-1 p24 Antigen an d HIV-1/HIV-2 Antibody not detected Blood Venipuncture / Unknown 05/31/2019 10:09 AM HEAVY CLEANER 05/31/2019 10:09 AM HEAVY CLEANER us Catia Pearson PA-C LAB_1 Final Resul t [facility] [address] [place] [address], [facility] from Last 3 Months or Most Recently Relevant to Health Maintenance Care Teams Furnace Worker Relationship Specialty Start Date End Date Bill Fernández MD [address] [facility] [address] [place] [address] PCP - General 05/11/20
--- OUTSIDE RECORDS SUMMARY | 2024-09-29 10:53 | XMS_ITS | CCD ---
Author Name Interface, [id number] lity Address [address] [facility] [address] [address] [facility] Address [address] [facility] [address] [address] Allergies and Adverse Reactions Medication/Group Name Reaction Severity Date HYDROMORPHONE Itching 05/15/2022 SULFA (SULFONAMIDE ANTIBIOTICS) Nausea Only 05/15/2022 Dilaudid Moderate to severe 3 Reason for Visit OV 60 MIN Medications Date Name Route Dose Frequency Instructions Start Date End Date Status 023 Bupropion (XL) Oral 24 hr Tab Oral 150.0 mg Once a Day 04/08/19 23 active 023 Bupropion (XL) Oral 24 hr Tab Oral 150.0 mg Once a Day 04/08/19 23 stopped 021 Hydroxyzine HCl Oral Oral 10.0 mg Once every 8 Hours 03/29/20 21 active 021 Cholecalciferol Oral Oral 5000.0 U Once a Day 02/02/20 21 active Problems Diagnosis Status Date of Diagnosis Resolution Date Encounter for other plastic and reconstructive surgery following medical procedure or healed injury Active History of surgery Active Breast cancer, female Active Social History Date Name Value 05/15/2022 Sex Female
--- OUTSIDE RECORDS SUMMARY | 2024-09-29 10:53 | XMS_ITS ---
Author Name Interface, [id number] lity Address [address] [facility] [address] [address] [facility] Address [address] [facility] [address] [place] [address] Allergies and Adverse Reactions Medication/Group Name Reaction Severity Date HYDROMORPHONE Itching 05/15/2022 SULFA (SULFONAMIDE ANTIBIOTICS) Nausea Only 05/15/2022 Dilaudid Moderate to severe Plan Date Type Value 09/10/2022 APPOINTMENT OV 60 MIN 05/15/2022 APPOINTMENT NEW PT CONSULT 6 0 MIN Reason for Visit OV 60 MIN Encounters Date Name 05/15/2022 Breast cancer, femal e 05/15/2022 Encounter for other plastic and reconstructive surgery following medical procedure or healed injury 05/15/2022 History of surgery Immunizations Date Name Route Dose Instructions Refusal Reason Stat us Covid-19 vaccine (Pfizer) Patient declined/rejected Not Administered Medications Date Name Route Dose Frequency Instructions Start Date End Date Status 023 Bupropion (XL) Oral 24 hr Tab Oral 150.0 mg Once a Day 04/08/19 23 active 021 Hydroxyzine HCl Oral Oral 10.0 mg Once every 8 Hours 03/29/20 21 active 021 Cholecalciferol Oral Oral 5000.0 U Once a Day 02/02/20 21 active Problems Diagnosis Status Date of Diagnosis Resolution Date Encounter for other plastic and reconstructive surgery following medical procedure or healed injury Active History of surgery Active Breast cancer, female Active Vital Signs Date Type Value 05/15/2022 Heart Beat 84.00 05/15/2022 Respiratory Rate 16.00 05/15/2022 Oxygen Saturation 97.00 05/15/2022 Intravascular Systolic 130 05/15/2022 Intravascular Diastolic 81 05/15/2022 BSA 2.02 05/15/2022 Weight 191.40 05/15/2022 Height 68.50 05/15/2022 BMI 28.68 05/15/2022 Pain Scale 1.00
--- OUTSIDE RECORDS SUMMARY | 2024-09-29 10:53 | XMS_ITS ---
Author Organization [facility] Address [address] [place] [address] Care Team Providers Care Cyber Systems Administrator Name Role Phone Unavailable Primary Care Provider Unavailabl e Active Problems Problem Noted Date Diagnosed Date Malignant Neoplasm Of Breast Upper Outer Quadrant Female Left 12/11/2022 Cancer Staging:Clinical stage from 04/19/2022:Stage IIA(cT2, cN1(f), cM0, G1, ER+, PA+, HER2-) - Unsigned Pathologic stage from 11/05/2022:No Stage Recommended(ypT2, pN1a, cM0, G1, ER+, PA+, HER2-) - Unsigned Current Treatment and Therapy Plans No current plan information found. Past Treatment and Therapy Plans No past plan information found. Past Radiation Episodes * 3D STYLE ADVISOR: Left Chest wallOverview* First Treatment Date Last Treatment Date Treatment Site Technique Goal Episode Provider 12/23/2022 01/24/2023 Left Chest wall 3D STYLE ADVISOR Curative * Linked Problems Malignant Neoplasm Of Breast Upper Outer Quadrant Female Left Treatment Courses* Course 1xBreast 12/23/2022 - 01/24/2023 Treatment Period Fraction Dose Fractions Total Dose Plans Planned [id number] 01/15/2023 - 01/24/2023 200 cGy 1 ,600 cGy [id number] 12/23/2022 - 01/14/2023 200 cGy 3 ,400 cGy Reference Points Delivered [id number] 12/23/2022 - 01/24/2023 5,000 cGy
[2024-09-29 10:59] VITALS: BP 123/85; PULSE 92; RESP 18; TEMP 36.7; O2SAT 98; BMI 26.6
--- OUTSIDE RECORDS SUMMARY | 2024-09-29 12:11 | XMS_ITS ---
Author Name Interface, [id number] lity Address [facility] [place] [id number] [facility] Address [facility] [place] [address] Allergies and Adverse Reactions Plan Reason for Visit Encounters Immunizations Medications Problems Vital Signs
--- OUTSIDE RECORDS SUMMARY | 2024-09-29 12:11 | XMS_ITS | CCD ---
Author Name Interface, [id number] lity Address [facility] [address] [facility] Address [facility] [place] [address] Allergies and Adverse Reactions Reason for Visit Medications Problems Social History
--- OUTSIDE RECORDS SUMMARY | 2024-09-29 12:11 | XMS_ITS ---
Author Name Interface, [id number] lity Address [address] [facility] [address] [address] [facility] Address [address] [facility] [address] [place] [address] Allergies and Adverse Reactions Medication/Group Name Reaction [...]
--- OUTSIDE RECORDS SUMMARY | 2024-09-29 12:11 | XMS_ITS | CCD ---
Author Name Interface, [id number] lity Address [address] [facility] [address] [address] [facility] Address [address] [facility] [address] [address] Allergies and Adverse Reactions Medication/Group Name Reaction [...]
== END 2024-09-29 12:19 | disposition left against medical advice (07) ==
LOC: ED 12:09
PROVIDERS: Emergency Provider Emergency Medicine; PCP Physician Assistant Medical
DX: Z53.21 Procedure and treatment not carried out due to patient leaving prior to being seen by health care provider (principal)
CPT/HCPCS: 99281

== ENCOUNTER 2024-10-12 16:22 | Outpatient (CLI) | payer BC, SELFPAY ==
--- NOTE | 2024-10-12 16:45 | CRLHL7_ITS ---
For Patients: As a result of the Century Cures Act, medical imaging exams and procedure reports are released immediately into your electronic medical record. You may view this report before your referring provider. If you have questions, please contact your health care provider. Indication: LEFT SIDED CHEST WALL PAIN Technique: Postcontrast CT chest. 75 cc Isovue 370 intravenous contrast Please note that all CT scans at this facility use dose modulation, iterative reconstruction, and/or weight-based dosing when appropriate to reduce radiation dose to as low as reasonably achievable. Comparison: 03/24/2024 Findings: Lungs are clear. No infiltrate, edema, effusion or pneumothorax. No pulmonary nodule. Intact ribcage. No adenopathy. Postop changes left axilla. Implants intact. Upper abdomen unremarkable. Stable bone island within the left lateral 6th rib. Impression: No acute findings. Please note that all CT scans at this facility use dose modulation, iterative reconstruction, and/or weight-based dosing when appropriate to reduce radiation dose to as low as reasonably achievable. Dictated by Donald Bowie MD @ 10/13/2024 12:11:19 PM (Electronically Signed)
== END 2024-10-12 16:23 | disposition home or self-care (01) ==
LOC: CT 16:22
PROVIDERS: PCP Physician Assistant Medical; Visit Provider Physician Assistant
DX: R07.89 Other chest pain (principal); C50.412 Malignant neoplasm of upper-outer quadrant of left female breast; Z17.0 Estrogen receptor positive status [ER+]; Z15.01 Genetic susceptibility to malignant neoplasm of breast; Z15.09 Genetic susceptibility to other malignant neoplasm
CPT/HCPCS: 71260; Q9967

== ENCOUNTER 2024-12-15 13:45 | Outpatient (RCR) | payer BC, SELFPAY | END 2025-03-16 10:59 | disposition home or self-care (01) | PROVIDERS: PCP Physician Assistant Medical; Visit Provider Physician Assistant | DX: Z48.3 Aftercare following surgery for neoplasm (principal); C50.612 Malignant neoplasm of axillary tail of left female breast; R07.89 Other chest pain; Z51.89 Encounter for other specified aftercare | CPT/HCPCS: 97110; 97140; 97161 ==

== ENCOUNTER 2025-01-10 10:00 | Outpatient (RCR) | payer BC, OTHER, SELFPAY ==
--- NOTE | 2024-09-30 15:30 | ONC.NURNOTE ---
Patient called to report she was just discharged from the [facility]. She reported with an 8 day history of chest pain. Her pain is on the left, near her axilla and extending towards her rib. She describes it as sharp, constant and worse with inhalation. She denies cough, fever, etc. UR did a CXR, troponins and D-Dimer and all were normal. UR encouraged her to call her oncology team for further work up. Patient scheduled to see Reanna Mckeon on 10/04 for assessment.
== END 2025-03-15 23:59 | disposition home or self-care (01) ==
LOC: CCIC 10:00
PROVIDERS: PCP Physician Assistant Medical; Referring Provider Physician Assistant Medical; Visit Provider Internal Medicine Hematology & Oncology
DX: C50.412 Malignant neoplasm of upper-outer quadrant of left female breast (principal); Z17.0 Estrogen receptor positive status [ER+]; M85.80 Other specified disorders of bone density and structure, unspecified site; Z90.13 Acquired absence of bilateral breasts and nipples; N20.0 Calculus of kidney; L90.0 Lichen sclerosus et atrophicus; Z90.710 Acquired absence of both cervix and uterus
CPT/HCPCS: 99213; 99214; 99215; G0463